=== PATIENT | female | born 1935 | race Caucasian/White ===

== ENCOUNTER → 2017-07-11 | Outpatient (CLI) | payer MEDICARE, BC ==
--- NOTE | 2017-07-12 22:54 | MR ---
MRI CERVICAL SPINE: CLINICAL HISTORY: Spinal stenosis with myelopathy, neuropathy, imbalance, and abnormal reflexes all p er order. Patient has balance issues and dizziness for 3 months causing pain and weakness into both a jo and fingers per patient. TECHNIQUE: Multiplanar, multisequence imaging of the cervical spine is performed without IV contrast. COMPARISON: None. FINDINGS: Coronal images show levoconvex scoliosis centered near cervicothoracic junction. Sagittal i mages show increased cervical kyphosis. Sagittal images of the cervical spine show the craniocervical junction to appear within normal limits. The cervical and upper thoracic spinal cord is normal in c ourse, caliber, and signal. The vertebral body heights are normal. There is moderate to severe multi level disc space narrowing and moderate multilevel spurring. There are posterior spur disc complexes and disc herniations effacing anterior thecal sac at all cervical levels on sagittal images. The bone marrow signal intensity is within normal limits. Axial [id number]-[id number] level shows central disc protrusion effacing the anterior thecal sac seen best on sagittal images, bilateral neural foramina are patent. Axial images at C3-C4 level show more prominent focal right paracentral disc protrusion effacing the anterior thecal sac up to ventral surface of spinal cortex image 35, there is mild to moderate left g reater than right neural foraminal narrowing due to marginal spurring and uncovertebral facet arthrop athy bilaterally. Axial images at C4-C5 shallow posterior spur disc complex effacing anterior thecal sac of the ventral surface of spinal cord with moderate to severe left and mild right-sided neural foraminal narrowing due to marginal spurring and uncovertebral facet arthropathy. Axial images at C5-C6 levels show left paracentral disc protrusion effacing anterior lateral thecal s ac of the ventral surface of spinal cord on axial image 24, there is mild left greater than right abebe ral foraminal narrowing due to marginal spurring. Axial images at C6-C7 levels with broad-based left paracentral disc protrusion effacing the anterolat eral thecal sac causing some mass effect along the ventral surface of spinal cord more prominent than on sagittal images, there is no significant neural foraminal narrowing noted bilaterally. Axial images at C7-T1 level are felt within normal limits. IMPRESSION: Scoliosis and exaggerated cervical curvature, multilevel degenerative changes are seen as detailed above.
== END | disposition home or self-care (01) ==
LOC: RADMRIMAIN 16:20
PROVIDERS: ATTEND Psychiatry & Neurology Neurology
DX: M47.812 Spondylosis without myelopathy or radiculopathy, cervical region (principal); M41.82 Other forms of scoliosis, cervical region; M43.8X2 Other specified deforming dorsopathies, cervical region; G60.9 Hereditary and idiopathic neuropathy, unspecified; R29.2 Abnormal reflex
CPT/HCPCS: 72141

== ENCOUNTER → 2019-04-01 | Outpatient (CLI) | payer MEDICARE, BC ==
[2019-04-01 18:52] LABS: Albumin 4.8 g/dL (3.80-4.90); Albumin/Globulin Ratio 3.2 (1.60-3.17); Anion Gap 8.4 mmol/L (4.00-12.00); Carbon Dioxide 29.6 mmol/L (21.6-31.8); Chol/HDL Ratio 2.29; Globulin 1.5 g/dL (1.6-3.3); LDL Cholesterol,Calculated 70.6 mg/dL (0.0-131.0); Non-African American GFR(CKD) 68.2 (60.0-200.0); Potassium 4.4 mmol/L (3.5-5.5); Total Bilirubin 0.6 mg/dL (0.3-1.2); Total Protein 6.3 g/dL (6.2-8.2); VLDL Calculation 17.4 mg/dL (5.00-40.00)
== END | disposition home or self-care (01) ==
LOC: LABWHC1 12:08
PROVIDERS: ATTEND Internal Medicine Interventional Cardiology
DX: E78.2 Mixed hyperlipidemia (principal)
CPT/HCPCS: 36415; 80053; 80061

== ENCOUNTER → 2019-04-05 | Day surgery (SDC) | payer MEDICARE, BC ==
[2019-04-02 09:35] VITALS: BMI 24.3
[~2019-04-05] MED LIST: ALPRAZolam 0.25 MG TAB PO PRN; ALPRAZolam 0.5 MG TAB PO PRN; ASPIRIN 325 MG TAB PO STA; ASPIRIN 81 MG PO SCH; CALCIUM CARBONATE 500 MG CHEWABLE PO SCH; DILTIAZEM CD 120 MG CAP.ER.24H PO SCH; DOCUSATE 100 MG CAP PO PRN; FLUTICASONE 50MCG/SPRAY NASAL 16GM EA NOSTRIL SCH; HEPARIN SODIUM 1,000 UN/ML (10ML VL) IV ONE; HEPARIN SODIUM 1,000 UN/ML (10ML VL) ONE; HYDROcodone/APAP 5-325MG 1 EACH TAB PO SCH; IOPAMIDOL-370 125ML BTL INJ ONE; LIDOCAINE 1% INJ 10MG/ML (20 ML MDV) ONE; LISINOPRIL 5 MG TAB PO SCH; MULTIVITAMINS, THERA 1 EACH TAB PO SCH; NITROGLYCERIN SL TABS 0.4 MG TAB SUBLINGUAL PRN; NON FORMULARY DRUG (Turmeric Root Extract [Turmeric] 500 MG) PO SCH; RX INFO: IV CONTRAST WAS GIVEN 1 EACH MISC MISCELLANE PRN; SERTRALINE 50 MG TAB PO SCH; SODIUM CHLORIDE 0.9% 1,000 ML IV SCH; SODIUM CHLORIDE 0.9% 1,000 ML in EMPTY BAG 1 BAG IV ONE; VERAPAMIL 2.5 MG/ML 2 ML AMP ONE; VERAPAMIL SYRINGE (5 MG/10 ML) INTRAARTER ONE; fentaNYL (PF) 50 MCG/ML 2 ML AMP IV ONE; fentaNYL (PF) 50 MCG/ML 2 ML AMP ONE
[2019-04-05 07:00] LABS: Basophils # (A) 0.1 k/uL (0-0.2); Basophils % (A) 1 %; Eosinophils # (A) 0.2 k/uL (0-0.7); Eosinophils % (A) 3 %; HCT 41.4 % (34.0-46.0); HGB 14.2 gm/dL (11.4-16.0); Lymphocytes % (A) 18 %; MCH 31.9 pg (25.0-35.0); MCHC 34.3 g/dL (31.0-37.0); MCV 92.9 fL (80.0-100.0); Mean Platelet Volume 7.9; Monocytes # (A) 0.3 k/uL (0-1.0); Monocytes % (A) 6 %; Neutrophils # (A) 3.7 k/uL (1.3-7.7); Neutrophils % (A) 70 %; Platelet Count 194 k/uL (150-450); RBC 4.46 m/uL (3.80-5.40); RDW 12.2 % (11.5-15.5); WBC 5.3 k/uL (3.8-10.6)
[2019-04-05 07:03] VITALS: TEMP 98
[2019-04-05] MEDS: LIDOCAINE 1% INJ 10MG/ML (20 ML MDV) SQ ONE ×2 (07:38→07:52)
[2019-04-05 08:45] VITALS: RESP 16
[2019-04-05 10:49] VITALS: BP 141/74; PULSE 57
--- NOTE | 2019-04-05 11:13 | CC ---
CARDIAC CATHETERIZATION REPORT Mrs. Najera is an 83-year-old female with known history of hypertension, hyperlipidemia, who has been complaining of progressive symptoms of dyspnea on exertion as well as chest discomfort. She had an abnormal myocardial perfusion imaging. In view of that, recommendations were made regarding cardiac catheterization, the procedures, risks, and complications were discussed with the patient who is in full understanding and agreement. PROCEDURE: Patient was brought to field laborer in a fasting semi-sedated state after receiving fentanyl and Benadryl and achieving moderate conscious sedated state. Using Xylocaine anesthesia and Seldinger technique, a 6-Filipino sheath was introduced in the right radial artery. Attempts to advance the right Walter catheter into ascending aorta were unsuccessful because of the severe tortuosity at that time. Using Xylocaine anesthesia and Seldinger technique, a 6-Filipino sheath was introduced in the right femoral artery. Selective right and left coronary angiography performed using 6-Filipino 5 bend left Walter catheter and 4 bend right Walter catheter. Images of the coronary artery including hemiaxial views were obtained. Following that, a 6-Filipino tight pigtail catheter was introduced into the left ventricle and pressures were calculated. Subsequently, an ascending aortogram was performed in the MADAI view. Subsequently, catheter and sheath were removed. Hemostasis was obtained with deployment of an Angio- Seal in the right femoral artery and a TR band in the right radial artery. There was no immediate complication. The patient was returned to her room in stable condition. Of note, the patient received 3500 units of intravenous heparin as well as intra- arterial verapamil. FINDINGS: LEFT MAIN: This is a large-sized vessel bifurcating into left circumflex, left anterior descending artery. Left main coronary artery has no evidence of high- grade stenosis. LEFT ANTERIOR DESCENDING ARTERY: This is a large-sized vessel, reaching toward the apex with a wraparound apex segment, tortuous, giving rise to a large diagonal branch. The left anterior descending artery in mid segment has a 30% to 40% plaque. The rest of the vessel has no high-grade stenosis. LEFT CIRCUMFLEX: This is a nondominant vessel, large in caliber, giving rise to 2 obtuse marginal branch, the first one is very proximal. The left circumflex and its branches have no evidence of obstructive coronary artery disease. RIGHT CORONARY ARTERY: This is a dominant vessel, bifurcating distally into PDA and posterolateral segment and branches. The right coronary artery in the proximal segment has a tubular lesion of about 30%-40%. The rest of the vessel has no high-grade stenosis. LEFT VENTRICULOGRAM: Left ventriculogram was not performed. AORTOGRAM: Revealed a severely dilated ascending aorta at 5.9 cm with a 2 to 3+ aortic regurgitation. There was atherosclerotic changes of the abdominal aorta HEMODYNAMICS: There was no gradient across the aortic valve. The left ventricular end- diastolic pressure was 20-24 mmHg. CONCLUSION: 1. Mild to moderate disease involving the right coronary artery and the LAD. 2. 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 RECOMMENDATION: In view of finding anatomy, I recommend continue medical therapy. Patient will undergo a CT scan of the ascending aorta for further evaluation and further recommendation will be made regarding the need to undergo ascending aortic intervention. Those findings and recommendation were discussed with the patient and her family who are in full understanding and agreement. Duration of the procedure is 35 minutes. YVONNE / JUDYN: [id number] / MTDD
--- NOTE | 2019-04-05 11:16 | LTR ---
DATE OF SERVICE: 04/05/2019 RE: KhangTad bergeron Dear Dr. Mcgarry; I had the pleasure to perform cardiac catheterization on Mrs. Najera at [facility] on April 05 and a full copy of the procedure note will be forwarded to you. In brief, she was found to have mild to moderate coronary artery disease with aneurysmal formation of the ascending aorta. I would recommend to proceed further evaluation for her ascending aorta and aortic regurgitation to see if further intervention is needed. I will keep you updated on her progress. Thank you again for allowing me to perform in this patient's personal care. Please feel free to call for any questions. Sincerely yours, MD YVONNE [place] / JUDYN: [id number] /
== END ==
LOC: CATHCVL 06:04
PROVIDERS: ATTEND Internal Medicine Interventional Cardiology
DX: I25.10 Atherosclerotic heart disease of native coronary artery without angina pectoris (principal); I35.1 Nonrheumatic aortic (valve) insufficiency; I71.2 Thoracic aortic aneurysm, without rupture; I10 Essential (primary) hypertension; E78.2 Mixed hyperlipidemia; Q21.1 Atrial septal defect; Z79.899 Other long term (current) drug therapy; Z88.2 Allergy status to sulfonamides; Z82.49 Family history of ischemic heart disease and other diseases of the circulatory system
CPT/HCPCS: 93458; 93567; 85025; C1760; C1769 ×3; C1894 ×2; J2001; J3010; J1644; Q9967

== ENCOUNTER → 2019-04-09 | Outpatient (CLI) | payer MEDICARE, BC ==
[2019-04-09 13:56] LABS: African American GFR (CKD) >90 (>60 ml/min/1.73 sqM); Blood Urea Nitrogen 24 mg/dL (7-17); Non-African American GFR(CKD) 79 (>60 ml/min/1.73 sqM)
--- NOTE | 2019-04-09 15:33 | CT ---
CT CHEST FOR PULMONARY EMBOLISM. EXAMINATION TYPE: CT angio chest DATE OF EXAM: 04/09/2019 INDICATION: thoracic aneurysm, abn cath CT DLP: 557 mGycm, Automated exposure control for dose reduction was used. CONTRAST: Patient injected with 100 mL of Isovue 370. COMPARISON: 05/25/2014 TECHNIQUE: CT of the chest is performed on a spiral scan at 2 mm thick sections. Study is performed with intravenous contrast timed for evaluation for pulmonary embolism. This will limit additional po rtions of the evaluation. 3-D MIP images reconstructed by the technologist are reviewed on the compu ter in the coronal and sagittal planes. FINDINGS: No persistent filling defects are evident to suggest an acute pulmonary embolism. No mediastinal or hilar adenopathy enlarged by CT criteria is evident. The ascending aorta diameter at the level of the main pulmonary artery is 5.7 cm. The main pulmonary artery diameter at the bifur cation is 2.9 cm. The proximal aortic arch has a transverse dimension of 5.1 cm. Aorta at the aortic root is 4.7 cm. Descending thoracic aorta at the level of main pulmonary artery is 2.6 cm. No dissect ion is evident. No septal deviation is evident. There is a small amount reflux into the distal inferi or vena cava. Lung windows are clear. Limited CT section through the upper abdomen are unremarkable. There are loops of bowel lateral to th e liver. IMPRESSIONS: 1. Aneurysmal dilatation of the ascending thoracic aorta with an AP diameter maximum 5.6 cm at the le jesus manuel of main pulmonary artery.
== END | disposition home or self-care (01) ==
LOC: RADCTMAIN 13:14
PROVIDERS: ATTEND Internal Medicine Interventional Cardiology
DX: I71.2 Thoracic aortic aneurysm, without rupture (principal); I10 Essential (primary) hypertension
CPT/HCPCS: 82565; 84520; 71275; 36415; Q9967

== ENCOUNTER → 2019-04-29 | Outpatient (CLI) | payer MEDICARE, BC ==
[2019-04-29 10:31] LABS: HCT 43.2 % (34.0-46.0); HGB 14.2 gm/dL (11.4-16.0); MCH 31.3 pg (25.0-35.0); MCHC 32.9 g/dL (31.0-37.0); MCV 95.3 fL (80.0-100.0); Mean Platelet Volume 8.5; Platelet Count 203 k/uL (150-450); RBC 4.54 m/uL (3.80-5.40); WBC 4.9 k/uL (3.8-10.6)
[2019-04-29 10:36] LABS: Partial Thromboplastin Time 27.6 sec (22.0-30.0); Prothrombin Time 10.4 sec (9.0-12.0)
[2019-04-29 10:40] LABS: Appearance,Urine Clear (Clear); Bilirubin,Urine Negative (Negative); Blood,Urine Negative (Negative); Color,Urine Light Yellow; Glucose,Urine (UA) Negative (Negative); Ketones,Urine Negative (Negative); Leukocyte Esterase,Urine Negative (Negative); Nitrite,Urine Negative (Negative); Protein,Urine Negative (Negative); Specific Gravity,Urine 1.004 (1.001-1.035); Urobilinogen,Urine <2.0 mg/dL (<2.0)
[2019-04-29 10:57] LABS: Albumin 4.5 g/dL (3.5-5.0); Calcium 9.6 mg/dL (8.4-10.2); Magnesium 2.1 mg/dL (1.6-2.3); Potassium 4.2 mmol/L (3.5-5.1); Total Bilirubin 0.8 mg/dL (0.2-1.3); Total Protein 6.9 g/dL (6.3-8.2)
--- NOTE | 2019-04-29 10:58 | P.PN ---
Progress Note - Text Progress Note Date: 04/29/19 5 meter walk test completed: #1 4.98 sec #2 5.35 sec #3 5.31 sec Patient tolerated well, no chest pain or shortness of breath reported.
--- NOTE | 2019-04-29 11:43 | XR ---
EXAMINATION TYPE: XR chest 2V DATE OF EXAM: 04/29/2019 COMPARISON: CT chest dated 04/09/2019 HISTORY: Presurgical evaluation for valve replacement. TECHNIQUE: Frontal and lateral views of the chest are obtained. FINDINGS: There is no focal air space opacity, pleural effusion, or pneumothorax seen. The cardiac silhouette size is slightly enlarged but shifted to the left secondary to patient positioning. The os seous structures are intact. Moderate multilevel degenerative disc disease of the thoracic spine. Mil d diffuse osseous demineralization. IMPRESSION: No acute cardiopulmonary process. Ascending thoracic aortic prominence relates to the jair fuentes's known aneurysm on the prior CT of 04/09/2019.
--- NOTE | 2019-04-29 12:22 | US ---
EXAMINATION TYPE: US carotid duplex BILAT DATE OF EXAM: 04/29/2019 COMPARISON: 12/16/2013 CLINICAL HISTORY: I35.1 Aortic Stenosis I34.0 mitral Valve Regurgita. pre op cardiac surgery EXAM MEASUREMENTS: RIGHT: Peak Systolic Velocity (PSV) cm/sec ----- Right CCA: 54.0 ----- Right ICA: 83.6 ----- Right ECA: 80.8 ICA/CCA ratio: 1.55 RIGHT: End Diastole cm/sec ----- Right CCA: 21.1 ----- Right ICA: 28.2 ----- Right ECA: 9.4 LEFT: Peak Systolic Velocity (PSV) cm/sec ----- Left CCA: 49.8 ----- Left ICA: 121 ----- Left ECA: 76.0 ICA/CCA ratio: 2.43 LEFT: End Diastole cm/sec ----- Left CCA: 12.2 ----- Left ICA: 34.4 ----- Left ECA: 10.7 VERTEBRALS (direction of flow): Right Vertebral: Antegrade Left Vertebral: Antegrade Rhythm: Normal Mild to moderate plaque noted bilateral bifurcations. 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 No hemod ynamically significant stenosis in the right visualized carotid arterial system. Criteria for Assigning % of Stenosis / Diameter reduction (Estimation based on the indirect measurements of the internal carotid artery velocities (ICA PSV). 1. Normal (no stenosis)=ICA PSV < 125 cm/s: ratio < 2.0: ICA EDV<40 cm/s. 2. Less than 50% stenosis=ICA PSV < 125 cm/s: ratio < 2.0: ICA EDV<40 cm/s. 3. 50 to 69% stenosis=ICA PSV of 125 to 230 cm/s: ration 2.0 ? 4.0: ICA EDV 40-100 cm/s. 4. Greater than 70% stenosis to near occlusion= ICA PSV > 230 cm/s: ratio > 4.0: ICA EDV > 100 cm/s. 5. Near occlusion= ICA PSV velocities may be low or undetectable: variable ratio and ICA EDV. 6. Total occlusion=unable to detect flow.
[2019-04-29 16:31] LABS: Hepatitis A Antibody IgM Non-Reactive (Non-Reactive); Hepatitis B Core IgM Non-Reactive (Non-Reactive); Hepatitis B Surface Antigen Non-Reactive (Non-Reactive); Hepatitis C IgG Antibody Non-Reactive (Non-Reactive)
[2019-04-29 18:34] LABS: Hemoglobin A1C 5.3 % (4.0-6.0)
== END | disposition home or self-care (01) ==
LOC: LABPAT 07:22
PROVIDERS: ATTEND Thoracic Surgery (Cardiothoracic Vascular Surgery)
DX: Z01.818 Encounter for other preprocedural examination (principal); Z01.812 Encounter for preprocedural laboratory examination; I71.2 Thoracic aortic aneurysm, without rupture; I25.10 Atherosclerotic heart disease of native coronary artery without angina pectoris
CPT/HCPCS: 36415; 71046; 80053; 80061; 80074; 81003; 83036; 83735; 84443; 85027; 85610; 85730; 87070; 87086; 93005; 93880; 93970

== ENCOUNTER → 2019-05-06 | Outpatient (CLI) | payer MEDICARE, BC | END | disposition home or self-care (01) | LOC: LABPAT 13:12 | PROVIDERS: ATTEND Thoracic Surgery (Cardiothoracic Vascular Surgery) | DX: I10 Essential (primary) hypertension (principal); I25.10 Atherosclerotic heart disease of native coronary artery without angina pectoris; I35.0 Nonrheumatic aortic (valve) stenosis; I71.2 Thoracic aortic aneurysm, without rupture; Z79.899 Other long term (current) drug therapy; Z79.01 Long term (current) use of anticoagulants | CPT/HCPCS: 86850; 86900; 86901; 86920 ==

== ENCOUNTER → 2019-05-28 | Outpatient (CLI) | payer MEDICARE, BC ==
[2019-05-28 12:12] LABS: INR 0.9 (<1.2); Partial Thromboplastin Time 26.6 sec (22.0-30.0); Prothrombin Time 9.7 sec (9.0-12.0)
[2019-05-28 12:22] LABS: HCT 41.1 % (34.0-46.0); HGB 13.4 gm/dL (11.4-16.0); MCH 30.8 pg (25.0-35.0); MCHC 32.7 g/dL (31.0-37.0); MCV 94.1 fL (80.0-100.0); Mean Platelet Volume 7.7; Platelet Count 196 k/uL (150-450); RBC 4.37 m/uL (3.80-5.40); RDW 12.1 % (11.5-15.5)
[2019-05-28 12:38] LABS: Albumin 4.6 g/dL (3.5-5.0); Calcium 10.6 mg/dL (8.4-10.2); Potassium 4.7 mmol/L (3.5-5.1); Total Bilirubin 0.7 mg/dL (0.2-1.3); Total Protein 6.9 g/dL (6.3-8.2)
== END | disposition home or self-care (01) ==
LOC: LABPAT 11:18
PROVIDERS: ATTEND Thoracic Surgery (Cardiothoracic Vascular Surgery)
DX: I25.10 Atherosclerotic heart disease of native coronary artery without angina pectoris (principal); I71.2 Thoracic aortic aneurysm, without rupture; I35.0 Nonrheumatic aortic (valve) stenosis; Z79.01 Long term (current) use of anticoagulants
CPT/HCPCS: 36415; 80053; 85027; 85610; 85730; 86850; 86900; 86901; 86920

== ENCOUNTER 2019-06-01 05:40 | Inpatient (IN) | payer MEDICARE, BC ==
[~2019-06-01 05:40] MED LIST changes: +ALBUMIN HUMAN 25% 50 ML IV ONE; -ALPRAZolam 0.25 MG TAB PO PRN; -ALPRAZolam 0.5 MG TAB PO PRN; +ASPIRIN 325 MG TAB PO ONE; -ASPIRIN 325 MG TAB PO STA; -ASPIRIN 81 MG PO SCH; +ATORVASTATIN 10 MG TAB PO ONE; -CALCIUM CARBONATE 500 MG CHEWABLE PO SCH; +CALCIUM CHLORIDE 100 MG/ML 10 ML SYRINGE IV ONE; +CARDIOPLEGIC SOLN (K+ 16 MEQ/L 1,000 ML with SODIUM BICARB (1 MEQ/ML) 20 ML, LIDOCAINE ... PERFUSION ONE; +CLEVIDIPINE BUTYRATE 25 MG in EMPTY BAG 1 BAG IV ONE; -DILTIAZEM CD 120 MG CAP.ER.24H PO SCH; -DOCUSATE 100 MG CAP PO PRN; -FLUTICASONE 50MCG/SPRAY NASAL 16GM EA NOSTRIL SCH; -HEPARIN SODIUM 1,000 UN/ML (10ML VL) ONE; +HEPARIN SODIUM,PORCINE 5,000 UNIT in SODIUM CHLORIDE 0.9% 500 ML 500 ML IV ONE; -HYDROcodone/APAP 5-325MG 1 EACH TAB PO SCH; +INSULIN REGULAR 100 UNIT in SODIUM CHLORIDE 0.9% 100 ML IV ONE; -IOPAMIDOL-370 125ML BTL INJ ONE; +LACTATED RINGERS 1,000 ML IV ONE; -LIDOCAINE 1% INJ 10MG/ML (20 ML MDV) ONE; -LISINOPRIL 5 MG TAB PO SCH; +MAGNESIUM SULFATE MG 500 MG/ML IV ONE; +MANNITOL 25% 12.5 GM/50 ML VIAL IV ONE; +METOPROLOL TARTRATE 12.5 MG TAB PO ONE; -MULTIVITAMINS, THERA 1 EACH TAB PO SCH; -NITROGLYCERIN SL TABS 0.4 MG TAB SUBLINGUAL PRN; +NITROGLYCERIN-D5W PMX 25 MG/250 ML BTL IV ONE; +NITROGLYCERIN-D5W PMX 50 MG in DEXTROSE/WATER 1 250ML.BAG IV ONE; -NON FORMULARY DRUG (Turmeric Root Extract [Turmeric] 500 MG) PO SCH; +NOREPINEPHRINE 4 MG in SODIUM CHLORIDE 0.9% 250 ML IV ONE; +PAPAVERINE 360 MG in SODIUM CHLORIDE 0.9% 90 ML IV ONE; +PHENYLEPHRINE 40 MG in SODIUM CHLORIDE 0.9% 250 ML IV ONE; +PROPOFOL 1,000 MG/100 ML VIAL IV ONE; +PROTAMINE SULFATE 10 MG/ML 25 ML VIAL IV ONE; +PROTAMINE SULFATE 250 MG in EMPTY BAG 1 BAG IV ONE; -RX INFO: IV CONTRAST WAS GIVEN 1 EACH MISC MISCELLANE PRN; -SERTRALINE 50 MG TAB PO SCH; +SODIUM BICARB 8.4% 50 ML SYR (1 MEQ/ML) IV ONE; +SODIUM CHLORIDE 0.9% 1,000 ML IV ONE; -SODIUM CHLORIDE 0.9% 1,000 ML IV SCH; -SODIUM CHLORIDE 0.9% 1,000 ML in EMPTY BAG 1 BAG IV ONE; +TRANEXAMIC ACID 2,000 MG in SODIUM CHLORIDE 0.9% 80 ML IV ONE; -VERAPAMIL 2.5 MG/ML 2 ML AMP ONE; -VERAPAMIL SYRINGE (5 MG/10 ML) INTRAARTER ONE; +ceFAZolin 1,000 MG in SODIUM CHLORIDE 0.9% IRRIGATIO 1,000 ML IRRIGATION ONE; +ceFAZolin 2,000 MG in SODIUM CHLORIDE 0.9% 30 ML IVPB ONE; -fentaNYL (PF) 50 MCG/ML 2 ML AMP IV ONE; -fentaNYL (PF) 50 MCG/ML 2 ML AMP ONE
[2019-06-01] MEDS ORDERED: LIDOCAINE 1% (10MG/ML) FOR IV START INTRADERMA ONE (06:24)
[2019-06-01 06:34] LABS: Glucose,Whole Blood 104 mg/dL (75-99)
[2019-06-01] MEDS ORDERED: MIDAZOLAM 2 MG/2 ML VIAL ONE (07:51)
[2019-06-01] MEDS ORDERED: VECURONIUM 10 MG VIAL IV ONE (07:51)
[2019-06-01] MEDS ORDERED: HEPARIN SODIUM,PORCINE 10,000 UNIT/ML 1 ML VIAL ONE (07:51)
[2019-06-01] MEDS ORDERED: SODIUM CHLORIDE 0.9% 250 ML BAG ONE (07:51)
[2019-06-01] MEDS ORDERED: PROPOFOL 10 MG/ML 20 ML VIAL IV ONE (07:51)
[2019-06-01] MEDS ORDERED: LACTATED RINGERS 1,000 ML BAG IV ONE (07:51)
[2019-06-01] MEDS ORDERED: methylPREDNISolone SOD SUCCI 125 MG/2 ML VIAL ONE (07:51)
[2019-06-01] MEDS ORDERED: TRANEXAMIC ACID 1,000 MG/10 ML VIAL ONE (07:51)
[2019-06-01] MEDS ORDERED: fentaNYL (PF) 50 MCG/ML 50 ML VIAL ONE (07:51)
[2019-06-01] MEDS ORDERED: fentaNYL (PF) 50 MCG/ML 2 ML AMP ONE (07:51)
[2019-06-01] MEDS ORDERED: HEPARIN SODIUM,PORCINE 5,000 UNIT/ML 1 ML VIAL ONE (07:51)
[2019-06-01] MEDS ORDERED: ELECTROLYTE-R (PH 7.4) 1,000 ML IV.SOLN IV ONE (07:51)
[2019-06-01] MEDS ORDERED: PROTAMINE SULFATE 10 MG/ML 25 ML VIAL IV ONE (07:51)
[2019-06-01] MEDS ORDERED: POTASSIUM CHLORIDE OPEN HEART 20 MEQ/50 ML BAG IVPB ONE (07:51)
[2019-06-01] MEDS ORDERED: ePHEDrine SULFATE/0.9% NACL/PF 50 MG/5 ML SYRINGE IV ONE (07:51)
[2019-06-01] MEDS ORDERED: NITROGLYCERIN-D5W PMX 50 MG/250 ML BOTTLE IV ONE (07:51)
[2019-06-01 08:44] LABS: ABG Base Excess 3.1 mmol/L; ABG Glucose Whole Blood 87 mg/dL (75-99); ABG HCO3 28 mmol/L (21-25); ABG Hematocrit 35 % (34.0-46.0); ABG Ionized Calcium 4.8 mg/dL (4.5-5.3); ABG Oxygen Saturation 99.9 % (94-97); ABG PCO2 41 mmHg (35-45); ABG PH 7.44 (7.35-7.45); ABG PO2 225 mmHg (83-108); ABG Potassium Whole Blood 3.7 mmol/L (3.4-4.5); ABG Sodium Whole Blood 142 mmol/L (135-146); ABG TCO2 29 mmol/L (19-24)
[2019-06-01 10:25] LABS: ABG Glucose Whole Blood 116 mg/dL (75-99); ABG HCO3 27 mmol/L (21-25); ABG Hematocrit 31 % (34.0-46.0); ABG Ionized Calcium 4.8 mg/dL (4.5-5.3); ABG Lactic Acid Whole Blood 1.5 mmol/L (0.5-1.6); ABG Oxygen Saturation 99.8 % (94-97); ABG PCO2 40 mmHg (35-45); ABG PH 7.43 (7.35-7.45); ABG PO2 267 mmHg (83-108); ABG Potassium Whole Blood 3.6 mmol/L (3.4-4.5); ABG Sodium Whole Blood 140 mmol/L (135-146); ABG TCO2 28 mmol/L (19-24)
[2019-06-01] MEDS ORDERED: CARDIOPLEGIC SOLN (K+ 16 MEQ/L 1,000 ML with SOD BICARB SYR 8.4% (1 MEQ/ML) 20 ML, LIDO... PERFUSION STA ×6 (10:32→12:24)
[2019-06-01 10:54] LABS: ABG Base Excess -0.8 mmol/L; ABG Glucose Whole Blood 117 mg/dL (75-99); ABG HCO3 23 mmol/L (21-25); ABG Ionized Calcium 3.9 mg/dL (4.5-5.3); ABG Lactic Acid Whole Blood 1.5 mmol/L (0.5-1.6); ABG PCO2 35 mmHg (35-45); ABG PH 7.43 (7.35-7.45); ABG Potassium Whole Blood 3.5 mmol/L (3.4-4.5); ABG Sodium Whole Blood 134 mmol/L (135-146); ABG TCO2 24 mmol/L (19-24)
[2019-06-01 11:24] LABS: ABG Base Excess -0.5 mmol/L; ABG Glucose Whole Blood 113 mg/dL (75-99); ABG HCO3 24 mmol/L (21-25); ABG Ionized Calcium 4.4 mg/dL (4.5-5.3); ABG Lactic Acid Whole Blood 1.3 mmol/L (0.5-1.6); ABG PCO2 37 mmHg (35-45); ABG PH 7.42 (7.35-7.45); ABG Potassium Whole Blood 4.3 mmol/L (3.4-4.5); ABG Sodium Whole Blood 136 mmol/L (135-146); ABG TCO2 25 mmol/L (19-24)
[2019-06-01 12:12] LABS: ABG Base Excess -2.9 mmol/L; ABG Glucose Whole Blood 129 mg/dL (75-99); ABG HCO3 24 mmol/L (21-25); ABG Ionized Calcium 4.3 mg/dL (4.5-5.3); ABG Oxygen Saturation 99.8 % (94-97); ABG PCO2 54 mmHg (35-45); ABG PH 7.26 (7.35-7.45); ABG PO2 371 mmHg (83-108); ABG Potassium Whole Blood 3.8 mmol/L (3.4-4.5); ABG Sodium Whole Blood 135 mmol/L (135-146); ABG TCO2 26 mmol/L (19-24)
[2019-06-01 12:46] LABS: ABG Base Excess -1.3 mmol/L; ABG Glucose Whole Blood 172 mg/dL (75-99); ABG HCO3 26 mmol/L (21-25); ABG Ionized Calcium 4.4 mg/dL (4.5-5.3); ABG Oxygen Saturation 99.9 % (94-97); ABG PCO2 58 mmHg (35-45); ABG PH 7.26 (7.35-7.45); ABG Potassium Whole Blood 4.1 mmol/L (3.4-4.5); ABG Sodium Whole Blood 137 mmol/L (135-146); ABG TCO2 28 mmol/L (19-24)
[2019-06-01] MEDS: CHLORHEXIDINE GLUCONATE 15 ML CUP MUCOUS MEM ONE (15:46)
[2019-06-01 16:07] LABS: Basophils % (A) 0 %; Eosinophils % (A) 0 %; Lymphocytes # (A) 0.2 k/uL (1.0-4.8); Lymphocytes % (A) 5 %; MCHC 34.2 g/dL (31.0-37.0); MCV 90.5 fL (80.0-100.0); Mean Platelet Volume 9.4; Monocytes # (A) 0.1 k/uL (0-1.0); Monocytes % (A) 3 %; Neutrophils # (A) 4.6 k/uL (1.3-7.7); Neutrophils % (A) 92 %; Platelet Count 122 k/uL (150-450); RBC 2.65 m/uL (3.80-5.40); RDW 13.1 % (11.5-15.5)
[2019-06-01 16:11] LABS: HGB 8.2 gm/dL (11.4-16.0)
[2019-06-01] MEDS ORDERED: CALCIUM GLUCONATE 2 GM in SODIUM CHLORIDE 0.9% 100 ML IVPB PRN (16:41)
[2019-06-01] MEDS ORDERED: ALBUMIN HUMAN 5% 250 ML in EMPTY BAG 1 BAG IVPB PRN (16:41)
[2019-06-01] MEDS ORDERED: Potassium Replacement Protocol 1 EACH MISC MISCELLANE PRN ×2 (16:41→19:04)
[2019-06-01] MEDS ORDERED: Magnesium Replacement Protocol 1 EACH MISC MISCELLANE PRN (16:41)
[2019-06-01] MEDS ORDERED: INSULIN REGULAR 100 UNIT in SODIUM CHLORIDE 0.9% 100 ML IV SCH (16:41)
[2019-06-01] MEDS ORDERED: BENZOCAINE/MENTHOL LOZENG 1 EACH LOZENGE MUCOUS MEM PRN (16:41)
[2019-06-01] MEDS ORDERED: AMIODARONE 300 MG in DEXTROSE 5% IN WATER 250 ML IV PRN ×2 (16:41)
[2019-06-01] MEDS ORDERED: Phosphorus Replacement Protoco 1 EACH MISC MISCELLANE PRN (16:41)
[2019-06-01] MEDS ORDERED: NITROGLYCERIN-D5W PMX 50 MG in DEXTROSE/WATER 1 250ML.BAG IV SCH (16:41)
[2019-06-01] MEDS ORDERED: DEXTROSE 5% IN WATER 100 ML with AMIODARONE 150 MG IV PRN (16:41)
[2019-06-01] MEDS ORDERED: AMIODARONE 360 MG in DEXTROSE 5% IN WATER 200 ML IV PRN ×2 (16:41)
[2019-06-01 16:59] LABS: ABG Hematocrit 21 % (34.0-46.0); ABG PO2 >420 mmHg (83-108)
[2019-06-01 17:00] LABS: ABG Hematocrit 22 % (34.0-46.0); ABG PO2 >420 mmHg (83-108)
[2019-06-01 17:01] LABS: ABG Lactic Acid Whole Blood 2.2 mmol/L (0.5-1.6); ABG PO2 >420 mmHg (83-108)
[2019-06-01 17:01] LABS: ABG Hematocrit 24 % (34.0-46.0)
[2019-06-01 17:02] LABS: ABG Hematocrit 22 % (34.0-46.0)
[2019-06-01] MEDS: LACTATED RINGERS 1,000 ML IV SCH (17:05)
--- NOTE | 2019-06-01 17:10 | P.OP ---
Date of Procedure: 06/01/19 Preoperative Diagnosis: Ascending aortic aneurysm, aortic valve insufficiency, coronary artery disease Postoperative Diagnosis: Same Procedure(s) Performed: Replacement of ascending aorta with a 32 mm Gelweave tube graft with distal malik-arch reconstruction under circulatory arrest, replacement of aortic valve with 23 mm Avalus bovine pericardial prosthesis, CABG 1 with CORRALES to LAD, exclusion of the left atrial appendage with application of a 35 mm AtriCure clip, epi-aortic ultrasound, anterior mediastinal lymph node biopsy Implants: 32 mm Gelweave tube graft, 23 mm avalus bovine pericardial aortic valve, 35 mm AtriCure clip [facility] Sur[facility]: Darius Mcduffie Network Account Manager #1: Son [employer] Account Manager #2: Pedro Prado Estimated Blood Loss (ml): 500 IV fluids (ml): 4,000 Urine output (ml): 2,000 Pathology: other (Ascending aorta, aortic valve, anterior mediastinal lymph nodes) Condition: stable Disposition: ICU Indications for Procedure: 83-year-old female who presented with shortness of breath. She underwent cardiac catheterization. This demonstrated moderate coronary artery disease in the right and LAD systems. There was a markedly dilated ascending aorta. There was 3-4+ aortic valvular insufficiency. Patient underwent a CAT scan demonstrating 5.6 cm ascending aortic aneurysm extending from the sinotubular junction into the arch. There was significant calcification of the distal ascending and arch aorta. Elective surgery was scheduled. Operative Findings: The ascending aorta was markedly dilated. There was significant calcification of the distal ascending and arch aorta. The dilatation extended all the way to the proximal arch. There was a Bovie arch with common takeoff of the innominate artery and left carotid arteries. The arch distal to the takeoff of the Bovie arch was relatively normal. Aortic valve was tricuspid and minimally calcified. LAD had proximal calcifications. The CORRALES was a good conduit. There were enlarged anthracotic lymph nodes overlying the innominate artery. Description of Procedure: The patient was brought to the operating room and placed supine on the operating table. Gen. anesthesia was induced. She was intubated. The anterior chest and bilateral lower extremities were sterilely prepped and draped in standard fashion. Midline sternotomy was performed. Bilateral pleural spaces were opened widely. The left internal mammary artery was harvested on a vascularized pedicle left intact on its origin from the subclavian and divided distally. It was a good conduit. Pericardium was opened in the midline. The heart was exposed with pericardial sutures. Dissection was carried up onto the arch of the aorta. The aneurysm was noted to extend into the proximal arch. Dissection around the innominate vein was performed and it was mobilized and protected with a vessel loop. Bovie arch was dissected out. There was palpable calcification in the distal ascending aorta and proximal arch. The innominate artery itself appeared soft. Epi-aortic ultrasonography was performed. Findings revealed calcification in the distal ascending aorta and arch with a relatively normal- appearing mid and lower ascending aorta aside from their size and relatively normal-appearing innominate artery. Exposure the innominate artery was performed in order to cannulate here. There were some enlarged lymph nodes anterior to the innominate artery and these were resected in order to give us space. They were sent fresh for permanent section. The superior vena cava was mobilized and encircled. Cannulation sutures were placed in the innominate artery the superior vena cava and the right atrial appendage. Patient was heparinized and cannulated for cardiopulmonary bypass with a 6 mm soft flow cannula in the innominate artery, a small two-stage cannula through the right atrial appendage into the inferior vena cava, and a 28 right angle cannula in the superior vena cava extending toward the head. A umbilical tape was placed around the superior cava in order to control flow through the cannula. This was left loose at this time. Antegrade and retrograde cardioplegia lines were placed in standard fashion. Patient was placed on cardiopulmonary bypass. The aorta was dissected out and away from the pulmonary artery. We now placed a 35 mm AtriCure clip at the base of the left atrial appendage. The mid ascending aorta was clamped and the heart arrested with cold crystalloid antegrade cardioplegia. CORRALES was prepared. A left atrial vent was placed through the right superior pulmonary vein. OCRRALES to the LAD anastomosis was performed first. The LAD was a 1.5-1.75 mm vessel was grafted in its midportion CORRALES to LAD anastomosis performed with running 8-0 Prolene suture at completion anastomosis it was probed with a 1.5 mm probe. The CUONG pedicle was tacked running epicardium with 6-0 silk. Next the ascending aorta was divided inferior to the clamp. TA second incision was made on the ascending aorta just above the sinotubular junction and a portion of the ascending aorta was placed in formalin. Aortic valve was examined. It was a tricuspid valve with minimal calcific disease. It was excised. Circumferential valve sutures of 2-0 Tycron were placed with the pledgets on the ventricular side after appropriate decalcification of the annulus. The annulus was sized and a 23 millimeter bovine pericardial valve was washed and brought up on the field. Valve sutures were placed through the sewing ring of the valve and it was seated without difficulty. Valve sutures were tied and the valve was noted to seat well. We irrigated several times. We now performed the proximal anastomosis of the 32 mm Gelweave woven Dacron graft to the ascending aorta at the level of the sinotubular junction with a single layer running closure of 3-0 Prolene reinforced with Santino felt. On completion of this the distal portion of the graft was fashioned appropriately. A second dose of retrograde cardioplegia had been given during the proximal anastomosis. We also been cooling to have return of 24. This point we initiated circulatory arrest and divided the remaining portion of the distal aorta and the very proximal portion of the arch of the aorta. Appropriate decalcification of the arch of the aorta for the suture line was performed. Retrograde cerebral perfusion was performed through the superior vena caval cannula. The distal anastomosis was then constructed it with a single running layer of 3-0 Prolene reinforced with a strip of Santino felt. On completion of the anastomosis cardiopulmonary bypass was reinspected to 2 noted after stopping the retrograde cerebral perfusion. The graft was de-aired by needle holes. Suture lines were examined and there was no obvious bleeding. There was diffuse oozing from the needle holes. Rewarming was begun. The retrograde cardioplegia line was removed and the site closed and reinforced appropriately. Atrial and ventricular pacing wires were placed and the patient was paced. The superior vena caval cannula was clamped and removed and the site closed with pursestring suture. The left atrial vent had also been removed and pursestring suture tied with good hemostasis. Over the next hour we rewarmed to 36. Reinforcing sutures were placed as needed. Once we had rewarmed patient was weaned from cardia primary bypass without the use of inotropic support. Heparin was reversed with protamine and the patient was given fresh frozen and platelets until good hemostasis was obtained. Patient was pacer dependent and a second plate set of ventricular pacing wires was placed. Once we were satisfied with our hemostasis, bilateral pleural spaces were drained with 32-Slovak chest tubes in the mediastinum with 236-Slovak chest tubes. Sternum was closed with 6 Mersilene band's subcutaneous tissues with layers of Vicryl suture. The fascia was closed with 0 Ethibond. Irrigation with antibiotic solution was performed prior to and during closure. Patient remained hemodynamically stable through closure and there was no evidence of bleeding from the chest tubes. She was transferred to the ICU in stable condition. Circulatory arrest time was 17 minutes and total cross-clamp was circumflex arrest time was 97 minutes. The total of 2 units of packed red blood cells for units of platelets and 6 units of FFP was transfused.
[2019-06-01 17:18] LABS: Glucose,Whole Blood 171 mg/dL (75-99)
[2019-06-01 17:26] LABS: Basophils % (A) 0 %; Eosinophils % (A) 1 %; HCT 23.9 % (34.0-46.0); Lymphocytes # (A) 0.3 k/uL (1.0-4.8); Lymphocytes % (A) 6 %; MCH 30.2 pg (25.0-35.0); MCHC 33.3 g/dL (31.0-37.0); MCV 90.9 fL (80.0-100.0); Mean Platelet Volume 9.6; Monocytes # (A) 0.3 k/uL (0-1.0); Monocytes % (A) 5 %; Neutrophils # (A) 4.1 k/uL (1.3-7.7); Neutrophils % (A) 87 %; Platelet Count 108 k/uL (150-450); RBC 2.64 m/uL (3.80-5.40); RDW 13.1 % (11.5-15.5); WBC 4.7 k/uL (3.8-10.6)
[2019-06-01] MEDS: CLEVIDIPINE BUTYRATE 25 MG in EMPTY BAG 1 BAG IV SCH ×2 (17:30→22:48)
[2019-06-01 17:33] LABS: Ionized Calcium 4.3 mg/dL (4.5-5.3)
--- NOTE | 2019-06-01 17:36 | XR ---
EXAMINATION TYPE: XR chest 1V portable DATE OF EXAM: 06/01/2019 COMPARISON: 04/29/2019 HISTORY: Postop cardiac surgery TECHNIQUE: Single view FINDINGS: Endotracheal tube is at the rubén or slightly into the right mainstem bronchus. This shoul d BE pulled back 3 to 4 cm. There is nasogastric tube in the gastric fundus. There is right jugular c atheter with the tip in the main pulmonary artery. There is left side drainage catheters over the hea rt and left cardiac border. There is a right-sided chest tube. No pneumothorax. No heart failure seen . Patchy atelectasis is present in the lower lung bolaños. Heart size is normal. IMPRESSION: Endotracheal tube is low and should BE pulled back 4 cm. There is new patchy atelectasis in the lungs compared to preoperative exam.
[2019-06-01 17:40] LABS: ABG HCO3 30 mmol/L (21-25); ABG Oxygen Saturation 99.5 % (94-97); ABG PCO2 54 mmHg (35-45); ABG PH 7.35 (7.35-7.45); ABG PO2 212 mmHg (83-108); ABG TCO2 31 mmol/L (19-24); Allen Test Performed? Yes
[2019-06-01 17:40] LABS: ALT 20 U/L (4-34); AST 42 U/L (14-36); African American GFR (CKD) >90 (>60 ml/min/1.73 sqM); Albumin 2.7 g/dL (3.5-5.0); Alkaline Phosphatase 47 U/L (38-126); Anion Gap 2 mmol/L; Blood Urea Nitrogen 12 mg/dL (7-17); Calcium 7.4 mg/dL (8.4-10.2); Carbon Dioxide 31 mmol/L (22-30); Chloride 108 mmol/L (98-107); Glucose 154 mg/dL (74-99); Non-African American GFR(CKD) >90 (>60 ml/min/1.73 sqM); Potassium 3.7 mmol/L (3.5-5.1); Sodium 141 mmol/L (137-145); Total Bilirubin 0.9 mg/dL (0.2-1.3); Total Protein 4.7 g/dL (6.3-8.2)
[2019-06-01 17:49] LABS: INR 1.1 (<1.2); Partial Thromboplastin Time 27.1 sec (22.0-30.0); Prothrombin Time 11.3 sec (9.0-12.0)
[2019-06-01 18:24] LABS: Glucose,Whole Blood 180 mg/dL (75-99)
--- NOTE | 2019-06-01 19:06 | P.CNPUL ---
History of Present Illness Consult date: 06/01/19 Chief complaint: Severe aortic regurgitation, aortic aneurysm, post thoracotomy History of present illness: 83-year-old female who presented with shortness of breath. She underwent cardiac catheterization. This demonstrated moderate coronary artery disease in the right and LAD systems. There was a markedly dilated ascending aorta. There was 3-4+ aortic valvular insufficiency. Patient underwent a CAT scan demonstrating 5.6 cm ascending aortic aneurysm extending from the sinotubular junction into the arch. There was significant calcification of the distal ascending and arch aorta. Elective surgery was scheduled. The patient was bro ught into the operating room today and intraoperatively the patient was found to have The ascending aorta was markedly dilated. There was significant calcification of the distal ascending and arch aorta. The dilatation extended all the way to the proximal arch. There was a Bovie arch with common takeoff of the innominate artery and left carotid arteries. The arch distal to the takeoff of the Bovie arch was relatively normal. Aortic valve was tricuspid and minimally calcified. LAD had proximal calcifications. The CORRALES was a good conduit. There were enlarged anthracotic lymph nodes overlying the innominate artery. Based on this, the patient underwent a Replacement of ascending aorta with a 32 mm Gelweave tube graft with distal malik-arch reconstruction under circulatory arrest, replacement of aortic valve with 23 mm Avalus bovine pericardial prosthesis, CABG 1 with CORRALES to LAD, exclusion of the left atrial appendage with application of a 35 mm AtriCure clip, epi-aortic ultrasound, anterior mediastinal lymph node biopsy. The patient is currently postop in the intensive care unit. Intraoperatively the patient received a total of 6 units of fresh frozen plasma and 2 units of packed RBC. Currently I have him on assist control mode of ventilation. I put him on a rate of 20 with a tidal volume of 400 and FiO2 of 60% with a PEEP of 8. Cardiac output is 4.4 with an index of 2.4. PA pressures are 2514. He is on clevidipine drip for blood pressure control which is running at 4 mg an hour. He is well sedated with propofol. He is currently paced at the rate of 80. Producing urine output adequately. He has 2 mediastinal chest tubes and 2 pleural chest tube. Output from the mediastinal chest tube is been 600 mL and output from the left/right chest has been 60 mL. She is currently receiving platelets. Insulin drip at 4 units per hour.. Lactated ringer's at 50 mls per hour. Pacemaker wires in place. DDD. Currently A pacing V sensing. Mean arterial pressure 75. White count 4.7. Hemoglobin 8.0. Platelet count 108.000. She is well sedated with propofol and she is calm and comfortable. Adequate urine output. No other significant events otherwise postop. She has a right Ashford-Jane catheter. The chest x-ray shows all of the chest tubes are in place. The patient is a right pleural and left pleural and 2 mediastinal chest tubes. Review of Systems ROS unobtainable: due to endotracheal tube Past Medical History Past Medical History: Coronary Artery Disease (CAD), Cancer, Hyperlipidemia, Hypertension, Osteoarthritis (OA) Additional Past Medical History / Comment(s): CAD, ascending aortic aneurysm, severe aortic regurgitation, uterine cancer, History of Any Multi-Drug Resistant Organisms: None Reported Past Surgical History: Adenoidectomy, Bladder Surgery, Cholecystectomy, Heart Catheterization, Hysterectomy, Orthopedic Surgery, Tonsillectomy Additional Past Surgical History / Comment(s): bladder suspension, knee arthroscopy-desmond, desmond cataracts, 06-05-16 rt hip hemiarthroplasty Past Anesthesia/Blood Transfusion Reactions: No Reported Reaction Past Psychological History: Anxiety Additional Psychological History / Comment(s): pt is living with son jose Smoking Status: Never smoker Past Alcohol Use History: Occasional Past Drug Use History: None Reported - Past Family History Mother Family Medical History: Osteoarthritis (OA) Additional Family Medical History / Comment(s): low bp Father Family Medical History: Hypertension Additional Family Medical History / Comment(s): enlarged heart Daughter(s) Family Medical History: Myocardial Infarction ([place]) Medications and Allergies Home Medications Medication Instructions Recorded Confirmed Type Diltiazem HCl [Cardizem] 120 mg PO DAILY 05/25/14 05/24/19 History HYDROcodone/APAP 5-325MG [[place] 1 tab PO QID 05/25/14 05/24/19 History 5-325] Multivitamins, Thera [Multivitamin 1 tab PO DAILY 06/02/15 05/24/19 History (formulary)] Aspirin [Adult Low Dose Aspirin EC] 81 mg PO DAILY 04/02/19 06/01/19 History Nitroglycerin Sl Tabs [Nitrostat] 0.4 mg SUBLINGUAL Q5M PRN 04/02/19 05/24/19 History Sertraline HCl [Zoloft] 50 mg PO DAILY 04/02/19 05/24/19 History Turmeric Root Extract [Turmeric] 500 mg PO BID 04/02/19 05/24/19 History Lisinopril [Zestril] 5 mg PO DAILY #90 tab 04/05/19 05/24/19 Rx Calcium Carbonate/Vitamin D3 2 each PO DAILY 05/24/19 05/24/19 History [Calcium 600-Vit D3 800 Caplet] Mupirocin 2% Oint [Bactroban 2% 1 applic NASAL BID 05/24/19 05/24/19 History Oint] Simvastatin [Zocor] 10 mg PO HS 05/24/19 05/24/19 History Allergies Allergy/AdvReac Type Severity Reaction Status Date / Time bee venom protein (honey bee) Allergy Swelling Verified 05/24/19 14:15 sulfamethoxazole Allergy Rash/Hives Verified 05/24/19 14:15 [From Bactrim] trimethoprim [From Bactrim] Allergy Rash/Hives Verified 05/24/19 14:15 Physical Exam Vitals: Vital Signs Temp Pulse Pulse Resp BP BP BP 06/01/19 18:33 35.9 F L 80 12 101/46 06/01/19 18:30 80 12 06/01/19 18:23 35.9 F L 80 12 100/46 06/01/19 18:17 35.7 F L 80 12 99/45 06/01/19 18:15 80 12 06/01/19 18:00 80 12 06/01/19 17:45 118 H 12 06/01/19 17:30 80 12 06/01/19 17:15 97 18 06/01/19 06:08 98.8 F 72 20 155/80 166/92 Pulse Ox 06/01/19 18:33 96 06/01/19 18:30 96 06/01/19 18:23 96 06/01/19 18:17 92 L 06/01/19 18:15 96 06/01/19 18:00 95 06/01/19 17:45 95 06/01/19 17:30 98 06/01/19 17:15 98 06/01/19 06:08 96 Intake and Output 06/01/19 06/01/19 06/01/19 06:59 14:59 22:59 Intake Total 100 1843 1837.961 Output Total 2400 Balance 100 1843 -562.039 Intake: IV 100 32 Intake, IV Titration 1.961 Amount Clevidipine Butyrate 25 0.067 mg In Empty Bag 1 bag @ 1 MG/HR 2 mls/hr IV .Q24H DENISE Rx#:[id number] Insulin Regular 100 unit 1.894 In Sodium Chloride 0.9% 100 ml @ Per Protocol IV .Q0M DENISE Rx#:[id number] Blood Product 1811 1836 Ffp 24 Cpd Unit 315 [id number] Ffp 24 Cpd Unit 299 [id number] Ffp 24 Cpd Unit 285 [id number] Ffp 24 Cpd Unit 0 299 [id number] Ffp 24 Cpd Unit 317 [id number] Ffp 24 Cpd Unit 320 [id number] Platelet Irr Pheresis 0 Acda1 Unit [id number] Platelet Irr Pheresis 317 Acda1 Unit [id number] Platelet Pheresis Acda1 316 Unit [id number] Platelet Pheresis Acda1 244 Unit [id number] Platelet Pheresis Acda2 315 Unit [id number] Rc As-1 Unit 0 310 [id number] Rc As-3 Unit 310 [id number] Output: Urine 200 Estimated Blood Loss 2200 Other: Weight 58.5 kg ABP, PAP, CO, CI - Last 8 Hours Arterial Blood Pressure 101/46 Arterial Blood Pressure 100/46 Arterial Blood Pressure 111/51 Arterial Blood Pressure 100/47 Arterial Blood Pressure 100/48 Arterial Blood Pressure 100/46 Pulmonary Artery Pressure 26/15 Pulmonary Artery Pressure 25/14 Pulmonary Artery Pressure 27/15 Pulmonary Artery Pressure 25/14 Pulmonary Artery Pressure 25/14 Pulmonary Artery Pressure 26/17 Cardiac Output 3.7 Cardiac Output 4.4 Cardiac Index 2.4 Cardiac Index 2.8 Gen. appearance sedated, comfortable likely distress intubated on mechanical ventilator. Head exam was generally normal. There was no scleral icterus or corneal arcus. Mucous membranes were moist. Neck was supple and without jugular venous distension, thyromegaly, or carotid bruits. Carotids were easily palpable bilaterally. There was no adenopathy. The patient has a right IJ Ashford-Jane catheter in place. Cordis in place. No significant JVDs. Lungs sounds are diminished bilaterally and the patient has right pleural chest tube in the left pleural chest tube and 2 mediastinal chest tubes. Sternum stable clean and intact. Heart sounds are regular, the rhythm is paced at the rate of 80. No significant murmurs or rubs appreciated on today's examination. Abdominal exam revealed normal bowel sounds. The abdomen was soft, non-tender, and without masses, organomegaly, or appreciable enlargement of the abdominal aorta. Extremities are cold yet there is adequate pulses bilaterally. No cyanosis. No clubbing. Neurologic to the patient sedated and she is quite sedated since the mechanical ventilator. Pupils are equal and reactive to light. Sensory and motor functions cannot be accurately assessed on today's evaluation. Examination of the skin revealed no evidence of significant rashes, suspicious appearing nevi or other concerning lesions. Results - Laboratory Findings CBC and BMP: 06/01/19 16:15 06/01/19 16:15 ABG ABG pH 7.35 (7.35-7.45) 06/01/19 17:38 ABG pCO2 54 mmHg (35-45) H 06/01/19 17:38 ABG pO2 212 mmHg (83-108) H 06/01/19 17:38 ABG O2 Saturation 99.5 % (94-97) H 06/01/19 17:38 PT/INR, D-dimer PT 11.3 sec (9.0-12.0) 06/01/19 16:15 INR 1.1 (<1.2) 06/01/19 16:15 Abnormal lab findings: Abnormal Labs 05/28/19 06/01/19 06/01/19 11:10 06:18 08:45 RBC Hgb Hct Plt Count Lymphocytes # ABG pH ABG pCO2 ABG pO2 225 H ABG HCO3 28 H ABG Total CO2 29 H ABG O2 Saturation 99.9 H ABG Hematocrit ABG Sodium ABG Ionized Calcium ABG Glucose ABG Lactic Acid Hemoglobin 11.3 L Chloride Carbon Dioxide Creatinine Glucose POC Glucose (mg/dL) 104 H Calcium Ionized Calcium Marcela Magnesium AST Total Protein Albumin Arterial Blood Glucose Crossmatch See Detail 06/01/19 06/01/19 06/01/19 10:26 10:55 11:25 RBC Hgb Hct Plt Count Lymphocytes # ABG pH ABG pCO2 ABG pO2 267 H >420 H >420 H ABG HCO3 27 H ABG Total CO2 28 H 25 H ABG O2 Saturation 99.8 H 100.0 H 100.0 H ABG Hematocrit 31 L 21 L 22 L ABG Sodium 134 L ABG Ionized Calcium 3.9 L 4.4 L ABG Glucose 116 H 117 H 113 H ABG Lactic Acid Hemoglobin 10.2 L 7.0 L* 7.2 L Chloride Carbon Dioxide Creatinine Glucose POC Glucose (mg/dL) Calcium Ionized Calcium Marcela Magnesium AST Total Protein Albumin Arterial Blood Glucose 116 H 117 H 113 H Crossmatch 06/01/19 06/01/19 06/01/19 12:13 12:47 15:55 RBC 2.65 L Hgb 8.2 L D Hct 24.0 L Plt Count 122 L Lymphocytes # 0.2 L ABG pH 7.26 L 7.26 L ABG pCO2 54 H 58 H ABG pO2 371 H >420 H ABG HCO3 26 H ABG Total CO2 26 H 28 H ABG O2 Saturation 99.8 H 99.9 H ABG Hematocrit 24 L 22 L ABG Sodium ABG Ionized Calcium 4.3 L 4.4 L ABG Glucose 129 H 172 H ABG Lactic Acid 2.2 H* Hemoglobin 7.7 L 7.2 L Chloride Carbon Dioxide Creatinine Glucose POC Glucose (mg/dL) Calcium Ionized Calcium Marcela Magnesium AST Total Protein Albumin Arterial Blood Glucose 129 H 172 H Crossmatch 06/01/19 06/01/19 06/01/19 16:15 16:15 17:16 RBC 2.64 L Hgb 8.0 L Hct 23.9 L Plt Count 108 L Lymphocytes # 0.3 L ABG pH ABG pCO2 ABG pO2 ABG HCO3 ABG Total CO2 ABG O2 Saturation ABG Hematocrit ABG Sodium ABG Ionized Calcium ABG Glucose ABG Lactic Acid Hemoglobin Chloride 108 H Carbon Dioxide 31 H Creatinine 0.49 L Glucose 154 H POC Glucose (mg/dL) 171 H Calcium 7.4 L Ionized Calcium Marcela 4.3 L Magnesium 3.0 H AST 42 H Total Protein 4.7 L Albumin 2.7 L Arterial Blood Glucose Crossmatch 06/01/19 06/01/19 17:38 18:04 RBC Hgb Hct Plt Count Lymphocytes # ABG pH ABG pCO2 54 H ABG pO2 212 H ABG HCO3 30 H ABG Total CO2 31 H ABG O2 Saturation 99.5 H ABG Hematocrit ABG Sodium ABG Ionized Calcium ABG Glucose ABG Lactic Acid Hemoglobin Chloride Carbon Dioxide Creatinine Glucose POC Glucose (mg/dL) 180 H Calcium Ionized Calcium Marcela Magnesium AST Total Protein Albumin Arterial Blood Glucose Crossmatch - Diagnostic Findings Chest x-ray: image reviewed Assessment and Plan Plan: 1 replacement of ascending aorta with a malik-arch reconstruction, aortic valve replacement with a bovine recovered a prosthesis and coronary artery bypass 1 with CORRALES to LAD and left atrial appendage clipping along with an anterior mediastinal lymph node biopsy. The patient is postop day #0 2 severe aortic regurgitation with a ascending aortic aneurysm and coronary artery disease 3 post thoracotomy and the patient is currently intubated on a mechanical ventilator, and expected outcome of cardiac surgery 4 hypertension currently on clevidipine drip for blood pressure control 5 anemia, due to intraoperative blood loss, expected outcome surgery and the patient was transfused with a total of 2 units of packed RBC 6 coagulopathy post transfusion with a 6 units of fresh frozen plasma 7 chronic anxiety 8 osteoarthritis Plan Continue vent support in the necessary vent changes were done No weaning efforts for tonight. Will monitor hemodynamics and if things remain stable we'll start weaning as of tomorrow morning Monitor the output from the chest tube Monitor hemoglobin Monitor hemodynamics Clevidipine for blood pressure control Keep the cardiac rhythm paced underlying rhythm was asystole Keep the patient sedated with propofol We'll continue to follow. Time with Patient: Greater than 30
[2019-06-01] MEDS: PROPOFOL 1,000 MG in EMPTY BAG 1 BAG IV SCH ×2 (19:30→23:44)
[2019-06-01 19:35] LABS: Glucose,Whole Blood 157 mg/dL (75-99)
[2019-06-01] MEDS ORDERED: IPRATROPIUM-ALBUTEROL 3 ML NEB INHALATION SCH (20:00)
[2019-06-01] MEDS: ACETAMINOPHEN IV (For NPO) 1,000 MG in EMPTY BAG 1 BAG IVPB SCH ×2 (20:02→23:49)
[2019-06-01 20:21] LABS: Glucose,Whole Blood 150 mg/dL (75-99)
[2019-06-01] MEDS: POTASSIUM CHLORIDE 10 MEQ in WATER FOR INJECTION 1 100ML.BAG IVPB SCH ×2 (20:23→22:33)
[2019-06-01] MEDS ORDERED: MUPIROCIN 2% OINT 22 GM TUBE NASAL ONE (20:45)
[2019-06-01 20:46] LABS: Basophils % (A) 0 %; Eosinophils % (A) 0 %; HCT 26.6 % (34.0-46.0); Lymphocytes # (A) 0.3 k/uL (1.0-4.8); Lymphocytes % (A) 4 %; MCH 30.8 pg (25.0-35.0); MCHC 33.9 g/dL (31.0-37.0); Monocytes # (A) 0.3 k/uL (0-1.0); Monocytes % (A) 4 %; Neutrophils # (A) 7.2 k/uL (1.3-7.7); Neutrophils % (A) 91 %; Platelet Count 216 k/uL (150-450); RBC 2.92 m/uL (3.80-5.40); RDW 13.5 % (11.5-15.5); WBC 7.9 k/uL (3.8-10.6)
[2019-06-01 21:14] LABS: Glucose,Whole Blood 131 mg/dL (75-99)
[2019-06-01 22:03] LABS: ABG Base Excess 4.5 mmol/L; ABG HCO3 28 mmol/L (21-25); ABG Oxygen Saturation 97.9 % (94-97); ABG PCO2 40 mmHg (35-45); ABG PH 7.46 (7.35-7.45); ABG PO2 84 mmHg (83-108); ABG TCO2 30 mmol/L (19-24); Allen Test Performed? Yes
[2019-06-01] MEDS: IPRATROPIUM-ALBUTEROL 3 ML NEB INHALATION SCH (22:28)
[2019-06-01 22:44] LABS: Glucose,Whole Blood 97 mg/dL (75-99)
[2019-06-01] MEDS: IPRATROPIUM-ALBUTEROL 3 ML NEB INHALATION PRN (23:07)
[2019-06-01 23:48] LABS: Glucose,Whole Blood 125 mg/dL (75-99)
[2019-06-02] MEDS ORDERED: HEPARIN SODIUM,PORCINE 5,000 UNIT/ML 1 ML VIAL SQ SCH (00:29)
[2019-06-02 00:40] LABS: Glucose,Whole Blood 138 mg/dL (75-99)
[2019-06-02] MEDS: CHLORHEXIDINE GLUCONATE 15 ML CUP MUCOUS MEM ONE (00:47)
[2019-06-02 01:46] LABS: Glucose,Whole Blood 124 mg/dL (75-99)
[2019-06-02] MEDS: CHLORHEXIDINE GLUCONATE 15 ML CUP MUCOUS MEM SCH ×2 (01:53→08:56)
[2019-06-02 02:35] LABS: Glucose,Whole Blood 120 mg/dL (75-99)
[2019-06-02] MEDS: IPRATROPIUM-ALBUTEROL 3 ML NEB INHALATION PRN (03:08)
[2019-06-02 04:02] LABS: Glucose,Whole Blood 81 mg/dL (75-99)
[2019-06-02 04:16] LABS: Ionized Calcium 4.8 mg/dL (4.5-5.3)
[2019-06-02 04:26] LABS: Basophils % (A) 0 %; Eosinophils % (A) 0 %; Lymphocytes # (A) 0.4 k/uL (1.0-4.8); Lymphocytes % (A) 6 %; MCH 29.9 pg (25.0-35.0); MCHC 33.4 g/dL (31.0-37.0); MCV 89.7 fL (80.0-100.0); Mean Platelet Volume 9.1; Monocytes # (A) 0.3 k/uL (0-1.0); Monocytes % (A) 6 %; Neutrophils # (A) 5.1 k/uL (1.3-7.7); Neutrophils % (A) 86 %; Platelet Count 133 k/uL (150-450); RBC 2.15 m/uL (3.80-5.40); RDW 13.4 % (11.5-15.5); WBC 5.9 k/uL (3.8-10.6)
[2019-06-02] MEDS ORDERED: HYDROcodone/APAP 5-325MG 1 EACH TAB PO PRN (04:28)
[2019-06-02 04:31] LABS: ALT 21 U/L (4-34); AST 50 U/L (14-36); African American GFR (CKD) >90 (>60 ml/min/1.73 sqM); Albumin 3.1 g/dL (3.5-5.0); Alkaline Phosphatase 39 U/L (38-126); Anion Gap 4 mmol/L; Blood Urea Nitrogen 13 mg/dL (7-17); Calcium 8.5 mg/dL (8.4-10.2); Carbon Dioxide 29 mmol/L (22-30); Chloride 107 mmol/L (98-107); Glucose 74 mg/dL (74-99); Magnesium 2.5 mg/dL (1.6-2.3); Non-African American GFR(CKD) 85 (>60 ml/min/1.73 sqM); Potassium 3.6 mmol/L (3.5-5.1); Sodium 140 mmol/L (137-145); Total Bilirubin 0.6 mg/dL (0.2-1.3); Total Protein 5.2 g/dL (6.3-8.2)
[2019-06-02 04:37] LABS: HGB 6.4 gm/dL (11.4-16.0)
[2019-06-02 04:38] LABS: HCT 19.3 % (34.0-46.0)
[2019-06-02] MEDS ORDERED: Potassium Replacement Protocol 1 EACH MISC MISCELLANE PRN (04:39)
[2019-06-02] MEDS: POTASSIUM CHLORIDE 10 MEQ in WATER FOR INJECTION 1 100ML.BAG IVPB SCH ×2 (04:57→06:15)
[2019-06-02 05:03] LABS: ABG Base Excess 5.6 mmol/L; ABG HCO3 29 mmol/L (21-25); ABG Oxygen Saturation 99.3 % (94-97); ABG PCO2 36 mmHg (35-45); ABG PH 7.51 (7.35-7.45); ABG PO2 139 mmHg (83-108); ABG TCO2 30 mmol/L (19-24); Allen Test Performed? Yes
[2019-06-02 05:24] LABS: Glucose,Whole Blood 129 mg/dL (75-99)
[2019-06-02] MEDS: CLEVIDIPINE BUTYRATE 25 MG in EMPTY BAG 1 BAG IV SCH ×3 (05:25→14:37)
[2019-06-02 06:27] LABS: Glucose,Whole Blood 115 mg/dL (75-99)
[2019-06-02] MEDS: IPRATROPIUM-ALBUTEROL 3 ML NEB INHALATION SCH ×4 (07:04→20:23)
[2019-06-02 07:31] LABS: Glucose,Whole Blood 106 mg/dL (75-99)
--- NOTE | 2019-06-02 07:58 | CONS ---
CONSULTATION DATE OF SERVICE: 05/31/2018 REASON FOR CONSULTATION: Advice regarding hypertension and multiple other medical issues requested by Dr. Mcduffie. HISTORY OF PRESENT ILLNESS: This 83-year-old woman with a past medical history of multiple medical problems including history of CAD, history of hypertension, history of hyperlipidemia, DJD, history of ascending aortic aneurysm, history of severe aortic regurgitation, history of adenoidectomy, history of bladder surgery, cholecystectomy being followed by Dr. Mcgarry in the outpatient setting underwent placement of ascending aorta graft and as well as a malik arch reconstruction under circulatory arrest and replacement aortic valve with bovine pericardial prosthesis and CABG x1 to CORRALES to LAD. The patient is being closely monitored in ICU. Patient is on mechanical ventilation, multiple drips including Cleviprex. The patient has also insulin drip at . Sugars are running at around 150. The patient unable to give coherent history, most of the history is taken from my discussion with staff and review of chart at this time. PAST MEDICAL HISTORY: History of CAD, history of hypertension, hyperlipidemia, DJD, history of ascending aortic aneurysm, adenoidectomy, bladder surgery. MEDICATIONS: Medications prior to admission and home medications are: 1. Aspirin 81 mg p.o. daily. 2. Zocor 10 mg at bedtime. 3. Calcium with vitamin D two tablets p.o. daily. 5. Tumeric. 6. Zoloft 50 mg daily. 7. Nitrostat. 8. Multivitamins one p.o. daily. 9. Zestril 5 mg p.o. daily. 10.[place] 5 mg q.i.d. 11.Cardizem 120 mg p.o. daily. ALLERGIES: Allergies are BEE VENOM, SULFAMETHOXAZOLE and BACTRIM. FAMILY HISTORY: History of DJD, low blood pressure per chart. SOCIAL HISTORY: History of smoking. Occasional alcohol per chart. REVIEW OF SYSTEMS: Could not be taken. PHYSICAL EXAMINATION: Patient is mechanically intubated. Pulse is 80, blood pressure 97/44, respiration 20, temperature 98.2, pulse ox 94% on 60% FiO2. Vent settings are noted. HEENT: Conjunctivae normal. Oral mucosa moist. NECK: No jugular venous distention. CARDIOVASCULAR: S1, S2 muffled. RESPIRATORY: Breath sounds diminished at the bases. A few rhonchi. ABDOMEN: Soft. NERVOUS SYSTEM: Patient mechanically sedated. LABS: Labs are WBC 7.9, hemoglobin is 9, otherwise glucose 150, 131. The sodium 141, potassium 3.7. Glucose 131. Albumin is 2.7. AST is 42. ASSESSMENT: 1. Status post replacement ascending aorta with graft with distal malik arch reconstruction and as well as aortic valve replacement with bovine pericardial prosthesis and coronary artery bypass grafting x1 with CORRALES to LAD. 2. Anemia, normocytic, as expected. 3. Elevated blood sugars, on insulin drip. 4. History of coronary artery disease. 5. Hypertension. 6. Hyperlipidemia. 7. History of degenerative joint disease. 8. History of ascending aortic aneurysm and severe aortic regurgitation. 9. History of uterine cancer. 10.History of anxiety. 11.FULL CODE. RECOMMENDATION AND DISCUSSION: This 83-year-old woman who presented with multiple medical issues, at this time I recommend to continue current medications, continue insulin drip, monitor blood sugars closely. Otherwise, the patient is also seen by Dr. Norton vent management, DVT prophylaxis. The rest of the recommendations per Cardiothoracic Surgery. We will follow the patient closely. Further recommendations to follow. A copy of dictation forwarded to Dr. Mcgarry who is the primary physician. MMODL / IJN: [id number] / [email or web address]
[2019-06-02] MEDS: PROPOFOL 1,000 MG in EMPTY BAG 1 BAG IV SCH (08:00)
--- NOTE | 2019-06-02 08:21 | XR ---
EXAMINATION TYPE: XR chest 1V portable DATE OF EXAM: 06/02/2019 COMPARISON: 06/01/2019 HISTORY: Status post cardiac surgery. Follow-up exam. TECHNIQUE: Single frontal view of the chest is obtained. FINDINGS: [place]-Jane catheter terminates in the pulmonary outflow tract. Mediastinal drains, and bila teral thoracostomy tubes are similar in position. Endotracheal tube has been retracted and now termin ates at the level aortic arch appropriately placed. Enteric tube terminates just above the gastroesop hageal junction and should be advanced at least 3 cm for optimal placement. Subcutaneous emphysema of the chest antunez is redemonstrated. No sizable residual pneumothorax. Scattered areas of atelectasis are seen throughout the lungs. Diffuse osseous demineralization. Post surgical changes of the chest w ith median sternotomy wires. IMPRESSION: Overall stable exam from 05/31/2010 other than retraction of the endotracheal tube, now a ppropriately placed and slightly cephalad enteric tube that should be advanced [address] ment.
[2019-06-02] MEDS: ATORVASTATIN 40 MG TAB PO SCH (08:22)
[2019-06-02] MEDS: METOPROLOL TARTRATE 12.5 MG TAB PO SCH ×2 (08:25→20:11)
[2019-06-02] MEDS: MULTIVITAMINS, THERA 1 EACH TAB PO SCH (08:25)
[2019-06-02] MEDS: SERTRALINE 50 MG TAB PO SCH (08:26)
[2019-06-02 08:39] LABS: Glucose,Whole Blood 121 mg/dL (75-99)
[2019-06-02] MEDS: HEPARIN SODIUM,PORCINE 5,000 UNIT/ML 1 ML VIAL SQ SCH ×2 (08:41→16:37)
[2019-06-02] MEDS ORDERED: BISACODYL 10 MG SUPP RECTAL PRN (09:00)
[2019-06-02] MEDS ORDERED: ASPIRIN 325 MG TAB PO SCH (09:00)
[2019-06-02] MEDS ORDERED: PANTOPRAZOLE 40 MG/10 ML VIAL IVP SCH (09:00)
[2019-06-02] MEDS ORDERED: MAGNESIUM HYDROXIDE 2,400 MG/10 ML CUP PO PRN (09:00)
[2019-06-02 09:24] LABS: Glucose,Whole Blood 123 mg/dL (75-99)
--- NOTE | 2019-06-02 09:41 | P.PN ---
Subjective Progress Note Date: 06/02/19 83-year-old female who presented with shortness of breath. She underwent cardiac catheterization. This demonstrated moderate coronary artery disease in the right and LAD systems. There was a markedly dilated ascending aorta. There was 3-4+ aortic valvular insufficiency. Patient underwent a CAT scan demonstrating 5.6 cm ascending aortic aneurysm extending from the sinotubular junction into the arch. There was significant calcification of the distal ascending and arch aorta. Elective surgery was scheduled. The patient was brought into the operating room today and intraoperatively the patient was found to have The ascending aorta was markedly dilated. There was significant calcification of the distal ascending and arch aorta. The dilatation extended all the way to the proximal arch. There was a Bovie arch with common takeoff of the innominate artery and left carotid arteries. The arch distal to the takeoff of the Bovie arch was relatively normal. Aortic valve was tricuspid and minimally calcified. LAD had proximal calcifications. The CORRALES was a good conduit. There were enlarged anthracotic lymph nodes overlying the innominate artery. Based on this, the patient underwent a Replacement of ascending aorta with a 32 mm Gelweave tube graft with distal malik-arch reconstruction under circulatory arrest, replacement of aortic valve with 23 mm Avalus bovine pericardial prosthesis, CABG 1 with CORRALES to LAD, exclusion of the left atrial appendage with application of a 35 mm AtriCure clip, epi-aortic ultrasound, anterior mediastinal lymph node biopsy. The patient is currently postop in the intensive care unit. Intraoperatively the patient received a total of 6 units of fresh frozen plasma and 2 units of packed RBC. Currently I have him on assist control mode of ventilation. I put him on a rate of 20 with a tidal volume of 400 and FiO2 of 60% with a PEEP of 8. Cardiac output is 4.4 with an index of 2.4. PA pressures are 2514. He is on clevidipine drip for blood pressure control which is running at 4 mg an hour. He is well sedated with propofol. He is currently paced at the rate of 80. Producing urine output adequately. He has 2 mediastinal chest tubes and 2 pleural chest tube. Output from the mediastinal chest tube is been 600 mL and output from the left/right chest has been 60 mL. She is currently receiving platelets. Insulin drip at 4 units per hour.. Lactated ringer's at 50 mls per hour. Pacemaker wires in place. DDD. Currently A pacing V sensing. Mean arterial pressure 75. White count 4.7. Hemoglobin 8.0. Platelet count 108.000. She is well sedated with propofol and she is calm and comfortable. Adequate urine output. No other significant events otherwise postop. She has a right [place]Jane catheter. The chest x-ray shows all of the chest tubes are in place. The patient is a right pleural and left pleural and 2 mediastinal chest tubes. On today's evaluation of 06/02/2019 the patient is doing well. She is hemodynamically stable. She is still intubated on a mechanical ventilator. Blood gases from this morning showed a component of mild metabolic and respiratory alkalosis. PH was 7.5 with a pCO2 of 36 and pO2 of 139. I dropped a respiratory rate down to 14. She was started tidal volume of 400 with an FiO2 of 50% and a PEEP of 5. Chest x-ray from today shows no major abnormalities. Chest tubes are all in a good location. She is producing adequate amount of urine output. Cardiac index is 2.5 with a pulmonary artery pressure 20/70. The output from the chest tube has been in the order of 20-30 mL an hour from the pleural and mediastinal chest tubes. Her hemoglobin today is at 6.4 and she got a unit of blood transfusion. For now, we are the process of weaning suspicion of the mechanical ventilator. Her weaning parameters showed a bottle Of 488, R SBI of 59, minute ventilation of 7 L. The patient is currently on a pressure support of 5 and a PEEP of 5 and she is able to generate tidal volumes of about 400 with a respiratory rate of 15. As such, she may be potentially extubated today. No other significant events overnight. She is off the pacemaker sensing rhythm is sinus rhythm in the low 60s. Objective - Vital Signs Vital signs: Vital Signs Temp 37.9 F L 06/02/19 08:00 Pulse 69 06/02/19 09:00 Resp 20 06/02/19 09:00 BP 85/60 06/02/19 08:15 Pulse Ox 97 06/02/19 09:00 Intake & Output 06/01/19 06/02/19 06/02/19 18:59 06:59 18:59 Intake Total 3821.961 3772.616 471.270 Output Total 3530 3008 450 Balance 291.961 764.616 21.270 Weight 70.7 kg Intake: IV 173.0 1769.5 248.5 ACETAMINOPHEN IV (For NPO 100 ) 1,000 mg In Empty Bag 1 bag @ 400 mls/hr IVPB Q6HR DENISE Rx#:[id number] Albumin Human 5% 250 ml 250 In Empty Bag 1 bag @ 250 mls/hr IVPB Q1HR PRN Rx#: [id number] Calcium Gluconate 2 gm In 100 Sodium Chloride 0.9% 100 ml @ 100 mls/hr IVPB ONCE PRN Rx#:[id number] Cardiac Output 20 210 20 Lactated Ringers 1,000 ml 100 600 150 @ 20 mls/hr IV .Q24H DENISE Rx#:[id number] Nitroglycerin-D5w Pmx 50 3.0 1.5 1.5 mg In Dextrose/Water 1 250ml.bag @ 5 MCG/MIN 1.5 mls/hr IV .Q24H DENISE Rx#: [id number] Potassium Chloride 10 meq 400 In Water For Injection 1 100ml.bag @ 100 mls/hr IVPB Q1H DENISE Rx#: [id number] Pressure Bags 18 108 27 ceFAZolin 2 gm In Sodium 50 Chloride 0.9% 50 ml @ 100 mls/hr IVPB Q8HR DENISE Rx# :[id number] Intake, IV Titration 1.961 176.116 162.770 Amount Clevidipine Butyrate 25 0.067 89.149 45.600 mg In Empty Bag 1 bag @ 1 MG/HR 2 mls/hr IV .Q24H DENISE Rx#:[id number] Insulin Regular 100 unit 1.894 27.531 1.616 In Sodium Chloride 0.9% 100 ml @ Per Protocol IV .Q0M DENISE Rx#:[id number] Propofol 1,000 mg In 59.436 115.554 Empty Bag 1 bag @ Titrate IV .Q0M DENISE Rx#: [id number] Blood Product 3646 7017 Ffp 24 Cpd Unit 315 [id number] Ffp 24 Cpd Unit 299 [id number] Ffp 24 Cpd Unit 285 [id number] Ffp 24 Cpd Unit 311 [id number] Ffp 24 Cpd Unit 314 [id number] Ffp 24 Cpd Unit 299 [id number] Ffp 24 Cpd Unit 317 [id number] Ffp 24 Cpd Unit 320 [id number] Platelet Irr Pheresis 0 268 Acda1 Unit [id number] Platelet Irr Pheresis 317 Acda1 Unit [id number] Platelet Pheresis Acda1 316 Unit [id number] Platelet Pheresis Acda1 244 Unit [id number] Platelet Pheresis Acda2 315 Unit [id number] Rc As-1 Unit 310 [id number] Rc As-3 Unit 310 [id number] Rc Pheresis 2 As3 Unit 0 [id number] Other 60 Output: Chest Tube Drainage 755 963 140 Bilateral Lateral Chest 55 373 60 Bilateral Mediastinal 700 590 80 Urine 575 2045 310 Estimated Blood Loss 2200 Other: Voiding Method Indwelling Catheter Indwelling Catheter Indwelling Catheter ABP, PAP, CO, CI - Last Documented Arterial Blood Pressure 115/40 Pulmonary Artery Pressure 23/10 Cardiac Output 5.4 Cardiac Index 3.5 - Exam Gen. appearance sedated, comfortable likely distress intubated on mechanical ventilator. The patient is awake and alert and the patient is coming off s edation. Head exam was generally normal. There was no scleral icterus or corneal arcus. Mucous membranes were moist. Neck was supple and without jugular venous distension, thyromegaly, or carotid bruits. Carotids were easily palpable bilaterally. There was no adenopathy. The patient has a right IJ [place]Jane catheter in place. Cordis in place. No significant JVDs. Lungs sounds are diminished bilaterally and the patient has right pleural chest tube in the left pleural chest tube and 2 mediastinal chest tubes. Sternum stable clean and intact. Heart sounds are regular, the rhythm is paced at the rate of 80. No significant murmurs or rubs appreciated on today's examination. Abdominal exam revealed normal bowel sounds. The abdomen was soft, non-tender, and without masses, organomegaly, or appreciable enlargement of the abdominal aorta. Extremities are cold yet there is adequate pulses bilaterally. No cyanosis. No clubbing. Neurologic awake and alert and following commands and answering questions appropriately while being on a mechanical ventilated and while being given a sedation holiday.. Examination of the skin revealed no evidence of significant rashes, suspicious appearing nevi or other concerning lesions. - Labs CBC & Chem 7: 06/02/19 04:00 06/02/19 04:00 Labs: Abnormal Lab Results - Last 24 Hours (Table) 05/28/19 06/01/19 06/01/19 Range/Units 11:10 08:45 10:26 RBC (3.80-5.40) m/uL Hgb (11.4-16.0) gm/dL Hct (34.0-46.0) % Plt Count (150-450) k/uL Lymphocytes # (1.0-4.8) k/uL ABG pH (7.35-7.45) ABG pCO2 (35-45) mmHg ABG pO2 225 H 267 H (83-108) mmHg ABG HCO3 28 H 27 H (21-25) mmol/L ABG Total CO2 29 H 28 H (19-24) mmol/L ABG O2 Saturation 99.9 H 99.8 H (94-97) % ABG Hematocrit 31 L (34.0-46.0) % ABG Sodium (135-146) mmol/L ABG Ionized Calcium (4.5-5.3) mg/dL ABG Glucose 116 H (75-99) mg/dL ABG Lactic Acid (0.5-1.6) mmol/L Hemoglobin 11.3 L 10.2 L (11.4-16.0) gm/dL Chloride (98-107) mmol/L Carbon Dioxide (22-30) mmol/L Creatinine (0.52-1.04) mg/dL Glucose (74-99) mg/dL POC Glucose (mg/dL) (75-99) mg/dL Calcium (8.4-10.2) mg/dL Ionized Calcium Marcela (4.5-5.3) mg/dL Magnesium (1.6-2.3) mg/dL AST (14-36) U/L Total Protein (6.3-8.2) g/dL Albumin (3.5-5.0) g/dL Arterial Blood Glucose 116 H (75-99) mg/dL Crossmatch See Detail 06/01/19 06/01/19 06/01/19 Range/Units 10:55 11:25 12:13 RBC (3.80-5.40) m/uL Hgb (11.4-16.0) gm/dL Hct (34.0-46.0) % Plt Count (150-450) k/uL Lymphocytes # (1.0-4.8) k/uL ABG pH 7.26 L (7.35-7.45) ABG pCO2 54 H (35-45) mmHg ABG pO2 >420 H >420 H 371 H (83-108) mmHg ABG HCO3 (21-25) mmol/L ABG Total CO2 25 H 26 H (19-24) mmol/L ABG O2 Saturation 100.0 H 100.0 H 99.8 H (94-97) % ABG Hematocrit 21 L 22 L 24 L (34.0-46.0) % ABG Sodium 134 L (135-146) mmol/L ABG Ionized Calcium 3.9 L 4.4 L 4.3 L (4.5-5.3) mg/dL ABG Glucose 117 H 113 H 129 H (75-99) mg/dL ABG Lactic Acid (0.5-1.6) mmol/L Hemoglobin 7.0 L* 7.2 L 7.7 L (11.4-16.0) gm/dL Chloride (98-107) mmol/L Carbon Dioxide (22-30) mmol/L Creatinine (0.52-1.04) mg/dL Glucose (74-99) mg/dL POC Glucose (mg/dL) (75-99) mg/dL Calcium (8.4-10.2) mg/dL Ionized Calcium Marcela (4.5-5.3) mg/dL Magnesium (1.6-2.3) mg/dL AST (14-36) U/L Total Protein (6.3-8.2) g/dL Albumin (3.5-5.0) g/dL Arterial Blood Glucose 117 H 113 H 129 H (75-99) mg/dL Crossmatch 06/01/19 06/01/19 06/01/19 Range/Units 12:47 15:55 16:15 RBC 2.65 L 2.64 L (3.80-5.40) m/uL Hgb 8.2 L D 8.0 L (11.4-16.0) gm/dL Hct 24.0 L 23.9 L (34.0-46.0) % Plt Count 122 L 108 L (150-450) k/uL Lymphocytes # 0.2 L 0.3 L (1.0-4.8) k/uL ABG pH 7.26 L (7.35-7.45) ABG pCO2 58 H (35-45) mmHg ABG pO2 >420 H (83-108) mmHg ABG HCO3 26 H (21-25) mmol/L ABG Total CO2 28 H (19-24) mmol/L ABG O2 Saturation 99.9 H (94-97) % ABG Hematocrit 22 L (34.0-46.0) % ABG Sodium (135-146) mmol/L ABG Ionized Calcium 4.4 L (4.5-5.3) mg/dL ABG Glucose 172 H (75-99) mg/dL ABG Lactic Acid 2.2 H* (0.5-1.6) mmol/L Hemoglobin 7.2 L (11.4-16.0) gm/dL Chloride (98-107) mmol/L Carbon Dioxide (22-30) mmol/L Creatinine (0.52-1.04) mg/dL Glucose (74-99) mg/dL POC Glucose (mg/dL) (75-99) mg/dL Calcium (8.4-10.2) mg/dL Ionized Calcium Marcela (4.5-5.3) mg/dL Magnesium (1.6-2.3) mg/dL AST (14-36) U/L Total Protein (6.3-8.2) g/dL Albumin (3.5-5.0) g/dL Arterial Blood Glucose 172 H (75-99) mg/dL Crossmatch 06/01/19 06/01/19 06/01/19 Range/Units 16:15 17:16 17:38 RBC (3.80-5.40) m/uL Hgb (11.4-16.0) gm/dL Hct (34.0-46.0) % Plt Count (150-450) k/uL Lymphocytes # (1.0-4.8) k/uL ABG pH (7.35-7.45) ABG pCO2 54 H (35-45) mmHg ABG pO2 212 H (83-108) mmHg ABG HCO3 30 H (21-25) mmol/L ABG Total CO2 31 H (19-24) mmol/L ABG O2 Saturation 99.5 H (94-97) % ABG Hematocrit (34.0-46.0) % ABG Sodium (135-146) mmol/L ABG Ionized Calcium (4.5-5.3) mg/dL ABG Glucose (75-99) mg/dL ABG Lactic Acid (0.5-1.6) mmol/L Hemoglobin (11.4-16.0) gm/dL Chloride 108 H (98-107) mmol/L Carbon Dioxide 31 H (22-30) mmol/L Creatinine 0.49 L (0.52-1.04) mg/dL Glucose 154 H (74-99) mg/dL POC Glucose (mg/dL) 171 H (75-99) mg/dL Calcium 7.4 L (8.4-10.2) mg/dL Ionized Calcium Marcela 4.3 L (4.5-5.3) mg/dL Magnesium 3.0 H (1.6-2.3) mg/dL AST 42 H (14-36) U/L Total Protein 4.7 L (6.3-8.2) g/dL Albumin 2.7 L (3.5-5.0) g/dL Arterial Blood Glucose (75-99) mg/dL Crossmatch 06/01/19 06/01/19 06/01/19 Range/Units 18:04 19:16 19:59 RBC 2.92 L (3.80-5.40) m/uL Hgb 9.0 L (11.4-16.0) gm/dL Hct 26.6 L (34.0-46.0) % Plt Count (150-450) k/uL Lymphocytes # 0.3 L (1.0-4.8) k/uL ABG pH (7.35-7.45) ABG pCO2 (35-45) mmHg ABG pO2 (83-108) mmHg ABG HCO3 (21-25) mmol/L ABG Total CO2 (19-24) mmol/L ABG O2 Saturation (94-97) % ABG Hematocrit (34.0-46.0) % ABG Sodium (135-146) mmol/L ABG Ionized Calcium (4.5-5.3) mg/dL ABG Glucose (75-99) mg/dL ABG Lactic Acid (0.5-1.6) mmol/L Hemoglobin (11.4-16.0) gm/dL Chloride (98-107) mmol/L Carbon Dioxide (22-30) mmol/L Creatinine (0.52-1.04) mg/dL Glucose (74-99) mg/dL POC Glucose (mg/dL) 180 H 157 H (75-99) mg/dL Calcium (8.4-10.2) mg/dL Ionized Calcium Marcela (4.5-5.3) mg/dL Magnesium (1.6-2.3) mg/dL AST (14-36) U/L Total Protein (6.3-8.2) g/dL Albumin (3.5-5.0) g/dL Arterial Blood Glucose (75-99) mg/dL Crossmatch 06/01/19 06/01/19 06/01/19 Range/Units 20:00 21:13 21:59 RBC (3.80-5.40) m/uL Hgb (11.4-16.0) gm/dL Hct (34.0-46.0) % Plt Count (150-450) k/uL Lymphocytes # (1.0-4.8) k/uL ABG pH 7.46 H (7.35-7.45) ABG pCO2 (35-45) mmHg ABG pO2 (83-108) mmHg ABG HCO3 28 H (21-25) mmol/L ABG Total CO2 30 H (19-24) mmol/L ABG O2 Saturation 97.9 H (94-97) % ABG Hematocrit (34.0-46.0) % ABG Sodium (135-146) mmol/L ABG Ionized Calcium (4.5-5.3) mg/dL ABG Glucose (75-99) mg/dL ABG Lactic Acid (0.5-1.6) mmol/L Hemoglobin (11.4-16.0) gm/dL Chloride (98-107) mmol/L Carbon Dioxide (22-30) mmol/L Creatinine (0.52-1.04) mg/dL Glucose (74-99) mg/dL POC Glucose (mg/dL) 150 H 131 H (75-99) mg/dL Calcium (8.4-10.2) mg/dL Ionized Calcium Marcela (4.5-5.3) mg/dL Magnesium (1.6-2.3) mg/dL AST (14-36) U/L Total Protein (6.3-8.2) g/dL Albumin (3.5-5.0) g/dL Arterial Blood Glucose (75-99) mg/dL Crossmatch 06/01/19 06/02/19 06/02/19 Range/Units 23:47 00:38 01:44 RBC (3.80-5.40) m/uL Hgb (11.4-16.0) gm/dL Hct (34.0-46.0) % Plt Count (150-450) k/uL Lymphocytes # (1.0-4.8) k/uL ABG pH (7.35-7.45) ABG pCO2 (35-45) mmHg ABG pO2 (83-108) mmHg ABG HCO3 (21-25) mmol/L ABG Total CO2 (19-24) mmol/L ABG O2 Saturation (94-97) % ABG Hematocrit (34.0-46.0) % ABG Sodium (135-146) mmol/L ABG Ionized Calcium (4.5-5.3) mg/dL ABG Glucose (75-99) mg/dL ABG Lactic Acid (0.5-1.6) mmol/L Hemoglobin (11.4-16.0) gm/dL Chloride (98-107) mmol/L Carbon Dioxide (22-30) mmol/L Creatinine (0.52-1.04) mg/dL Glucose (74-99) mg/dL POC Glucose (mg/dL) 125 H 138 H 124 H (75-99) mg/dL Calcium (8.4-10.2) mg/dL Ionized Calcium Marcela (4.5-5.3) mg/dL Magnesium (1.6-2.3) mg/dL AST (14-36) U/L Total Protein (6.3-8.2) g/dL Albumin (3.5-5.0) g/dL Arterial Blood Glucose (75-99) mg/dL Crossmatch 06/02/19 06/02/19 06/02/19 Range/Units 02:33 04:00 04:00 RBC 2.15 L (3.80-5.40) m/uL Hgb 6.4 L* D (11.4-16.0) gm/dL Hct 19.3 L* (34.0-46.0) % Plt Count 133 L (150-450) k/uL Lymphocytes # 0.4 L (1.0-4.8) k/uL ABG pH (7.35-7.45) ABG pCO2 (35-45) mmHg ABG pO2 (83-108) mmHg ABG HCO3 (21-25) mmol/L ABG Total CO2 (19-24) mmol/L ABG O2 Saturation (94-97) % ABG Hematocrit (34.0-46.0) % ABG Sodium (135-146) mmol/L ABG Ionized Calcium (4.5-5.3) mg/dL ABG Glucose (75-99) mg/dL ABG Lactic Acid (0.5-1.6) mmol/L Hemoglobin (11.4-16.0) gm/dL Chloride (98-107) mmol/L Carbon Dioxide (22-30) mmol/L Creatinine (0.52-1.04) mg/dL Glucose (74-99) mg/dL POC Glucose (mg/dL) 120 H (75-99) mg/dL Calcium (8.4-10.2) mg/dL Ionized Calcium Marcela (4.5-5.3) mg/dL Magnesium 2.5 H (1.6-2.3) mg/dL AST 50 H (14-36) U/L Total Protein 5.2 L (6.3-8.2) g/dL Albumin 3.1 L (3.5-5.0) g/dL Arterial Blood Glucose (75-99) mg/dL Crossmatch 06/02/19 06/02/19 06/02/19 Range/Units 05:02 05:22 06:26 RBC (3.80-5.40) m/uL Hgb (11.4-16.0) gm/dL Hct (34.0-46.0) % Plt Count (150-450) k/uL Lymphocytes # (1.0-4.8) k/uL ABG pH 7.51 H (7.35-7.45) ABG pCO2 (35-45) mmHg ABG pO2 139 H (83-108) mmHg ABG HCO3 29 H (21-25) mmol/L ABG Total CO2 30 H (19-24) mmol/L ABG O2 Saturation 99.3 H (94-97) % ABG Hematocrit (34.0-46.0) % ABG Sodium (135-146) mmol/L ABG Ionized Calcium (4.5-5.3) mg/dL ABG Glucose (75-99) mg/dL ABG Lactic Acid (0.5-1.6) mmol/L Hemoglobin (11.4-16.0) gm/dL Chloride (98-107) mmol/L Carbon Dioxide (22-30) mmol/L Creatinine (0.52-1.04) mg/dL Glucose (74-99) mg/dL POC Glucose (mg/dL) 129 H 115 H (75-99) mg/dL Calcium (8.4-10.2) mg/dL Ionized Calcium Marcela (4.5-5.3) mg/dL Magnesium (1.6-2.3) mg/dL AST (14-36) U/L Total Protein (6.3-8.2) g/dL Albumin (3.5-5.0) g/dL Arterial Blood Glucose (75-99) mg/dL Crossmatch 06/02/19 06/02/19 06/02/19 Range/Units 07:29 08:38 09:22 RBC (3.80-5.40) m/uL Hgb (11.4-16.0) gm/dL Hct (34.0-46.0) % Plt Count (150-450) k/uL Lymphocytes # (1.0-4.8) k/uL ABG pH (7.35-7.45) ABG pCO2 (35-45) mmHg ABG pO2 (83-108) mmHg ABG HCO3 (21-25) mmol/L ABG Total CO2 (19-24) mmol/L ABG O2 Saturation (94-97) % ABG Hematocrit (34.0-46.0) % ABG Sodium (135-146) mmol/L ABG Ionized Calcium (4.5-5.3) mg/dL ABG Glucose (75-99) mg/dL ABG Lactic Acid (0.5-1.6) mmol/L Hemoglobin (11.4-16.0) gm/dL Chloride (98-107) mmol/L Carbon Dioxide (22-30) mmol/L Creatinine (0.52-1.04) mg/dL Glucose (74-99) mg/dL POC Glucose (mg/dL) 106 H 121 H 123 H (75-99) mg/dL Calcium (8.4-10.2) mg/dL Ionized Calcium Marcela (4.5-5.3) mg/dL Magnesium (1.6-2.3) mg/dL AST (14-36) U/L Total Protein (6.3-8.2) g/dL Albumin (3.5-5.0) g/dL Arterial Blood Glucose (75-99) mg/dL Crossmatch Assessment and Plan Plan: 1 replacement of ascending aorta with a malik-arch reconstruction, aortic valve replacement with a bovine recovered a prosthesis and coronary artery bypass 1 with CORRALES to LAD and left atrial appendage clipping along with an anterior mediastinal lymph node biopsy. The patient is postop day #1 2 severe aortic regurgitation with a ascending aortic aneurysm and coronary artery disease 3 post thoracotomy and the patient is currently intubated on a mechanical ventilator, and expected outcome of cardiac surgery 4 hypertension currently on clevidipine drip for blood pressure control 5 anemia, due to intraoperative blood loss, expected outcome surgery and the patient was transfused with a total of 2 units of packed RBC, and the patient received another 2 units of packed RBC 4 hemoglobin of 6.4 this morning. 6 coagulopathy post transfusion with a 6 units of fresh frozen plasma 7 chronic anxiety 8 osteoarthritis Plan Sedation holiday Weaning parameters were checked Proceed with spontaneous breathing trial Check a blood gas in 30 minutes Possibly extubation today depending and a blood gas The cardiac pacemaker at the back of at the rate of 50 beats per minute and resting rhythm is sinus bradycardia at the rate of 50-60 Continue clevidipine for blood pressure control We'll continue to follow Critically care evaluation was done in the morning and 30 minutes. Time with Patient: Greater than 30
--- NOTE | 2019-06-02 09:54 | P.PN ---
Subjective Progress Note Date: 06/02/19 Principal diagnosis: Ascending aortic aneurysm, aortic valve insufficiency, coronary artery disease. Previous medical history of hypertension, hyperlipidemia, left internal carotid artery stenosis 50-79%, depression, uterine and skin cancer within the last 5 years, osteoarthritis, and family history of heart disease. Preoperative nasal swab positive for MRSA. POD #1 replacement of ascending aorta with 32 mm Gelweave tube graft with distal malik-arch reconstruction under circulatory arrest, replacement of aortic valve with 23 mm Avalus bovine pericardial bioprosthesis, coronary artery bypass grafting 1 with the left internal mammary artery to the left anterior descendin g artery, exclusion of the left atrial appendage with application of a 35 mm AtriCure clip, epi-aortic ultrasound, anterior mediastinal lymph node biopsy. Intra-and postoperative acute blood loss anemia and coagulopathy, expected outcome and given hemodilution, cardiopulmonary bypass pump, and circulatory arrest, status post transfusion Sedation is being lightened and the patient does open her eyes, move all extremities, and following commands. After surgery she was being AV paced as she was asystole underlying, this morning she has regained her intrinsic rhythm and is currently in sinus rhythm and hemodynamically stable. Currently on IV Cleviprex as we went the blood pressure to stay lower to avoid disruption of suture lines or increased bleeding. She has received multiple blood products. Ventilator changes being made per Dr. Norton. Objective - Vital Signs Vital signs: Vital Signs Temp 100.2 F H 06/02/19 06:40 Pulse 77 06/02/19 07:15 Resp 20 06/02/19 08:05 BP 111/51 06/02/19 07:00 Pulse Ox 98 06/02/19 07:00 Intake & Output 06/01/19 06/02/19 06/02/19 18:59 06:59 18:59 Intake Total 3821.961 3772.616 451.316 Output Total 3530 3008 390 Balance 291.961 764.616 61.316 Weight 70.7 kg Intake: IV 173.0 1769.5 248.5 ACETAMINOPHEN IV (For NPO 100 ) 1,000 mg In Empty Bag 1 bag @ 400 mls/hr IVPB Q6HR [facility] Rx#:[id number] Albumin Human 5% 250 ml 250 In Empty Bag 1 bag @ 250 mls/hr IVPB Q1HR PRN Rx#: [id number] Calcium Gluconate 2 gm In 100 Sodium Chloride 0.9% 100 ml @ 100 mls/hr IVPB ONCE PRN Rx#:[id number] Cardiac Output 20 210 20 Lactated Ringers 1,000 ml 100 600 150 @ 20 mls/hr IV .Q24H [facility] Rx#:[id number] Nitroglycerin-D5w Pmx 50 3.0 1.5 1.5 mg In Dextrose/Water 1 250ml.bag @ 5 MCG/MIN 1.5 mls/hr IV .Q24H [facility] Rx#: [id number] Potassium Chloride 10 meq 400 In Water For Injection 1 100ml.bag @ 100 mls/hr IVPB Q1H [facility] Rx#: [id number] Pressure Bags 18 108 27 ceFAZolin 2 gm In Sodium 50 Chloride 0.9% 50 ml @ 100 mls/hr IVPB Q8HR [facility] Rx# :[id number] Intake, IV Titration 1.961 176.116 142.816 Amount Clevidipine Butyrate 25 0.067 89.149 41.200 mg In Empty Bag 1 bag @ 1 MG/HR 2 mls/hr IV .Q24H [facility] Rx#:[id number] Insulin Regular 100 unit 1.894 27.531 1.616 In Sodium Chloride 0.9% 100 ml @ Per Protocol IV .Q0M [facility] Rx#:[id number] Propofol 1,000 mg In 59.436 100 Empty Bag 1 bag @ Titrate IV .Q0M [facility] Rx#: [id number] Blood Product 3647 1827 Ffp 24 Cpd Unit 315 [id number] Ffp 24 Cpd Unit 299 [id number] Ffp 24 Cpd Unit 285 [id number] Ffp 24 Cpd Unit 311 [id number] Ffp 24 Cpd Unit 314 [id number] Ffp 24 Cpd Unit 299 [id number] Ffp 24 Cpd Unit 317 [id number] Ffp 24 Cpd Unit 320 [id number] Platelet Irr Pheresis 0 268 Acda1 Unit [id number] Platelet Irr Pheresis 317 Acda1 Unit [id number] Platelet Pheresis Acda1 316 Unit [id number] Platelet Pheresis Acda1 244 Unit [id number] Platelet Pheresis Acda2 315 Unit [id number] Rc As-1 Unit 310 [id number] Rc As-3 Unit 310 [id number] Rc Pheresis 2 As3 Unit 0 [id number] Other 60 Output: Chest Tube Drainage 755 963 140 Bilateral Lateral Chest 55 373 60 Bilateral Mediastinal 700 590 80 Urine 575 2045 250 Estimated Blood Loss 2200 Other: Voiding Method Indwelling Catheter Indwelling Catheter Indwelling Catheter ABP, PAP, CO, CI - Last Documented Arterial Blood Pressure 106/43 Pulmonary Artery Pressure 28/15 Cardiac Output 5.4 Cardiac Index 3.5 - Constitutional General appearance: Present: cooperative, no acute distress - Respiratory Details: Lungs sounds diminished bilaterally. Respirations even, nonlabored. Currently on mechanical ventilation, assist control mode, FiO2 50%, tidal volume 400, re spiratory rate 12, PEEP 5. ABGs this morning 7.51/36/139/29/99%/5.6 on 60% FiO2 with a PEEP of 8 and respiratory rate 20. 8.0 ET tube present, 21 at the lip. Mediastinal chest tube present to continuous wall suction, 230 mL serosanguineous drainage overnight, 1200 mL since surgery, no air leak present. Left pleural chest tube to continuous wall suction, 200 mL serosanguineous drainage overnight, 450 mL since surgery, positive intermittent air leak present. - Cardiovascular Details: S1, S2 present. Regular rate and rhythm, sinus rhythm on telemetry. Sternum stable. A/V epicardial pacemaker wires present, connected to generator, VVI mode with backup rate 50 bpm. Palpable peripheral pulses bilaterally. Trace generalized edema present. Right internal jugular [place], right radial arterial line present. Last CO/CI 5.4/3.5 with CVP 13. Heart hugger, antiembolism stockings, SCDs present. - Gastrointestinal Gastrointestinal Comment(s): Abdomen soft, nontender, nondistended. Hypoactive bowel sounds present 4 quadrants. OG tube present to low intermittent suction with minimal output. - Genitourinary Genitourinary Comment(s): Burton present draining clear, yellow urine. Output 50-150 mL per hour overnight - Integumentary Integumentary Comment(s): Skin is warm and dry with evidence of good perfusion. Anterior chest incision well approximated and covered with dry intact dressing. - Neurologic Neurologic Comment(s): Able to follow commands and move all extremities Neurologic: Present: CNII-XII intact - Musculoskeletal Musculoskeletal: Present: generalized weakness, strength equal bilaterally - Psychiatric Psychiatric Comment(s): Nods and shakes had appropriately to questions Psychiatric: Present: A&O x's 3 - Allied health notes Allied health notes reviewed: nursing - Labs CBC & Chem 7: 06/02/19 04:00 06/02/19 04:00 Labs: Abnormal Lab Results - Last 24 Hours (Table) 05/28/19 06/01/19 06/01/19 Range/Units 11:10 08:45 10:26 RBC (3.80-5.40) m/uL Hgb (11.4-16.0) gm/dL Hct (34.0-46.0) % Plt Count (150-450) k/uL Lymphocytes # (1.0-4.8) k/uL ABG pH (7.35-7.45) ABG pCO2 (35-45) mmHg ABG pO2 225 H 267 H (83-108) mmHg ABG HCO3 28 H 27 H (21-25) mmol/L ABG Total CO2 29 H 28 H (19-24) mmol/L ABG O2 Saturation 99.9 H 99.8 H (94-97) % ABG Hematocrit 31 L (34.0-46.0) % ABG Sodium (135-146) mmol/L ABG Ionized Calcium (4.5-5.3) mg/dL ABG Glucose 116 H (75-99) mg/dL ABG Lactic Acid (0.5-1.6) mmol/L Hemoglobin 11.3 L 10.2 L (11.4-16.0) gm/dL Chloride (98-107) mmol/L Carbon Dioxide (22-30) mmol/L Creatinine (0.52-1.04) mg/dL Glucose (74-99) mg/dL POC Glucose (mg/dL) (75-99) mg/dL Calcium (8.4-10.2) mg/dL Ionized Calcium Marcela (4.5-5.3) mg/dL Magnesium (1.6-2.3) mg/dL AST (14-36) U/L Total Protein (6.3-8.2) g/dL Albumin (3.5-5.0) g/dL Arterial Blood Glucose 116 H (75-99) mg/dL Crossmatch See Detail 06/01/19 06/01/19 06/01/19 Range/Units 10:55 11:25 12:13 RBC (3.80-5.40) m/uL Hgb (11.4-16.0) gm/dL Hct (34.0-46.0) % Plt Count (150-450) k/uL Lymphocytes # (1.0-4.8) k/uL ABG pH 7.26 L (7.35-7.45) ABG pCO2 54 H (35-45) mmHg ABG pO2 >420 H >420 H 371 H (83-108) mmHg ABG HCO3 (21-25) mmol/L ABG Total CO2 25 H 26 H (19-24) mmol/L ABG O2 Saturation 100.0 H 100.0 H 99.8 H (94-97) % ABG Hematocrit 21 L 22 L 24 L (34.0-46.0) % ABG Sodium 134 L (135-146) mmol/L ABG Ionized Calcium 3.9 L 4.4 L 4.3 L (4.5-5.3) mg/dL ABG Glucose 117 H 113 H 129 H (75-99) mg/dL ABG Lactic Acid (0.5-1.6) mmol/L Hemoglobin 7.0 L* 7.2 L 7.7 L (11.4-16.0) gm/dL Chloride (98-107) mmol/L Carbon Dioxide (22-30) mmol/L Creatinine (0.52-1.04) mg/dL Glucose (74-99) mg/dL POC Glucose (mg/dL) (75-99) mg/dL Calcium (8.4-10.2) mg/dL Ionized Calcium Marcela (4.5-5.3) mg/dL Magnesium (1.6-2.3) mg/dL AST (14-36) U/L Total Protein (6.3-8.2) g/dL Albumin (3.5-5.0) g/dL Arterial Blood Glucose 117 H 113 H 129 H (75-99) mg/dL Crossmatch 06/01/19 06/01/19 06/01/19 Range/Units 12:47 15:55 16:15 RBC 2.65 L 2.64 L (3.80-5.40) m/uL Hgb 8.2 L D 8.0 L (11.4-16.0) gm/dL Hct 24.0 L 23.9 L (34.0-46.0) % Plt Count 122 L 108 L (150-450) k/uL Lymphocytes # 0.2 L 0.3 L (1.0-4.8) k/uL ABG pH 7.26 L (7.35-7.45) ABG pCO2 58 H (35-45) mmHg ABG pO2 >420 H (83-108) mmHg ABG HCO3 26 H (21-25) mmol/L ABG Total CO2 28 H (19-24) mmol/L ABG O2 Saturation 99.9 H (94-97) % ABG Hematocrit 22 L (34.0-46.0) % ABG Sodium (135-146) mmol/L ABG Ionized Calcium 4.4 L (4.5-5.3) mg/dL ABG Glucose 172 H (75-99) mg/dL ABG Lactic Acid 2.2 H* (0.5-1.6) mmol/L Hemoglobin 7.2 L (11.4-16.0) gm/dL Chloride (98-107) mmol/L Carbon Dioxide (22-30) mmol/L Creatinine (0.52-1.04) mg/dL Glucose (74-99) mg/dL POC Glucose (mg/dL) (75-99) mg/dL Calcium (8.4-10.2) mg/dL Ionized Calcium Marcela (4.5-5.3) mg/dL Magnesium (1.6-2.3) mg/dL AST (14-36) U/L Total Protein (6.3-8.2) g/dL Albumin (3.5-5.0) g/dL Arterial Blood Glucose 172 H (75-99) mg/dL Crossmatch 06/01/19 06/01/19 06/01/19 Range/Units 16:15 17:16 17:38 RBC (3.80-5.40) m/uL Hgb (11.4-16.0) gm/dL Hct (34.0-46.0) % Plt Count (150-450) k/uL Lymphocytes # (1.0-4.8) k/uL ABG pH (7.35-7.45) ABG pCO2 54 H (35-45) mmHg ABG pO2 212 H (83-108) mmHg ABG HCO3 30 H (21-25) mmol/L ABG Total CO2 31 H (19-24) mmol/L ABG O2 Saturation 99.5 H (94-97) % ABG Hematocrit (34.0-46.0) % ABG Sodium (135-146) mmol/L ABG Ionized Calcium (4.5-5.3) mg/dL ABG Glucose (75-99) mg/dL ABG Lactic Acid (0.5-1.6) mmol/L Hemoglobin (11.4-16.0) gm/dL Chloride 108 H (98-107) mmol/L Carbon Dioxide 31 H (22-30) mmol/L Creatinine 0.49 L (0.52-1.04) mg/dL Glucose 154 H (74-99) mg/dL POC Glucose (mg/dL) 171 H (75-99) mg/dL Calcium 7.4 L (8.4-10.2) mg/dL Ionized Calcium Marcela 4.3 L (4.5-5.3) mg/dL Magnesium 3.0 H (1.6-2.3) mg/dL AST 42 H (14-36) U/L Total Protein 4.7 L (6.3-8.2) g/dL Albumin 2.7 L (3.5-5.0) g/dL Arterial Blood Glucose (75-99) mg/dL Crossmatch 06/01/19 06/01/19 06/01/19 Range/Units 18:04 19:16 19:59 RBC 2.92 L (3.80-5.40) m/uL Hgb 9.0 L (11.4-16.0) gm/dL Hct 26.6 L (34.0-46.0) % Plt Count (150-450) k/uL Lymphocytes # 0.3 L (1.0-4.8) k/uL ABG pH (7.35-7.45) ABG pCO2 (35-45) mmHg ABG pO2 (83-108) mmHg ABG HCO3 (21-25) mmol/L ABG Total CO2 (19-24) mmol/L ABG O2 Saturation (94-97) % ABG Hematocrit (34.0-46.0) % ABG Sodium (135-146) mmol/L ABG Ionized Calcium (4.5-5.3) mg/dL ABG Glucose (75-99) mg/dL ABG Lactic Acid (0.5-1.6) mmol/L Hemoglobin (11.4-16.0) gm/dL Chloride (98-107) mmol/L Carbon Dioxide (22-30) mmol/L Creatinine (0.52-1.04) mg/dL Glucose (74-99) mg/dL POC Glucose (mg/dL) 180 H 157 H (75-99) mg/dL Calcium (8.4-10.2) mg/dL Ionized Calcium Marcela (4.5-5.3) mg/dL Magnesium (1.6-2.3) mg/dL AST (14-36) U/L Total Protein (6.3-8.2) g/dL Albumin (3.5-5.0) g/dL Arterial Blood Glucose (75-99) mg/dL Crossmatch 06/01/19 06/01/19 06/01/19 Range/Units 20:00 21:13 21:59 RBC (3.80-5.40) m/uL Hgb (11.4-16.0) gm/dL Hct (34.0-46.0) % Plt Count (150-450) k/uL Lymphocytes # (1.0-4.8) k/uL ABG pH 7.46 H (7.35-7.45) ABG pCO2 (35-45) mmHg ABG pO2 (83-108) mmHg ABG HCO3 28 H (21-25) mmol/L ABG Total CO2 30 H (19-24) mmol/L ABG O2 Saturation 97.9 H (94-97) % ABG Hematocrit (34.0-46.0) % ABG Sodium (135-146) mmol/L ABG Ionized Calcium (4.5-5.3) mg/dL ABG Glucose (75-99) mg/dL ABG Lactic Acid (0.5-1.6) mmol/L Hemoglobin (11.4-16.0) gm/dL Chloride (98-107) mmol/L Carbon Dioxide (22-30) mmol/L Creatinine (0.52-1.04) mg/dL Glucose (74-99) mg/dL POC Glucose (mg/dL) 150 H 131 H (75-99) mg/dL Calcium (8.4-10.2) mg/dL Ionized Calcium Marcela (4.5-5.3) mg/dL Magnesium (1.6-2.3) mg/dL AST (14-36) U/L Total Protein (6.3-8.2) g/dL Albumin (3.5-5.0) g/dL Arterial Blood Glucose (75-99) mg/dL Crossmatch 06/01/19 06/02/19 06/02/19 Range/Units 23:47 00:38 01:44 RBC (3.80-5.40) m/uL Hgb (11.4-16.0) gm/dL Hct (34.0-46.0) % Plt Count (150-450) k/uL Lymphocytes # (1.0-4.8) k/uL ABG pH (7.35-7.45) ABG pCO2 (35-45) mmHg ABG pO2 (83-108) mmHg ABG HCO3 (21-25) mmol/L ABG Total CO2 (19-24) mmol/L ABG O2 Saturation (94-97) % ABG Hematocrit (34.0-46.0) % ABG Sodium (135-146) mmol/L ABG Ionized Calcium (4.5-5.3) mg/dL ABG Glucose (75-99) mg/dL ABG Lactic Acid (0.5-1.6) mmol/L Hemoglobin (11.4-16.0) gm/dL Chloride (98-107) mmol/L Carbon Dioxide (22-30) mmol/L Creatinine (0.52-1.04) mg/dL Glucose (74-99) mg/dL POC Glucose (mg/dL) 125 H 138 H 124 H (75-99) mg/dL Calcium (8.4-10.2) mg/dL Ionized Calcium Marcela (4.5-5.3) mg/dL Magnesium (1.6-2.3) mg/dL AST (14-36) U/L Total Protein (6.3-8.2) g/dL Albumin (3.5-5.0) g/dL Arterial Blood Glucose (75-99) mg/dL Crossmatch 06/02/19 06/02/19 06/02/19 Range/Units 02:33 04:00 04:00 RBC 2.15 L (3.80-5.40) m/uL Hgb 6.4 L* D (11.4-16.0) gm/dL Hct 19.3 L* (34.0-46.0) % Plt Count 133 L (150-450) k/uL Lymphocytes # 0.4 L (1.0-4.8) k/uL ABG pH (7.35-7.45) ABG pCO2 (35-45) mmHg ABG pO2 (83-108) mmHg ABG HCO3 (21-25) mmol/L ABG Total CO2 (19-24) mmol/L ABG O2 Saturation (94-97) % ABG Hematocrit (34.0-46.0) % ABG Sodium (135-146) mmol/L ABG Ionized Calcium (4.5-5.3) mg/dL ABG Glucose (75-99) mg/dL ABG Lactic Acid (0.5-1.6) mmol/L Hemoglobin (11.4-16.0) gm/dL Chloride (98-107) mmol/L Carbon Dioxide (22-30) mmol/L Creatinine (0.52-1.04) mg/dL Glucose (74-99) mg/dL POC Glucose (mg/dL) 120 H (75-99) mg/dL Calcium (8.4-10.2) mg/dL Ionized Calcium Marcela (4.5-5.3) mg/dL Magnesium 2.5 H (1.6-2.3) mg/dL AST 50 H (14-36) U/L Total Protein 5.2 L (6.3-8.2) g/dL Albumin 3.1 L (3.5-5.0) g/dL Arterial Blood Glucose (75-99) mg/dL Crossmatch 06/02/19 06/02/19 06/02/19 Range/Units 05:02 05:22 06:26 RBC (3.80-5.40) m/uL Hgb (11.4-16.0) gm/dL Hct (34.0-46.0) % Plt Count (150-450) k/uL Lymphocytes # (1.0-4.8) k/uL ABG pH 7.51 H (7.35-7.45) ABG pCO2 (35-45) mmHg ABG pO2 139 H (83-108) mmHg ABG HCO3 29 H (21-25) mmol/L ABG Total CO2 30 H (19-24) mmol/L ABG O2 Saturation 99.3 H (94-97) % ABG Hematocrit (34.0-46.0) % ABG Sodium (135-146) mmol/L ABG Ionized Calcium (4.5-5.3) mg/dL ABG Glucose (75-99) mg/dL ABG Lactic Acid (0.5-1.6) mmol/L Hemoglobin (11.4-16.0) gm/dL Chloride (98-107) mmol/L Carbon Dioxide (22-30) mmol/L Creatinine (0.52-1.04) mg/dL Glucose (74-99) mg/dL POC Glucose (mg/dL) 129 H 115 H (75-99) mg/dL Calcium (8.4-10.2) mg/dL Ionized Calcium Marcela (4.5-5.3) mg/dL Magnesium (1.6-2.3) mg/dL AST (14-36) U/L Total Protein (6.3-8.2) g/dL Albumin (3.5-5.0) g/dL Arterial Blood Glucose (75-99) mg/dL Crossmatch 06/02/19 06/02/19 Range/Units 07:29 08:38 RBC (3.80-5.40) m/uL Hgb (11.4-16.0) gm/dL Hct (34.0-46.0) % Plt Count (150-450) k/uL Lymphocytes # (1.0-4.8) k/uL ABG pH (7.35-7.45) ABG pCO2 (35-45) mmHg ABG pO2 (83-108) mmHg ABG HCO3 (21-25) mmol/L ABG Total CO2 (19-24) mmol/L ABG O2 Saturation (94-97) % ABG Hematocrit (34.0-46.0) % ABG Sodium (135-146) mmol/L ABG Ionized Calcium (4.5-5.3) mg/dL ABG Glucose (75-99) mg/dL ABG Lactic Acid (0.5-1.6) mmol/L Hemoglobin (11.4-16.0) gm/dL Chloride (98-107) mmol/L Carbon Dioxide (22-30) mmol/L Creatinine (0.52-1.04) mg/dL Glucose (74-99) mg/dL POC Glucose (mg/dL) 106 H 121 H (75-99) mg/dL Calcium (8.4-10.2) mg/dL Ionized Calcium Marcela (4.5-5.3) mg/dL Magnesium (1.6-2.3) mg/dL AST (14-36) U/L Total Protein (6.3-8.2) g/dL Albumin (3.5-5.0) g/dL Arterial Blood Glucose (75-99) mg/dL Crossmatch - Imaging and Cardiology Chest x-ray: report reviewed, image reviewed Assessment and Plan Assessment: 1. Ascending aortic aneurysm, status post replacement with 32 mm Gelweave tube graft with distal malik-arch reconstruction under circulatory arrest 2. Aortic valve insufficiency, status post bioprosthetic aortic valve replacement 3. Coronary artery disease, status post 1 vessel CABG, CORRALES to the LAD 4. History of hypertension 5. Hyperlipidemia 6. Left internal carotid artery stenosis 50-79% 7. Depression 8. History of uterine and skin cancer 9. Osteoarthritis 10. Family history of heart disease 11. Preoperative nasal swab positive for MRSA 12. Intra-and postoperative acute blood loss anemia and coagulopathy Plan: 1. Continue aspirin, statin. Will start Plavix tomorrow and decrease aspirin to 81 mg 2. Will start low-dose beta mary and increase as tolerated 3. Wean Cleviprex drip. Keep systolic blood pressure 110-120 4. Wean ventilator as tolerated. Ventilator management, bronchodilators per pulmonology. Once extubated encourage incentive spirometry use 10 times every hour while awake 5. Once extubated, increase activity as tolerated. PT/OT/cardiac rehab consulted 6. Will monitor daily labs and x-rays. Electrolyte replacement per protocol. Status post blood transfusion this morning, will recheck hemoglobin and evaluate for further blood transfusion 7. Insulin management per primary care service 8. Pain control with current medication regimen. No Toradol at this time 9. Keep chest tubes for another 24 hours 10. Keep Burton for another 24 hours for accurate intake and output 11. Zoloft added per patient's home regimen 12. More recommendations to follow Time with Patient: Greater than 30
[2019-06-02 10:03] LABS: ABG Base Excess 3.8 mmol/L; ABG HCO3 28 mmol/L (21-25); ABG Oxygen Saturation 98.9 % (94-97); ABG PCO2 42 mmHg (35-45); ABG PH 7.44 (7.35-7.45); ABG PO2 100 mmHg (83-108); ABG TCO2 29 mmol/L (19-24); Allen Test Performed? Yes
[2019-06-02 10:17] LABS: Glucose,Whole Blood 125 mg/dL (75-99)
[2019-06-02] MEDS: MUPIROCIN 2% OINT 22 GM TUBE NASAL SCH ×2 (10:18→20:16)
[2019-06-02 10:24] LABS: HCT 23.7 % (34.0-46.0); MCHC 34.2 g/dL (31.0-37.0); MCV 90.6 fL (80.0-100.0); Mean Platelet Volume 8.6; Platelet Count 135 k/uL (150-450); RBC 2.62 m/uL (3.80-5.40); RDW 13.5 % (11.5-15.5); WBC 8.4 k/uL (3.8-10.6)
[2019-06-02 10:27] LABS: HGB 8.1 gm/dL (11.4-16.0)
--- NOTE | 2019-06-02 11:10 | CONS ---
CONSULTATION Mrs. Najera is an 84-year-old female who was admitted yesterday to undergo aortic valve replacement, ascending aorta repair as well as single CORRALES to the LAD. She remains intubated because she had some postoperative bleeding that has stabilized. Hemodynamically she is in sinus mechanism. Her prior workup included a cardiac catheterization done in March and at that time was found to have moderate disease in the right coronary artery and the LAD with a 3+ aortic regurgitation and dilatation of the ascending aorta. Her prior history is remarkable for the history of progressive aortic regurgitation. She has a history of hypertension and hyperlipidemia. She is awake at this point, but remains intubated. Postoperatively, she had episodes of asystole and was paced, but her pacer is on backup now and she has her own rhythm. MEDICATION: Medications prior to the admission included simvastatin 10 mg daily, lisinopril 5 mg daily, diltiazem CD 120 mg daily, and aspirin. REVIEW OF SYSTEMS: Could not be obtained at this time. The patient in the past had no symptoms of GI or bleeding. No history of obstructive lung disease. PHYSICAL EXAMINATION: She is an 84-year-old female, intubated, no apparent distress. Blood pressure 111/51 with the heart rate in 70s. Opening her eyes to verbal stimuli. HEAD: Normocephalic. EYES: Sclerae anicteric. NECK: No bruit. LUNGS: Clear to auscultation anteriorly. HEART: Regular rate and rhythm. S1, S2. No S3. No rub appreciated. ABDOMEN: Soft, hypoactive bowel sounds. No organomegaly. EXTREMITIES: No edema. LAB DATA: Lab data revealed a hemoglobin of 6.4. Her BUN and creatinine 13 and 0.59. Her chest x-ray shows mild congestion with no infiltrate. IMPRESSION: 1. Status post aortic valve replacement, repair of the ascending aorta as well as CORRALES to the LAD. 2. History of hypertension. 3. History of hyperlipidemia. 4. Bradycardia postoperatively appears to be improving. At this time she is not had depending on her pacemaker. 5. Anemia postoperatively, may require transfusion. RECOMMENDATION: From the cardiac standpoint at this time, I am hoping that we can extubate her soon. We will continue to follow her rhythm. If she has evidence of significant bradyarrhythmia, then a permanent pacemaker implantation will be recommended. Otherwise, we will continue her present therapy and depending on her progress, further recommendation will be made. MMODL / IJN: [id number] /
[2019-06-02 11:24] LABS: Glucose,Whole Blood 105 mg/dL (75-99)
[2019-06-02] MEDS: HYDROcodone/APAP 5-325MG 1 EACH TAB PO PRN ×3 (11:46→22:42)
[2019-06-02 13:49] LABS: Glucose,Whole Blood 129 mg/dL (75-99)
[2019-06-02] MEDS ORDERED: fentaNYL (PF) 50 MCG/ML 2 ML AMP IVP ONE (13:58)
[2019-06-02 14:57] LABS: Glucose,Whole Blood 97 mg/dL (75-99)
[2019-06-02] MEDS: LIDOCAINE 5% PATCH TOPICAL SCH (16:24)
[2019-06-02 16:33] LABS: Glucose,Whole Blood 147 mg/dL (75-99)
[2019-06-02 20:04] LABS: Glucose,Whole Blood 332 mg/dL (75-99)
[2019-06-02] MEDS: SENNOSIDES-DOCUSATE SODIUM 1 EACH TAB PO SCH (20:11)
[2019-06-02] MEDS: KETOROLAC 30 MG/ML 1 ML VIAL IVP SCH (20:11)
[2019-06-02] MEDS ORDERED: FUROSEMIDE 10 MG/ML 2 ML VIAL IV ONE (20:44)
[2019-06-02 20:45] LABS: Glucose,Whole Blood 221 mg/dL (75-99)
--- NOTE | 2019-06-02 21:05 | PN ---
PROGRESS NOTE DATE OF SERVICE: 06/02/2019 This 83-year-old woman who was admitted after aortic surgery and aortic graft replacement is extubated. Patient still has chest tubes in situ. No chest pain. No palpitations. No fever. Patient being closely monitored. Blood sugars are well controlled. PHYSICAL EXAMINATION: Alert and oriented x3. Pulse is 71. Blood pressure 106/64, respiration 24, temperature normal, pulse ox 94% on 3 L. HEENT is conjunctivae normal. NECK: No JVD. CARDIOVASCULAR: S1, S2 muffled. RESPIRATORY: Breath sounds diminished in the bases. Scattered rhonchi and crackles. Abdomen soft. Nervous system: No focal deficits. LABS: Accu-Cheks noted 129, 97, 147, hemoglobin 8.1 and sodium 140. Potassium 4.4. ASSESSMENT: 1. Status post replacement of ascending aorta with graft with distal malik- reconstruction as well as aortic valve replacement with bovine pericardial process and CABG x1 with CORRALES to LAD. 2. Anemia, normocytic as expected. 3. Elevated blood sugar, was on insulin drip. 4. History of coronary artery disease. 5. Hypertension. 6. Hyperlipidemia. 7. History of degenerative joint disease. 8. History of ascending aortic aneurysm and severe aortic regurgitation. 9. History of uterine cancer. 10.History of anxiety. 11.FULL CODE. RECOMMENDATIONS AND DISCUSSION: Recommend to continue current medications, management and symptomatic treatment. Continue incentive spirometry. Bronchodilators. Continue rest of the medications. DVT prophylaxis. Monitor blood sugars closely. The rest of management per Cardiothoracic surgery and Pulmonology. Further recommendations to follow. MMODL / IJN: [id number] /
[2019-06-02 21:31] LABS: Glucose,Whole Blood 163 mg/dL (75-99)
[2019-06-02 23:44] LABS: Glucose,Whole Blood 110 mg/dL (75-99)
[2019-06-03 02:10] LABS: Glucose,Whole Blood 181 mg/dL (75-99)
[2019-06-03 03:11] LABS: Glucose,Whole Blood 166 mg/dL (75-99)
[2019-06-03] MEDS: ONDANSETRON 4 MG/2 ML VIAL IVP PRN ×2 (03:36→09:10)
[2019-06-03 04:15] LABS: Glucose,Whole Blood 137 mg/dL (75-99)
[2019-06-03 05:01] LABS: Glucose,Whole Blood 135 mg/dL (75-99)
[2019-06-03] MEDS: KETOROLAC 30 MG/ML 1 ML VIAL IVP SCH ×4 (05:25→18:40)
[2019-06-03] MEDS: HEPARIN SODIUM,PORCINE 5,000 UNIT/ML 1 ML VIAL SQ SCH ×3 (05:26→16:30)
[2019-06-03 06:05] LABS: Glucose,Whole Blood 116 mg/dL (75-99)
[2019-06-03 06:37] LABS: Basophils % (A) 0 %; Eosinophils % (A) 0 %; HCT 21.7 % (34.0-46.0); HGB 7.3 gm/dL (11.4-16.0); Lymphocytes # (A) 0.4 k/uL (1.0-4.8); Lymphocytes % (A) 4 %; MCHC 33.5 g/dL (31.0-37.0); MCV 92.5 fL (80.0-100.0); Mean Platelet Volume 9.8; Monocytes # (A) 0.4 k/uL (0-1.0); Monocytes % (A) 4 %; Neutrophils # (A) 8.7 k/uL (1.3-7.7); Neutrophils % (A) 90 %; Platelet Count 100 k/uL (150-450); RBC 2.34 m/uL (3.80-5.40); RDW 13.6 % (11.5-15.5); WBC 9.6 k/uL (3.8-10.6)
[2019-06-03 06:41] LABS: Ionized Calcium 4.9 mg/dL (4.5-5.3)
[2019-06-03 06:48] LABS: Albumin 2.9 g/dL (3.5-5.0); Calcium 8.3 mg/dL (8.4-10.2); Potassium 3.9 mmol/L (3.5-5.1); Total Bilirubin 0.7 mg/dL (0.2-1.3); Total Protein 4.9 g/dL (6.3-8.2)
[2019-06-03 06:53] LABS: Glucose,Whole Blood 130 mg/dL (75-99)
[2019-06-03] MEDS ORDERED: PANTOPRAZOLE 40 MG TABLET PO SCH (07:30)
--- NOTE | 2019-06-03 07:54 | PN ---
PROGRESS NOTE Mrs. Najera is an 84-year-old female who underwent aortic valve replacement and coronary bypass grafting. She is sitting up in the chair last night. She had an episode of dyspnea. She is feeling better this morning. She is paced at this time. She denies any dizziness or palpitation. She denies any nausea. She has no chest discomfort. She is on no vasopressor. She continues to be on aspirin, Lipitor 40 mg daily, metoprolol tartrate 12.5 mg twice a day. PHYSICAL EXAMINATION: Blood pressure running in the 100s with a heart rate in the 80s. LUNGS: With decreased breath sounds in both bases with a few crackles. HEART: Regular rate and rhythm, S1, S2. No S3. No rub appreciated. ABDOMEN: Soft, nontender. EXTREMITIES: No edema. LAB DATA: Revealed BUN and creatinine 20 and 0.93, potassium 3.9, hemoglobin of 7.3. IMPRESSION: 1. Status post aortic valve replacement and coronary bypass grafting with repair of the ascending aorta. 2. Episode of asystole. Patient had her own rhythm yesterday. ill continue to monitor her rhythm and make a decision if a permanent pacemaker is needed. 3. History of hypertension. 4. Hyperlipidemia. RECOMMENDATION: We will continue present therapy, follow her rhythm and if she continues to have episode of complete heart block and asystole, then a permanent pacemaker implantation will be needed. Depending on her progress, further recommendation will be made. YVONNE / RITA: [phone] /
--- NOTE | 2019-06-03 08:10 | XR ---
EXAMINATION TYPE: XR chest 1V portable DATE OF EXAM: 06/03/2019 COMPARISON: 06/02/2019 HISTORY: Status post cardiac surgery. Follow-up exam. TECHNIQUE: Single frontal view of the chest is obtained. FINDINGS: Enlarged cardiac mediastinal silhouette has progressively enlarged in comparison to the pr ior but shifted to the left secondary to patient rotation. Mediastinal drains and bilateral thoracost chay tubes are redemonstrated. No residual pneumothorax seen. Right-sided Barrow-Jaen catheter internal jugular sheath remains however the Barrow-Jane catheter itself has been removed. Enteric and endotrache al tubes have also been removed. Scattered areas of atelectasis remain. Extensive overlying subcutane ous emphysema has improved. Diffuse osseous demineralization is seen. IMPRESSION: Relative enlargement of the cardia mediastinal silhouette in comparison the prior althou gh exaggerated by rotation. Echocardiogram could assess for pericardial effusion.
[2019-06-03] MEDS: IPRATROPIUM-ALBUTEROL 3 ML NEB INHALATION SCH ×4 (08:39→20:24)
[2019-06-03] MEDS: POTASSIUM CHLORIDE 10 MEQ in WATER FOR INJECTION 1 100ML.BAG IVPB SCH ×2 (09:03→11:34)
[2019-06-03] MEDS: LIDOCAINE 5% PATCH TOPICAL SCH (09:05)
--- NOTE | 2019-06-03 09:06 | P.PN ---
Subjective Progress Note Date: 06/03/19 Principal diagnosis: Ascending aortic aneurysm, aortic valve insufficiency, coronary artery disease. Previous medical history of hypertension, hyperlipidemia, left internal carotid artery stenosis 50-79%, depression, uterine and skin cancer within the last 5 years, osteoarthritis, and family history of heart disease. Preoperative nasal swab positive for MRSA. POD #2 replacement of ascending aorta with 32 mm Gelweave tube graft with distal malik-arch reconstruction under circulatory arrest, replacement of aortic valve with 23 mm Avalus bovine pericardial bioprosthesis, coronary artery bypass grafting 1 with the left internal mammary artery to the left anterior descendin g artery, exclusion of the left atrial appendage with application of a 35 mm AtriCure clip, epi-aortic ultrasound, anterior mediastinal lymph node biopsy. Intra-and postoperative acute blood loss anemia and coagulopathy, expected outcome and given hemodilution, cardiopulmonary bypass pump, and circulatory arrest, status post transfusion Postoperative controlled atrial fibrillation, unexpected The patient is currently sitting up in a recliner on the cardiac stepdown unit in no acute distress. She was successfully extubated yesterday at 10:10 am. She states post surgical pain is better controlled today, denies shortness of breath. She did go into conrtrolled atrial fibrillation yesterday and amiodarone was initiated. Urine output decreased, she was given IV lasix with positive initial response of 150 mL, but urine output has started to drift down again. Blood pressure borderline, patient is being AV paced. She is alert and oriented but does feel like she's in a fog. Received 1 unit PRBCs yesterday for HGB 6.4, brought up to 8.1 after infusion, 7.3 this AM. Objective - Vital Signs Vital signs: Vital Signs Temp 97.8 F 06/03/19 02:30 Pulse 80 06/03/19 06:00 Resp 15 06/03/19 06:00 BP 99/51 06/03/19 06:00 Pulse Ox 97 06/03/19 06:00 Intake & Output 06/02/19 06/03/19 06/03/19 18:59 06:59 18:59 Intake Total 1524.571 816.602 Output Total 1205 820 Balance 319.571 -3.398 Weight 66.5 kg Intake: IV 723.5 592 Amiodarone Bolus 150 Cardiac Output 60 Lactated Ringers 1,000 ml 510 370 @ 20 mls/hr IV .Q24H DENISE Rx#:[id number] Nitroglycerin-D5w Pmx 50 1.5 mg In Dextrose/Water 1 250ml.bag @ 5 MCG/MIN 1.5 mls/hr IV .Q24H DENISE Rx#: [id number] Pressure Bags 102 72 ceFAZolin 2 gm In Sodium 50 Chloride 0.9% 50 ml @ 100 mls/hr IVPB Q8HR DENISE Rx# :[id number] Intake, IV Titration 181.071 24.602 Amount Clevidipine Butyrate 25 57.933 mg In Empty Bag 1 bag @ 1 MG/HR 2 mls/hr IV .Q24H DENISE Rx#:[id number] Insulin Regular 100 unit 7.584 24.602 In Sodium Chloride 0.9% 100 ml @ Per Protocol IV .Q0M DENISE Rx#:[id number] Propofol 1,000 mg In 115.554 Empty Bag 1 bag @ Titrate IV .Q0M DENISE Rx#: [id number] Oral 250 200 Blood Product 310 Rc Pheresis 2 As3 Unit 310 [id number] Other 60 Output: Chest Tube Drainage 590 360 Bilateral Lateral Chest 360 230 Bilateral Mediastinal 230 130 Urine 615 460 Other: Voiding Method Indwelling Catheter Indwelling Catheter ABP, PAP, CO, CI - Last Documented Arterial Blood Pressure 98/36 Pulmonary Artery Pressure 17/3 Cardiac Output 3.9 Cardiac Index 2.5 - Constitutional General appearance: Present: cooperative, no acute distress - Respiratory Details: Lungs sounds diminished bilaterally with faint crackles in the left base. Respirations even, nonlabored. Currently on 3LPM NC with oxygen saturation 93%. Able to achieve 750 mL on her incentive spirometry. Mediastinal chest tube present to continuous wall suction, 60 mL serosanguineous drainage overnight, 300 mL the last 24 hours, no air leak present. Left pleural chest tube to continuous wall suction, 100 mL serosanguineous drainage overnight, 500 mL since surgery, positive intermittent air leak present. - Cardiovascular Details: S1, S2 present. AV paced on telemetry with lack of underlying conduction. Sternum stable. A/V epicardial pacemaker wires present, connected to generator, DDD mode with rate 80 bpm, extra ventricular wires connected to second generator with VVI mode and backup rate 56 bpm. Palpable peripheral pulses bilaterally. Trace generalized edema present. Right internal jugular Cordis, right radial arterial line present. Heart hugger in place with patient demonstrating appropriate use, antiembolism stockings, SCDs present. - Gastrointestinal Gastrointestinal Comment(s): Abdomen soft, nontender, nondistended. Active bowel sounds present 4 quadrants. Tolerating diet. Positive flatus - Genitourinary Genitourinary Comment(s): Burton present draining clear, yellow urine. Output 150 milliliters last night after IV Lasix and then dwindled down to 15-20 mL per hour. - Integumentary Integumentary Comment(s): Skin is warm and dry with evidence of good perfusion. Anterior chest incision well approximated and covered with dry intact dressing. - Neurologic Neurologic: Present: CNII-XII intact - Musculoskeletal Musculoskeletal: Present: strength equal bilaterally - Psychiatric Psychiatric Comment(s): Patient has been in and out of confusion, this morning she did know where she was had in the year as well as that she had open heart surgery. She does need constant reminder that she can't get up without help. Occasionally confused. - Allied health notes Allied health notes reviewed: nursing - Labs CBC & Chem 7: 06/03/19 04:30 06/03/19 04:30 Labs: Abnormal Lab Results - Last 24 Hours (Table) 05/28/19 06/02/19 06/02/19 Range/Units 11:10 07:29 08:38 RBC (3.80-5.40) m/uL Hgb (11.4-16.0) gm/dL Hct (34.0-46.0) % Plt Count (150-450) k/uL Neutrophils # (1.3-7.7) k/uL Lymphocytes # (1.0-4.8) k/uL ABG HCO3 (21-25) mmol/L ABG Total CO2 (19-24) mmol/L ABG O2 Saturation (94-97) % Sodium (137-145) mmol/L BUN (7-17) mg/dL Glucose (74-99) mg/dL POC Glucose (mg/dL) 106 H 121 H (75-99) mg/dL Calcium (8.4-10.2) mg/dL AST (14-36) U/L Total Protein (6.3-8.2) g/dL Albumin (3.5-5.0) g/dL Crossmatch See Detail 06/02/19 06/02/19 06/02/19 Range/Units 09:05 09:22 10:01 RBC 2.62 L (3.80-5.40) m/uL Hgb 8.1 L D (11.4-16.0) gm/dL Hct 23.7 L (34.0-46.0) % Plt Count 135 L (150-450) k/uL Neutrophils # (1.3-7.7) k/uL Lymphocytes # (1.0-4.8) k/uL ABG HCO3 28 H (21-25) mmol/L ABG Total CO2 29 H (19-24) mmol/L ABG O2 Saturation 98.9 H (94-97) % Sodium (137-145) mmol/L BUN (7-17) mg/dL Glucose (74-99) mg/dL POC Glucose (mg/dL) 123 H (75-99) mg/dL Calcium (8.4-10.2) mg/dL AST (14-36) U/L Total Protein (6.3-8.2) g/dL Albumin (3.5-5.0) g/dL Crossmatch 06/02/19 06/02/19 06/02/19 Range/Units 10:15 11:23 13:45 RBC (3.80-5.40) m/uL Hgb (11.4-16.0) gm/dL Hct (34.0-46.0) % Plt Count (150-450) k/uL Neutrophils # (1.3-7.7) k/uL Lymphocytes # (1.0-4.8) k/uL ABG HCO3 (21-25) mmol/L ABG Total CO2 (19-24) mmol/L ABG O2 Saturation (94-97) % Sodium (137-145) mmol/L BUN (7-17) mg/dL Glucose (74-99) mg/dL POC Glucose (mg/dL) 125 H 105 H 129 H (75-99) mg/dL Calcium (8.4-10.2) mg/dL AST (14-36) U/L Total Protein (6.3-8.2) g/dL Albumin (3.5-5.0) g/dL Crossmatch 06/02/19 06/02/19 06/02/19 Range/Units 16:31 20:03 20:44 RBC (3.80-5.40) m/uL Hgb (11.4-16.0) gm/dL Hct (34.0-46.0) % Plt Count (150-450) k/uL Neutrophils # (1.3-7.7) k/uL Lymphocytes # (1.0-4.8) k/uL ABG HCO3 (21-25) mmol/L ABG Total CO2 (19-24) mmol/L ABG O2 Saturation (94-97) % Sodium (137-145) mmol/L BUN (7-17) mg/dL Glucose (74-99) mg/dL POC Glucose (mg/dL) 147 H 332 H 221 H (75-99) mg/dL Calcium (8.4-10.2) mg/dL AST (14-36) U/L Total Protein (6.3-8.2) g/dL Albumin (3.5-5.0) g/dL Crossmatch 06/02/19 06/02/19 06/03/19 Range/Units 21:30 23:44 02:09 RBC (3.80-5.40) m/uL Hgb (11.4-16.0) gm/dL Hct (34.0-46.0) % Plt Count (150-450) k/uL Neutrophils # (1.3-7.7) k/uL Lymphocytes # (1.0-4.8) k/uL ABG HCO3 (21-25) mmol/L ABG Total CO2 (19-24) mmol/L ABG O2 Saturation (94-97) % Sodium (137-145) mmol/L BUN (7-17) mg/dL Glucose (74-99) mg/dL POC Glucose (mg/dL) 163 H 110 H 181 H (75-99) mg/dL Calcium (8.4-10.2) mg/dL AST (14-36) U/L Total Protein (6.3-8.2) g/dL Albumin (3.5-5.0) g/dL Crossmatch 06/03/19 06/03/19 06/03/19 Range/Units 02:59 04:13 04:30 RBC 2.34 L (3.80-5.40) m/uL Hgb 7.3 L (11.4-16.0) gm/dL Hct 21.7 L (34.0-46.0) % Plt Count 100 L (150-450) k/uL Neutrophils # 8.7 H (1.3-7.7) k/uL Lymphocytes # 0.4 L (1.0-4.8) k/uL ABG HCO3 (21-25) mmol/L ABG Total CO2 (19-24) mmol/L ABG O2 Saturation (94-97) % Sodium (137-145) mmol/L BUN (7-17) mg/dL Glucose (74-99) mg/dL POC Glucose (mg/dL) 166 H 137 H (75-99) mg/dL Calcium (8.4-10.2) mg/dL AST (14-36) U/L Total Protein (6.3-8.2) g/dL Albumin (3.5-5.0) g/dL Crossmatch 06/03/19 06/03/19 06/03/19 Range/Units 04:30 04:59 06:04 RBC (3.80-5.40) m/uL Hgb (11.4-16.0) gm/dL Hct (34.0-46.0) % Plt Count (150-450) k/uL Neutrophils # (1.3-7.7) k/uL Lymphocytes # (1.0-4.8) k/uL ABG HCO3 (21-25) mmol/L ABG Total CO2 (19-24) mmol/L ABG O2 Saturation (94-97) % Sodium 136 L (137-145) mmol/L BUN 20 H (7-17) mg/dL Glucose 113 H (74-99) mg/dL POC Glucose (mg/dL) 135 H 116 H (75-99) mg/dL Calcium 8.3 L (8.4-10.2) mg/dL AST 64 H (14-36) U/L Total Protein 4.9 L (6.3-8.2) g/dL Albumin 2.9 L (3.5-5.0) g/dL Crossmatch 06/03/19 Range/Units 06:52 RBC (3.80-5.40) m/uL Hgb (11.4-16.0) gm/dL Hct (34.0-46.0) % Plt Count (150-450) k/uL Neutrophils # (1.3-7.7) k/uL Lymphocytes # (1.0-4.8) k/uL ABG HCO3 (21-25) mmol/L ABG Total CO2 (19-24) mmol/L ABG O2 Saturation (94-97) % Sodium (137-145) mmol/L BUN (7-17) mg/dL Glucose (74-99) mg/dL POC Glucose (mg/dL) 130 H (75-99) mg/dL Calcium (8.4-10.2) mg/dL AST (14-36) U/L Total Protein (6.3-8.2) g/dL Albumin (3.5-5.0) g/dL Crossmatch - Imaging and Cardiology Chest x-ray: report reviewed, image reviewed Assessment and Plan Assessment: 1. Ascending aortic aneurysm, status post replacement with 32 mm Gelweave tube graft with distal malik-arch reconstruction under circulatory arrest 2. Aortic valve insufficiency, status post bioprosthetic aortic valve replacement 3. Coronary artery disease, status post 1 vessel CABG, CORRALES to the LAD 4. History of hypertension 5. Hyperlipidemia 6. Left internal carotid artery stenosis 50-79% 7. Depression 8. History of uterine and skin cancer 9. Osteoarthritis 10. Family history of heart disease 11. Preoperative nasal swab positive for MRSA 12. Intra-and postoperative acute blood loss anemia and coagulopathy 13. Postoperative controlled atrial fibrillation, currently AV paced with underlying lack of conduction Plan: 1. Continue low dose aspirin, statin. Will start Plavix today 2. Beta mary discontinued secondary to lack of intrinsic rhythm. Patient may need permanent pacemaker 3. Will transition to oral amiodarone. No anticoagulation 4. Wean O2 as tolerated. Encourage incentive spirometry use 10 times every hour while awake 5. Increase activity as tolerated. PT/OT/cardiac rehab consulted 6. Will monitor daily labs and x-rays. Electrolyte replacement per protocol. 7. Insulin management per primary care service 8. Pain control with current medication regimen. Avoid narcotics 9. Will discontinue mediastinal chest tube. Will split left and right pleural chest tubes 10. Keep Burton for another 24 hours for accurate intake and output 11. Zoloft added per patient's home regimen 12. More recommendations to follow Time with Patient: Greater than 30
[2019-06-03] MEDS: CLOPIDOGREL 75 MG TAB PO SCH (09:26)
[2019-06-03] MEDS: SERTRALINE 50 MG TAB PO SCH (09:26)
[2019-06-03] MEDS: FERROUS SULFATE 325 MG TAB PO SCH ×2 (09:26→16:31)
[2019-06-03] MEDS: ATORVASTATIN 40 MG TAB PO SCH (09:26)
[2019-06-03] MEDS: MULTIVITAMINS, THERA 1 EACH TAB PO SCH (09:26)
[2019-06-03] MEDS: ASPIRIN 81 MG PO SCH (09:26)
[2019-06-03] MEDS: ASCORBIC ACID 500 MG TAB PO SCH ×2 (09:27→16:30)
[2019-06-03] MEDS: AMIODARONE 200 MG TAB PO SCH ×3 (09:28→20:50)
[2019-06-03] MEDS: FUROSEMIDE 10 MG/ML 2 ML VIAL IV SCH ×3 (09:28→20:50)
[2019-06-03] MEDS: MUPIROCIN 2% OINT 22 GM TUBE NASAL SCH ×2 (09:28→20:56)
[2019-06-03] MEDS: LACTATED RINGERS 1,000 ML IV SCH ×2 (09:30→16:31)
--- NOTE | 2019-06-03 11:23 | P.PN ---
Subjective Progress Note Date: 06/03/19 83-year-old female who presented with shortness of breath. She underwent cardiac catheterization. This demonstrated moderate coronary artery disease in the right and LAD systems. There was a markedly dilated ascending aorta. There was 3-4+ aortic valvular insufficiency. Patient underwent a CAT scan demonstrating 5.6 cm ascending aortic aneurysm extending from the sinotubular junction into the arch. There was significant calcification of the distal ascending and arch aorta. Elective surgery was scheduled. The patient was brought into the operating room today and intraoperatively the patient was found to have The ascending aorta was markedly dilated. There was significant calcification of the distal ascending and arch aorta. The dilatation extended all the way to the proximal arch. There was a Bovie arch with common takeoff of the innominate artery and left carotid arteries. The arch distal to the takeoff of the Bovie arch was relatively normal. Aortic valve was tricuspid and minimally calcified. LAD had proximal calcifications. The CORRALES was a good conduit. There were enlarged anthracotic lymph nodes overlying the innominate artery. Based on this, the patient underwent a Replacement of ascending aorta with a 32 mm Gelweave tube graft with distal malik-arch reconstruction under circulatory arrest, replacement of aortic valve with 23 mm Avalus bovine pericardial prosthesis, CABG 1 with CORRALES to LAD, exclusion of the left atrial appendage with application of a 35 mm AtriCure clip, epi-aortic ultrasound, anterior mediastinal lymph node biopsy. The patient is currently postop in the intensive care unit. Intraoperatively the patient received a total of 6 units of fresh frozen plasma and 2 units of packed RBC. Currently I have him on assist control mode of ventilation. I put him on a rate of 20 with a tidal volume of 400 and FiO2 of 60% with a PEEP of 8. Cardiac output is 4.4 with an index of 2.4. PA pressures are 2514. He is on clevidipine drip for blood pressure control which is running at 4 mg an hour. He is well sedated with propofol. He is currently paced at the rate of 80. Producing urine output adequately. He has 2 mediastinal chest tubes and 2 pleural chest tube. Output from the mediastinal chest tube is been 600 mL and output from the left/right chest has been 60 mL. She is currently receiving platelets. Insulin drip at 4 units per hour.. Lactated ringer's at 50 mls per hour. Pacemaker wires in place. DDD. Currently A pacing V sensing. Mean arterial pressure 75. White count 4.7. Hemoglobin 8.0. Platelet count 108.000. She is well sedated with propofol and she is calm and comfortable. Adequate urine output. No other significant events otherwise postop. She has a right [place]-Jane catheter. The chest x-ray shows all of the chest tubes are in place. The patient is a right pleural and left pleural and 2 mediastinal chest tubes. On today's evaluation of 06/02/2019 the patient is doing well. She is hemodynamically stable. She is still intubated on a mechanical ventilator. Blood gases from this morning showed a component of mild metabolic and respiratory alkalosis. PH was 7.5 with a pCO2 of 36 and pO2 of 139. I dropped a respiratory rate down to 14. She was started tidal volume of 400 with an FiO2 of 50% and a PEEP of 5. Chest x-ray from today shows no major abnormalities. Chest tubes are all in a good location. She is producing adequate amount of urine output. Cardiac index is 2.5 with a pulmonary artery pressure 20/70. The output from the chest tube has been in the order of 20-30 mL an hour from the pleural and mediastinal chest tubes. Her hemoglobin today is at 6.4 and she got a unit of blood transfusion. For now, we are the process of weaning suspicion of the mechanical ventilator. Her weaning parameters showed a bottle Of 488, R SBI of 59, minute ventilation of 7 L. The patient is currently on a pressure support of 5 and a PEEP of 5 and she is able to generate tidal volumes of about 400 with a respiratory rate of 15. As such, she may be potentially extubated today. No other significant events overnight. She is off the pacemaker sensing rhythm is sinus rhythm in the low 60s. On today's evaluation of 06/03/2019 patient is postop day #2. The patient was weaned off the mechanical ventilator and she was yesterday without any major difficulties. Note that overnight, the patient developed atrial fibrillation. She went into a controlled rate atrial fibrillation. She was given amiodarone and subsequently she became more bradycardic and urine output dropped. She was given a dose of Lasix IV and she produced a total of 150 mL of urine output. Urine output is on the lower rates this morning. She is currently AV paced at the rate of 80. She denies having any chest pain. She denies having any shortness of breath. Her hemoglobin was 6.4 and she was given a unit of packed RBC and hemoglobin is up to 8.1. Subsequent hemoglobin from today is at 7.3. Chest tubes are in place. Chest x-ray from today shows some atelectatic changes in the left lung base. THE CHEST TUBES HAS BEEN APPROXIMATELY 60 ML OVERNIGHT AND 300 ML OVER THE PAST 24 HOURS. MEDIASTINAL CHEST TUBE AND 500 ML OVER THE PAST 24 HOURS FROM THE LEFT-SIDED CHEST TUBE. THERE IS NO EVIDENCE OF ANY AIR LEAK. Objective - Vital Signs Vital signs: Vital Signs Temp 98.0 F 06/03/19 08:00 Pulse 80 06/03/19 10:00 Resp 18 06/03/19 10:00 BP 100/48 06/03/19 10:00 Pulse Ox 94 L 06/03/19 10:00 Intake & Output 06/02/19 06/03/19 06/03/19 18:59 06:59 18:59 Intake Total 1524.571 816.602 564 Output Total 1205 820 152 Balance 319.571 -3.398 412 Weight 66.5 kg 66.5 kg Intake: IV 723.5 592 564 Amiodarone 300 mg In 250 Dextrose 5% in Water 250 ml @ 0.5 MG/MIN 25 mls/hr IV .Q10H PRN Rx#: [id number] Amiodarone Bolus 150 Cardiac Output 60 Lactated Ringers 1,000 ml 510 370 90 @ 20 mls/hr IV .Q24H DENISE Rx#:[id number] Nitroglycerin-D5w Pmx 50 1.5 mg In Dextrose/Water 1 250ml.bag @ 5 MCG/MIN 1.5 mls/hr IV .Q24H DENISE Rx#: [id number] Potassium Chloride 10 meq 200 In Water For Injection 1 100ml.bag @ 100 mls/hr IVPB Q1H DENISE Rx#: [id number] Pressure Bags 102 72 24 ceFAZolin 2 gm In Sodium 50 Chloride 0.9% 50 ml @ 100 mls/hr IVPB Q8HR DENISE Rx# :[id number] Intake, IV Titration 181.071 24.602 Amount Clevidipine Butyrate 25 57.933 mg In Empty Bag 1 bag @ 1 MG/HR 2 mls/hr IV .Q24H DENISE Rx#:[id number] Insulin Regular 100 unit 7.584 24.602 In Sodium Chloride 0.9% 100 ml @ Per Protocol IV .Q0M DENISE Rx#:[id number] Propofol 1,000 mg In 115.554 Empty Bag 1 bag @ Titrate IV .Q0M DENISE Rx#: [id number] Oral 250 200 Blood Product 310 Rc Pheresis 2 As3 Unit 310 [id number] Other 60 Output: Chest Tube Drainage 590 360 110 Bilateral Lateral Chest 360 230 70 Bilateral Mediastinal 230 130 40 Urine 615 460 42 Other: Voiding Method Indwelling Catheter Indwelling Catheter ABP, PAP, CO, CI - Last Documented Arterial Blood Pressure 98/36 Pulmonary Artery Pressure 17/3 Cardiac Output 3.9 Cardiac Index 2.5 - Exam - Constitutional General appearance: Present: cooperative, no acute distress - Respiratory Details: Lungs sounds diminished bilaterally with faint crackles in the left base. Respirations even, nonlabored. Currently on 3LPM NC with oxygen saturation 93%. Able to achieve 750 mL on her incentive spirometry. Mediastinal chest tube present to continuous wall suction, 60 mL serosanguineous drainage overnight, 300 mL the last 24 hours, no air leak present. Left pleural chest tube to cont inuous wall suction, 100 mL serosanguineous drainage overnight, 500 mL since surgery, positive intermittent air leak present. - Cardiovascular Details: S1, S2 present. AV paced on telemetry with lack of underlying conduction. Sternum stable. A/V epicardial pacemaker wires present, connected to generator, DDD mode with rate 80 bpm, extra ventricular wires connected to second generator with VVI mode and backup rate 56 bpm. Palpable peripheral pulses bilaterally. Trace generalized edema present. Right internal jugular Cordis, right radial arterial line present. Heart hugger in place with patient demonstrating appropriate use, antiembolism stockings, SCDs present. - Gastrointestinal Gastrointestinal Comment(s): Abdomen soft, nontender, nondistended. Active bowel sounds present 4 quadrants. Tolerating diet. Positive flatus - Genitourinary Genitourinary Comment(s): Burton present draining clear, yellow urine. Output 150 milliliters last night after IV Lasix and then dwindled down to 15-20 mL per hour. - Integumentary Integumentary Comment(s): Skin is warm and dry with evidence of good perfusion. Anterior chest incision well approximated and covered with dry intact dressing. - Neurologic Neurologic: Present: CNII-XII intact - Musculoskeletal Musculoskeletal: Present: strength equal bilaterally - Psychiatric - Labs CBC & Chem 7: 06/03/19 04:30 06/03/19 04:30 Labs: Abnormal Lab Results - Last 24 Hours (Table) 05/28/19 06/02/19 06/02/19 Range/Units 11:10 11:23 13:45 RBC (3.80-5.40) m/uL Hgb (11.4-16.0) gm/dL Hct (34.0-46.0) % Plt Count (150-450) k/uL Neutrophils # (1.3-7.7) k/uL Lymphocytes # (1.0-4.8) k/uL Sodium (137-145) mmol/L BUN (7-17) mg/dL Glucose (74-99) mg/dL POC Glucose (mg/dL) 105 H 129 H (75-99) mg/dL Calcium (8.4-10.2) mg/dL AST (14-36) U/L Total Protein (6.3-8.2) g/dL Albumin (3.5-5.0) g/dL Crossmatch See Detail 06/02/19 06/02/19 06/02/19 Range/Units 16:31 20:03 20:44 RBC (3.80-5.40) m/uL Hgb (11.4-16.0) gm/dL Hct (34.0-46.0) % Plt Count (150-450) k/uL Neutrophils # (1.3-7.7) k/uL Lymphocytes # (1.0-4.8) k/uL Sodium (137-145) mmol/L BUN (7-17) mg/dL Glucose (74-99) mg/dL POC Glucose (mg/dL) 147 H 332 H 221 H (75-99) mg/dL Calcium (8.4-10.2) mg/dL AST (14-36) U/L Total Protein (6.3-8.2) g/dL Albumin (3.5-5.0) g/dL Crossmatch 03/11/20 03/11/20 03/12/20 Range/Units 21:30 23:44 02:09 RBC (3.80-5.40) m/uL Hgb (11.4-16.0) gm/dL Hct (34.0-46.0) % Plt Count (150-450) k/uL Neutrophils # (1.3-7.7) k/uL Lymphocytes # (1.0-4.8) k/uL Sodium (137-145) mmol/L BUN (7-17) mg/dL Glucose (74-99) mg/dL POC Glucose (mg/dL) 163 H 110 H 181 H (75-99) mg/dL Calcium (8.4-10.2) mg/dL AST (14-36) U/L Total Protein (6.3-8.2) g/dL Albumin (3.5-5.0) g/dL Crossmatch 06/03/19 06/03/19 06/03/19 Range/Units 02:59 04:13 04:30 RBC 2.34 L (3.80-5.40) m/uL Hgb 7.3 L (11.4-16.0) gm/dL Hct 21.7 L (34.0-46.0) % Plt Count 100 L (150-450) k/uL Neutrophils # 8.7 H (1.3-7.7) k/uL Lymphocytes # 0.4 L (1.0-4.8) k/uL Sodium (137-145) mmol/L BUN (7-17) mg/dL Glucose (74-99) mg/dL POC Glucose (mg/dL) 166 H 137 H (75-99) mg/dL Calcium (8.4-10.2) mg/dL AST (14-36) U/L Total Protein (6.3-8.2) g/dL Albumin (3.5-5.0) g/dL Crossmatch 06/03/19 06/03/19 06/03/19 Range/Units 04:30 04:59 06:04 RBC (3.80-5.40) m/uL Hgb (11.4-16.0) gm/dL Hct (34.0-46.0) % Plt Count (150-450) k/uL Neutrophils # (1.3-7.7) k/uL Lymphocytes # (1.0-4.8) k/uL Sodium 136 L (137-145) mmol/L BUN 20 H (7-17) mg/dL Glucose 113 H (74-99) mg/dL POC Glucose (mg/dL) 135 H 116 H (75-99) mg/dL Calcium 8.3 L (8.4-10.2) mg/dL AST 64 H (14-36) U/L Total Protein 4.9 L (6.3-8.2) g/dL Albumin 2.9 L (3.5-5.0) g/dL Crossmatch 06/03/19 Range/Units 06:52 RBC (3.80-5.40) m/uL Hgb (11.4-16.0) gm/dL Hct (34.0-46.0) % Plt Count (150-450) k/uL Neutrophils # (1.3-7.7) k/uL Lymphocytes # (1.0-4.8) k/uL Sodium (137-145) mmol/L BUN (7-17) mg/dL Glucose (74-99) mg/dL POC Glucose (mg/dL) 130 H (75-99) mg/dL Calcium (8.4-10.2) mg/dL AST (14-36) U/L Total Protein (6.3-8.2) g/dL Albumin (3.5-5.0) g/dL Crossmatch Assessment and Plan Plan: 1 replacement of ascending aorta with a malik-arch reconstruction, aortic valve replacement with a bovine recovered a prosthesis and coronary artery bypass 1 with CORRALES to LAD and left atrial appendage clipping along with an anterior mediastinal lymph node biopsy. The patient is postop day #2 2 severe aortic regurgitation with a ascending aortic aneurysm and coronary artery disease 3 post thoracotomy and the patient is currently extubated and currently on nasal cannula. Chest x-ray from today shows some atelectatic changes and left lung b ase. Chest tubes are still in place and output has been noticed. 4 paroxysmal atrial fibrillation treated with amiodarone and currently his rhythm is the pacer rate of 80 5 hypertension currently off the clevidipine drip and the patient subsequently became hypotensive. Urine output has accordingly dropped also. 6 anemia, due to intraoperative blood loss, expected outcome surgery and the patient was transfused with a current hemoglobin is at 7.3. 7 coagulopathy post transfusion with a 6 units of fresh frozen plasma 8 chronic anxiety 9 osteoarthritis Plan IV albumin 5% for blood pressure urine output Keep the patient the pacer rate of 80 Oxygen by nasal cannula and continues incentive spirometer Keep the chest tube in place Status and the patient oral amiodarone Hold on the beta blockers due to the intrinsic rhythm Continue aspirin and start Plavix today Chest x-ray was reviewed Overall pulmonary status is stable We'll continue to follow. Critically care evaluation was done in the morning and 30 minutes. The case was discussed with cardiothoracic surgery. Time with Patient: Greater than 30
[2019-06-03 12:06] LABS: Glucose,Whole Blood 153 mg/dL (75-99)
[2019-06-03] MEDS: METOCLOPRAMIDE 5 MG/ML 2 ML VIAL IVP PRN (12:34)
[2019-06-03] MEDS: INSULIN ASPART (NovoLOG) 100 UNIT/ML VIAL SQ SCH ×3 (12:34→20:56)
[2019-06-03 18:24] LABS: Glucose,Whole Blood 113 mg/dL (75-99)
[2019-06-03] MEDS: SENNOSIDES-DOCUSATE SODIUM 1 EACH TAB PO SCH (20:50)
[2019-06-03] MEDS: ACETAMINOPHEN TAB 500 MG TAB PO PRN (20:50)
[2019-06-03] MEDS: MELATONIN 3 MG TABLET PO SCH (20:50)
[2019-06-03 20:53] LABS: Glucose,Whole Blood 123 mg/dL (75-99)
--- NOTE | 2019-06-03 22:05 | PN ---
PROGRESS NOTE DATE OF SERVICE: 06/03/2019 This 84-year-old woman who was admitted after aortic valve replacement as well as reconstruction of the aortic root is being closely monitored. No chest pain. No palpitations. No fever. The patient is being closely monitored in the ICU. The patient is complaining of occasional cough at this time. Blood sugars are well controlled. The chest x-ray was noted. Past medical history reviewed. PHYSICAL EXAMINATION: Patient is alert and oriented x2. Pulse is 80, blood pressure 118/60, respirations 23, temperature 97.7, pulse ox 91% on 6 L. HEENT: Conjunctivae normal. NECK: No jugular venous distention. CARDIOVASCULAR: S1, S2 muffled, especially in the bases. A few scattered rhonchi. No crackles. ABDOMEN: Soft, non-tender. LEGS: No edema. No swelling. NERVOUS SYSTEM: No focal deficits. LABS: WBC 9.6, hemoglobin 7.3. Sodium 136, albumin 2.9. ASSESSMENT: 1. Status post replacement of the ascending aorta with a graft to the distal malik- reconstruction as well as aortic valve replacement with a bovine pericardial prosthesis with coronary artery bypass graft x1, CORRALES to LAD. 2. Anemia, normocytic, as expected. 3. Elevated blood sugar; was on insulin drip. 4. History of coronary artery disease. 5. Hypertension. 6. Hyperlipidemia. 7. History of degenerative joint disease. 8. History of ascending aortic aneurysm and severe aortic regurgitation. 9. History of uterine cancer. 10.History of anxiety. 11.FULL CODE. RECOMMENDATIONS AND DISCUSSION: I recommend to continue current medications, continue with symptomatic treatment, continue with the incentive spirometry. Bronchodilators. Continue the rest of the medications. Monitor blood sugars closely. Further recommendations to follow. MMODL / IJN: [id number] /
[2019-06-04] MEDS: KETOROLAC 30 MG/ML 1 ML VIAL IVP SCH ×2 (00:19→06:36)
[2019-06-04] MEDS: HEPARIN SODIUM,PORCINE 5,000 UNIT/ML 1 ML VIAL SQ SCH ×4 (00:20→23:28)
[2019-06-04] MEDS: ACETAMINOPHEN TAB 500 MG TAB PO PRN ×3 (04:44→17:55)
[2019-06-04] MEDS: METOCLOPRAMIDE 5 MG/ML 2 ML VIAL IVP PRN (04:54)
[2019-06-04 04:58] LABS: Basophils % (A) 0 %; Eosinophils % (A) 0 %; HGB 7.7 gm/dL (11.4-16.0); Lymphocytes # (A) 0.6 k/uL (1.0-4.8); Lymphocytes % (A) 5 %; MCH 31.3 pg (25.0-35.0); MCHC 33.4 g/dL (31.0-37.0); MCV 93.6 fL (80.0-100.0); Mean Platelet Volume 9.4; Monocytes # (A) 0.6 k/uL (0-1.0); Monocytes % (A) 4 %; Neutrophils # (A) 11.4 k/uL (1.3-7.7); Neutrophils % (A) 90 %; Platelet Count 103 k/uL (150-450); RBC 2.46 m/uL (3.80-5.40); RDW 13.6 % (11.5-15.5); WBC 12.7 k/uL (3.8-10.6)
[2019-06-04 05:06] LABS: Ionized Calcium 4.9 mg/dL (4.5-5.3)
[2019-06-04 05:19] LABS: Calcium 8.2 mg/dL (8.4-10.2); Magnesium 2.3 mg/dL (1.6-2.3); Potassium 4.4 mmol/L (3.5-5.1); Total Bilirubin 0.6 mg/dL (0.2-1.3); Total Protein 5.1 g/dL (6.3-8.2)
[2019-06-04] MEDS: INSULIN ASPART (NovoLOG) 100 UNIT/ML VIAL SQ SCH ×4 (06:32→21:22)
[2019-06-04] MEDS: FERROUS SULFATE 325 MG TAB PO SCH ×2 (06:36→17:49)
[2019-06-04] MEDS: ASCORBIC ACID 500 MG TAB PO SCH ×2 (06:36→17:49)
[2019-06-04] MEDS: IPRATROPIUM-ALBUTEROL 3 ML NEB INHALATION SCH ×4 (07:09→20:01)
--- NOTE | 2019-06-04 07:42 | XR ---
EXAMINATION TYPE: XR chest 1V portable DATE OF EXAM: 06/04/2019 COMPARISON: 06/03/2019 HISTORY: Post cardiac surgery TECHNIQUE: Single frontal view of the chest is obtained. FINDINGS: Mediastinal drains have been removed. Bilateral thoracostomy tubes remain in place. Right- sided internal jugular central venous catheter sheath also remains in place. Patient rotation to the left shifts the mediastinum towards the left. Retrocardiac opacity is unchanged. Improved subcutaneou s emphysema. Diffuse osseous demineralization. IMPRESSION: Persistent retrocardiac opacity that may represent atelectasis and/or trace pleural effu keyur
--- NOTE | 2019-06-04 08:49 | P.PN ---
Subjective Progress Note Date: 06/04/19 83-year-old female who presented with shortness of breath. She underwent cardiac catheterization. This demonstrated moderate coronary artery disease in the right and LAD systems. There was a markedly dilated ascending aorta. There was 3-4+ aortic valvular insufficiency. Patient underwent a CAT scan demonstrating 5.6 cm ascending aortic aneurysm extending from the sinotubular junction into the arch. There was significant calcification of the distal ascending and arch aorta. Elective surgery was scheduled. The patient was brought into the operating room today and intraoperatively the patient was found to have The ascending aorta was markedly dilated. There was significant calcification of the distal ascending and arch aorta. The dilatation extended all the way to the proximal arch. There was a Bovie arch with common takeoff of the innominate artery and left carotid arteries. The arch distal to the takeoff of the Bovie arch was relatively normal. Aortic valve was tricuspid and minimally calcified. LAD had proximal calcifications. The CORRALES was a good conduit. There were enlarged anthracotic lymph nodes overlying the innominate artery. Based on this, the patient underwent a Replacement of ascending aorta with a 32 mm Gelweave tube graft with distal malik-arch reconstruction under circulatory arrest, replacement of aortic valve with 23 mm Avalus bovine pericardial prosthesis, CABG 1 with CORRALES to LAD, exclusion of the left atrial appendage with application of a 35 mm AtriCure clip, epi-aortic ultrasound, anterior mediastinal lymph node biopsy. The patient is currently postop in the intensive care unit. Intraoperatively the patient received a total of 6 units of fresh frozen plasma and 2 units of packed RBC. Currently I have him on assist control mode of ventilation. I put him on a rate of 20 with a tidal volume of 400 and FiO2 of 60% with a PEEP of 8. Cardiac output is 4.4 with an index of 2.4. PA pressures are 2514. He is on clevidipine drip for blood pressure control which is running at 4 mg an hour. He is well sedated with propofol. He is currently paced at the rate of 80. Producing urine output adequately. He has 2 mediastinal chest tubes and 2 pleural chest tube. Output from the mediastinal chest tube is been 600 mL and output from the left/right chest has been 60 mL. She is currently receiving platelets. Insulin drip at 4 units per hour.. Lactated ringer's at 50 mls per hour. Pacemaker wires in place. DDD. Currently A pacing V sensing. Mean arterial pressure 75. White count 4.7. Hemoglobin 8.0. Platelet count 108.000. She is well sedated with propofol and she is calm and comfortable. Adequate urine output. No other significant events otherwise postop. She has a right [place] catheter. The chest x-ray shows all of the chest tubes are in place. The patient is a right pleural and left pleural and 2 mediastinal chest tubes. On today's evaluation of 06/02/2019 the patient is doing well. She is hemodynamically stable. She is still intubated on a mechanical ventilator. Blood gases from this morning showed a component of mild metabolic and respiratory alkalosis. PH was 7.5 with a pCO2 of 36 and pO2 of 139. I dropped a respiratory rate down to 14. She was started tidal volume of 400 with an FiO2 of 50% and a PEEP of 5. Chest x-ray from today shows no major abnormalities. Chest tubes are all in a good location. She is producing adequate amount of urine output. Cardiac index is 2.5 with a pulmonary artery pressure 20/70. The output from the chest tube has been in the order of 20-30 mL an hour from the pleural and mediastinal chest tubes. Her hemoglobin today is at 6.4 and she got a unit of blood transfusion. For now, we are the process of weaning suspicion of the mechanical ventilator. Her weaning parameters showed a bottle Of 488, R SBI of 59, minute ventilation of 7 L. The patient is currently on a pressure support of 5 and a PEEP of 5 and she is able to generate tidal volumes of about 400 with a respiratory rate of 15. As such, she may be potentially extubated today. No other significant events overnight. She is off the pacemaker sensing rhythm is sinus rhythm in the low 60s. On today's evaluation of 06/03/2019 patient is postop day #2. The patient was weaned off the mechanical ventilator and she was yesterday without any major difficulties. Note that overnight, the patient developed atrial fibrillation. She went into a controlled rate atrial fibrillation. She was given amiodarone and subsequently she became more bradycardic and urine output dropped. She was given a dose of Lasix IV and she produced a total of 150 mL of urine output. Urine output is on the lower rates this morning. She is currently AV paced at the rate of 80. She denies having any chest pain. She denies having any shortness of breath. Her hemoglobin was 6.4 and she was given a unit of packed RBC and hemoglobin is up to 8.1. Subsequent hemoglobin from today is at 7.3. Chest tubes are in place. Chest x-ray from today shows some atelectatic changes in the left lung base. THE CHEST TUBES HAS BEEN APPROXIMATELY 60 ML OVERNIGHT AND 300 ML OVER THE PAST 24 HOURS. MEDIASTINAL CHEST TUBE AND 500 ML OVER THE PAST 24 HOURS FROM THE LEFT-SIDED CHEST TUBE. THERE IS NO EVIDENCE OF ANY AIR LEAK. On 06/04/2019 the patient is postop day #3. She is currently on oxygen at 4 L. Chest x-ray shows some atelectatic change in the left lung base. There is a right and left pleural chest tube. The mediastinal chest tubes have been removed. Output from the right chest tube is 200 over the past 24 hours. Output from the left chest tube is 30 mL over the past 24 hours. Her blood p ressure is improved. She is producing adequate amount of urine output. She is on Lasix 10 mg IV every 12 hours. Her underlying intrinsic rhythm is sinus at the rate of 70. She has some gaseous distention in her abdomen. Passing flatus. No bowel movements yet. No nausea. No vomiting. No diarrhea. No altered mentation. Hemoglobin stable at 7.7. No other significant events overnight for now. Renal function stable with a creatinine of 1.07. Objective - Vital Signs Vital signs: Vital Signs Temp 98.4 F 06/04/19 04:00 Pulse 86 06/04/19 07:18 Resp 10 L 06/04/19 07:00 BP 145/70 06/04/19 07:00 Pulse Ox 94 L 06/04/19 06:00 Intake & Output 06/03/19 06/04/19 06/04/19 18:59 06:59 18:59 Intake Total 852 330 30 Output Total 402 715 208 Balance 450 385 -178 Weight 66.5 kg 66.7 kg Intake: IV 852 330 30 Amiodarone 300 mg In 250 Dextrose 5% in Water 250 ml @ 0.5 MG/MIN 25 mls/hr IV .Q10H PRN Rx#: [id number] Lactated Ringers 1,000 ml 330 330 30 @ 20 mls/hr IV .Q24H DENISE Rx#:[id number] Potassium Chloride 10 meq 200 In Water For Injection 1 100ml.bag @ 100 mls/hr IVPB Q1H [facility] Rx#: [id number] Pressure Bags 72 Output: Chest Tube Drainage 130 45 133 Bilateral Lateral Chest 70 Bilateral Mediastinal 40 Chest Tube Left 0 0 30 Right Chest Tube 20 45 103 Urine 272 670 75 Other: Voiding Method Indwelling Catheter Indwelling Catheter ABP, PAP, CO, CI - Last Documented Arterial Blood Pressure 98/36 Pulmonary Artery Pressure 17/3 Cardiac Output 3.9 Cardiac Index 2.5 - Exam - Constitutional General appearance: Present: cooperative, no acute distress - Respiratory Details: Lungs sounds diminished bilaterally with faint crackles in the left base. Respirations even, nonlabored. Currently on 4 liters per minute and the patient has a right pleural and left pleural chest tubes and output has been 24 hour output has been noted and mentioned in my dictation note. - Cardiovascular Details: S1, S2 present. AV paced on telemetry with lack of underlying conduction. Sternum stable. A/V epicardial pacemaker wires present, connected to generator, and the patient is interested greater than of sinus with a rate of mid 70s., extra ventricular wires connected to second generator with VVI mode and backup rate 50 bpm. Palpable peripheral pulses bilaterally. Trace generalized edema present. Right internal jugular Cordis, right radial arterial line present. Heart hugger in place with patient demonstrating appropriate use, antiembolism stockings, SCDs present. - Gastrointestinal Gastrointestinal Comment(s): Abdomen soft, nontender, nondistended. Active bowel sounds present 4 quadrants. Tolerating diet. Positive flatus - Genitourinary Genitourinary Comment(s): Burton present draining clear, yellow urine. 60-70 mL an hour of urine output.. - Integumentary Integumentary Comment(s): Skin is warm and dry with evidence of good perfusion. Anterior chest incision well approximated and covered with dry intact dressing. - Neurologic Neurologic: Present: CNII-XII intact - Musculoskeletal Musculoskeletal: Present: strength equal bilaterally - Psychiatric, no anxiety, no depression - Labs CBC & Chem 7: 06/04/19 04:50 06/04/19 04:50 Labs: Abnormal Lab Results - Last 24 Hours (Table) 06/03/19 06/03/19 06/03/19 Range/Units 12:05 18:24 20:52 WBC (3.8-10.6) k/uL RBC (3.80-5.40) m/uL Hgb (11.4-16.0) gm/dL Hct (34.0-46.0) % Plt Count (150-450) k/uL Neutrophils # (1.3-7.7) k/uL Lymphocytes # (1.0-4.8) k/uL Sodium (137-145) mmol/L BUN (7-17) mg/dL Creatinine (0.52-1.04) mg/dL Glucose (74-99) mg/dL POC Glucose (mg/dL) 153 H 113 H 123 H (75-99) mg/dL Calcium (8.4-10.2) mg/dL AST (14-36) U/L Total Protein (6.3-8.2) g/dL Albumin (3.5-5.0) g/dL 06/04/19 06/04/19 Range/Units 04:50 04:50 WBC 12.7 H (3.8-10.6) k/uL RBC 2.46 L (3.80-5.40) m/uL Hgb 7.7 L (11.4-16.0) gm/dL Hct 23.0 L (34.0-46.0) % Plt Count 103 L (150-450) k/uL Neutrophils # 11.4 H (1.3-7.7) k/uL Lymphocytes # 0.6 L (1.0-4.8) k/uL Sodium 134 L (137-145) mmol/L BUN 33 H (7-17) mg/dL Creatinine 1.07 H (0.52-1.04) mg/dL Glucose 119 H (74-99) mg/dL POC Glucose (mg/dL) (75-99) mg/dL Calcium 8.2 L (8.4-10.2) mg/dL AST 54 H (14-36) U/L Total Protein 5.1 L (6.3-8.2) g/dL Albumin 3.0 L (3.5-5.0) g/dL Assessment and Plan Plan: 1 replacement of ascending aorta with a malik-arch reconstruction, aortic valve replacement with a bovine recovered a prosthesis and coronary artery bypass 1 with CORRALES to LAD and left atrial appendage clipping along with an anterior mediastinal lymph node biopsy. The patient is postop day #3 2 severe aortic regurgitation with a ascending aortic aneurysm and coronary artery disease 3 post thoracotomy and the patient is currently extubated and currently on nasal cannula. Chest x-ray from today shows some atelectatic changes and left lung base. Chest tubes are still in place and output has been noticed. On today's chest x-ray there is no major change in the chest x-ray finding. Atelectatic changes and left lung base. The patient is pulling approximately 500 on the incentive spirometer. Ultrasound the chest tube has been noted. 4 paroxysmal atrial fibrillation treated with amiodarone and currently his rhythm is sinus and the mid 70s with a backup VVI at the rate of 50 5 hypertension currently off the clevidipine drip and the patient subsequently became hypotensive. Urine output has accordingly dropped also. 6 anemia, due to intraoperative blood loss, expected outcome surgery and the patient was transfused with a current hemoglobin is at 7.7. 7 coagulopathy post transfusion with a 6 units of fresh frozen plasma 8 chronic anxiety 9 osteoarthritis Plan Enteral diuresis Incentive spirometer Monitor the output from the chest tube Oxygen at 4 L Chest x-ray reviewed Aspirin and Plavix Oral amiodarone 400 mg by mouth twice a day in the rhythm is sinus We'll continue to follow, chest tube management per cardiothoracic surgery
[2019-06-04] MEDS ORDERED: PANTOPRAZOLE 40 MG/10 ML VIAL IVP SCH (09:00)
--- NOTE | 2019-06-04 09:36 | PN ---
PROGRESS NOTE Mrs. Najera is an 84-year-old female who underwent aortic valve replacement and coronary artery bypass grafting and repair of the ascending aorta. She had episode of asystole postoperatively requiring temporary pacing. Subsequently, in the next 24 hours, she was in sinus mechanism, but she had an episode of atrial fibrillation requiring amiodarone and she became very bradycardic. She is paced at this time at 100%. She has mild dyspnea. No chest pain. She denies any dizziness or palpitation. She denies any nausea. She continues to be at this time on amiodarone 400 mg orally twice a day, aspirin once a day, Lipitor 40 mg daily, Plavix 75 mg daily, and she received IV furosemide. Her beta mary is on hold at this point. PHYSICAL EXAMINATION: Blood pressure running in the 130s to 140s with the heart rate paced at 80. LUNGS: A few crackles at the bases. HEART: Regular rate and rhythm. S1, S2. No S3 with a systolic murmur. No diastolic murmur. ABDOMEN: Soft, nontender. EXTREMITIES: No edema. LAB DATA: Lab data revealed BUN and creatinine 33 and 1.07. Potassium 4.4. Hemoglobin 7.7 that has been stable. IMPRESSION: 1. Status post aortic valve replacement, coronary artery bypass grafting and repair of the ascending aorta. 2. Episode of asystole paced at this time. Patient has recovered within the first 24 hours. 3. Paroxysmal atrial fibrillation, in sinus mechanism. 4. Postoperative anemia. RECOMMENDATION: We will continue present therapy. Will follow her rhythm. If she has persistent severe bradycardia and asystole then a permanent pacemaker implantation will be needed. In the meantime, will continue incentive spirometry, increase her level of activity and depending on her progress, further recommendation will be made. MMODL / IJN: [id number] /
--- NOTE | 2019-06-04 10:06 | P.PN ---
Subjective Progress Note Date: 06/04/19 Principal diagnosis: Ascending aortic aneurysm, aortic valve insufficiency, coronary artery disease. Past medical history significant for hypertension, hyperlipidemia, left internal carotid artery stenosis 50-79%, depression, uterine and skin cancer within the last 5 years, osteoarthritis, and family history of heart disease. Preoperative nasal swab positive for MRSA, treated. POD #3 replacement of ascending aorta with 32 mm Gelweave tube graft with distal malik-arch reconstruction under circulatory arrest, replacement of aortic valve with 23 mm Avalus bovine pericardial bioprosthesis, coronary artery bypass grafting 1 with the left internal mammary artery to the left anterior descending coronary artery, exclusion of the left atrial appendage with application of a 35 mm AtriCure clip, epi-aortic ultrasound, and anterior mediastinal lymph node biopsy. Intraoperative and postoperative acute blood loss anemia and coagulopathy, expected outcome and given hemodilution, cardiopulmonary bypass pump, and circulatory arrest, status post transfusion. Postoperative controlled atrial fibrillation, unexpected. The patient is sitting up to the bedside chair in the intensive care unit. She is in no acute distress. He currently denies any complaints of surgical type p ain or shortness of breath. The patient does report that she is having some abdominal discomfort and feels like she has to have a bowel movement. She is passing gas and belching. Her mediastinal chest tubes were removed yesterday. She remains with atrial and ventricular epicardial pacemaker wires in place with the pacemaker generator currently on a VVI backup of 50 and her intrinsic rhythm showing on the bedside monitor normal sinus rhythm with a bundle branch block heart rate 76. Oxygen saturations are 94% on 4 L nasal cannula. She is achieving 750 mL on her incentive spirometry with encouragement. She remains with left and right pleural chest tubes in place draining thin serosanguineous drainage. No air leak is present. Right pleural chest tube put out 100 mL in the last 8 hours, 210 mL output in the last 24 hours. The left pleural chest tube drained 30 mL output in the last 24 hours. Burton catheter remains in place for accurate I&O draining clear yellow urine with 550 mL output the last 8 hours. She remains hemodynamically stable and is currently on no inotropic or pressor support, she has been afebrile for the last 24 hours. Objective - Vital Signs Vital signs: Vital Signs Temp 98.4 F 06/04/19 04:00 Pulse 86 06/04/19 07:18 Resp 10 L 06/04/19 07:00 BP 145/70 06/04/19 07:00 Pulse Ox 94 L 06/04/19 06:00 Intake & Output 06/03/19 06/04/19 06/04/19 18:59 06:59 18:59 Intake Total 852 330 30 Output Total 402 715 208 Balance 450 -385 -178 Weight 66.5 kg 66.7 kg Intake: IV 852 330 30 Amiodarone 300 mg In 250 Dextrose 5% in Water 250 ml @ 0.5 MG/MIN 25 mls/hr IV .Q10H PRN Rx#: [id number] Lactated Ringers 1,000 ml 330 330 30 @ 20 mls/hr IV .Q24H [facility] Rx#:[id number] Potassium Chloride 10 meq 200 In Water For Injection 1 100ml.bag @ 100 mls/hr IVPB Q1H [facility] Rx#: [id number] Pressure Bags 72 Output: Chest Tube Drainage 130 45 133 Bilateral Lateral Chest 70 Bilateral Mediastinal 40 Chest Tube Left 0 0 30 Right Chest Tube 20 45 103 Urine 272 670 75 Other: Voiding Method Indwelling Catheter Indwelling Catheter ABP, PAP, CO, CI - Last Documented Arterial Blood Pressure 98/36 Pulmonary Artery Pressure 17/3 Cardiac Output 3.9 Cardiac Index 2.5 - Constitutional General appearance: Present: cooperative, no acute distress - Respiratory Details: Lung sounds diminished to bilateral bases with some few scattered crackles. Respirations are symmetrical and nonlabored. Oxygen saturation are 94% on 4 L nasal cannula. Achieving 750 mL on her incentive spirometry. Left and right pleural chest tubes remain in place to low continuous wall suction -20 cm H2O. No air leak is present. Draining thin serosanguineous drainage. - Cardiovascular Details: Regular rhythm and rate. S1 and S2 present, negative for S3, gallop or murmur. Sternum is stable. Atrial and ventricular epicardial pacemaker wires are in place and connected to a backup pacemaker generator with a VVI 50. No edema present. Knee-high AMANDA hose and sequential compression devices in place to bilateral lower extremities. Heart hugger is in place and she is demonstrating appropriate use. - Gastrointestinal Gastrointestinal Comment(s): Abdomen is soft, nontender and nondistended. Active bowel sounds present in all 4 abdominal quadrants. Passing flatus. Tolerating oral intake. No guarding or rigidity. - Genitourinary Genitourinary Comment(s): Burton catheter for accurate I&O. Draining clear yellow urine with 550 mL output in the last 8 hours. - Integumentary Integumentary Comment(s): Skin is warm and dry. No clubbing or cyanosis is present. Midline sternal incision is clean, dry and approximated. No drainage or redness is present. Dr delgado is clean and intact. - Neurologic Neurologic Comment(s): No neurological deficits. Neurologic: Present: CNII-XII intact - Musculoskeletal Musculoskeletal: Present: gait normal, generalized weakness, strength equal bilaterally - Psychiatric Psychiatric: Present: A&O x's 3, appropriate affect, intact judgment & insight - Allied health notes Allied health notes reviewed: nursing - Labs CBC & Chem 7: 06/04/19 04:50 06/04/19 04:50 Labs: Abnormal Lab Results - Last 24 Hours (Table) 06/03/19 06/03/19 06/03/19 Range/Units 12:05 18:24 20:52 WBC (3.8-10.6) k/uL RBC (3.80-5.40) m/uL Hgb (11.4-16.0) gm/dL Hct (34.0-46.0) % Plt Count (150-450) k/uL Neutrophils # (1.3-7.7) k/uL Lymphocytes # (1.0-4.8) k/uL Sodium (137-145) mmol/L BUN (7-17) mg/dL Creatinine (0.52-1.04) mg/dL Glucose (74-99) mg/dL POC Glucose (mg/dL) 153 H 113 H 123 H (75-99) mg/dL Calcium (8.4-10.2) mg/dL AST (14-36) U/L Total Protein (6.3-8.2) g/dL Albumin (3.5-5.0) g/dL 06/04/19 06/04/19 Range/Units 04:50 04:50 WBC 12.7 H (3.8-10.6) k/uL RBC 2.46 L (3.80-5.40) m/uL Hgb 7.7 L (11.4-16.0) gm/dL Hct 23.0 L (34.0-46.0) % Plt Count 103 L (150-450) k/uL Neutrophils # 11.4 H (1.3-7.7) k/uL Lymphocytes # 0.6 L (1.0-4.8) k/uL Sodium 134 L (137-145) mmol/L BUN 33 H (7-17) mg/dL Creatinine 1.07 H (0.52-1.04) mg/dL Glucose 119 H (74-99) mg/dL POC Glucose (mg/dL) (75-99) mg/dL Calcium 8.2 L (8.4-10.2) mg/dL AST 54 H (14-36) U/L Total Protein 5.1 L (6.3-8.2) g/dL Albumin 3.0 L (3.5-5.0) g/dL - Imaging and Cardiology Chest x-ray: report reviewed, image reviewed Assessment and Plan Assessment: 1. Ascending aortic aneurysm, status post replacement with 32 mm Gelweave tube graft with distal malik-arch reconstruction under circulatory arrest 2. Aortic valve insufficiency, status post bioprosthetic aortic valve replacement 3. Coronary artery disease, status post 1 vessel CABG, CORRALES to the LAD 4. History of hypertension 5. Hyperlipidemia 6. Left internal carotid artery stenosis 50-79% 7. Depression 8. History of uterine and skin cancer 9. Osteoarthritis 10. Family history of heart disease 11. Preoperative nasal swab positive for MRSA, treated 12. Intraoperative and postoperative acute blood loss anemia and coagulopathy 13. Postoperative controlled atrial fibrillation, currently AV paced with underlying lack of conduction Plan: 1. Continue low dose aspirin, Plavix and statin. 2. Atrial and ventricular epicardial pacemaker wires in place and connected to a backup bedside pacemaker generator at a VVI 50. 3. Continue amiodarone for atrial fibrillation prophylaxis. No anticoagulation. 4. Wean O2 as tolerated. Encourage incentive spirometry use 10 times every hour while awake. 5. Increase activity as tolerated. PT/OT/cardiac rehab following. 6. Will monitor daily labs and chest x-rays. Electrolyte replacement per protocol. No transfusions at this time. 7. Insulin management per primary care service. 8. Pain control with current medication regimen. Continue to avoid narcotics. Discontinue Toradol as her BUN and creatinine are trending up. 9. Will discontinue left pleural chest tube. Keep right pleural chest tube in place for now to low continuous wall suction -20 cm H2O. 10. Discontinue Burton catheter. 11. Continue Zoloft per patient's home medication regimen. 12. Metoprolol 12.5 mg by mouth twice a day start today. 13. More recommendations to follow based on patient's clinical course. Time with Patient: Greater than 30
[2019-06-04] MEDS: FUROSEMIDE 10 MG/ML 2 ML VIAL IV SCH (10:10)
[2019-06-04] MEDS: ATORVASTATIN 40 MG TAB PO SCH (10:10)
[2019-06-04] MEDS: CLOPIDOGREL 75 MG TAB PO SCH (10:10)
[2019-06-04] MEDS: ASPIRIN 81 MG PO SCH (10:10)
[2019-06-04] MEDS: SERTRALINE 50 MG TAB PO SCH (10:11)
[2019-06-04] MEDS: AMIODARONE 200 MG TAB PO SCH ×2 (10:11→21:37)
[2019-06-04] MEDS: MUPIROCIN 2% OINT 22 GM TUBE NASAL SCH ×2 (10:18→21:44)
[2019-06-04] MEDS: LIDOCAINE 5% PATCH TOPICAL SCH (10:23)
[2019-06-04] MEDS: METOPROLOL TARTRATE 12.5 MG TAB PO SCH ×2 (10:24→22:03)
[2019-06-04] MEDS: MULTIVITAMINS, THERA 1 EACH TAB PO SCH (10:24)
[2019-06-04 12:47] LABS: Glucose,Whole Blood 132 mg/dL (75-99)
[2019-06-04 17:13] LABS: Glucose,Whole Blood 132 mg/dL (75-99)
[2019-06-04] MEDS: LACTATED RINGERS 1,000 ML IV SCH (17:50)
[2019-06-04] MEDS: ONDANSETRON 4 MG/2 ML VIAL IVP PRN (18:37)
[2019-06-04 21:05] LABS: Glucose,Whole Blood 126 mg/dL (75-99)
--- NOTE | 2019-06-04 21:09 | PN ---
PROGRESS NOTE DATE OF SERVICE: 06/04/2019 This 84 -year-old woman was admitted after aortic valve replacement, aortic graft and aortic root replacement, is being closely monitored. The patient only had [address] Blood sugar has been monitored. Only one value was 180 during the past 24 hours. The patient does not have any personal history of diabetes mellitus. The patient had family history of diabetes. No chest pain. No palpitations. No fever. PHYSICAL EXAMINATION: Alert and oriented times three. Pulse 62. Blood pressure 104/59, respiration 23, temperature normal. Pulse ox 100 percent on 4 L. HEENT: Conjunctivae normal. NECK: No JVD. CARDIOVASCULAR: S1, S2 muffled. RESPIRATIONS: Breath sounds diminished in the bases. A few scattered rhonchi. ABDOMEN soft. Nervous system: No focal deficits. LABS: LFTs 12.2, hemoglobin 7.7 and creatinine is 1.77. ASSESSMENT: 1. Status post replacement of ascending aorta as well as graft to distal malik reconstructed as well as aortic valve replacement with bovine pericardial prosthesis with CABG x1, CORRALES to LAD. 2. Anemia, normocytic as expected postoperatively. 3. Elevated blood sugar was on insulin drip, improving. 4. History of coronary artery disease. 5. Hypertension. 6. Hyperlipidemia. 7. History of degenerative joint disease. 8. History of ascending aortic aneurysm, severe aortic regurgitation. 9. History of uterine cancer. 10.History of anxiety. 11.FULL CODE. RECOMMENDATIONS AND DISCUSSION: Recommend to continue current medications, management and symptomatic treatment. Incentive spirometry. Continue to monitor Accu-Cheks a.c. and at bedtime. Cover for the screen. Otherwise, continue to monitor. Further recommendations to follow. MMODL / IJN: [id number] /
[2019-06-04] MEDS: MELATONIN 3 MG TABLET PO SCH (21:37)
[2019-06-04] MEDS: SENNOSIDES-DOCUSATE SODIUM 1 EACH TAB PO SCH (21:37)
[2019-06-05] MEDS: ACETAMINOPHEN TAB 500 MG TAB PO PRN ×2 (01:04→20:17)
[2019-06-05 05:31] LABS: Basophils % (A) 0 %; Eosinophils % (A) 0 %; HCT 21.3 % (34.0-46.0); HGB 7.1 gm/dL (11.4-16.0); Lymphocytes # (A) 0.5 k/uL (1.0-4.8); Lymphocytes % (A) 6 %; MCH 31.6 pg (25.0-35.0); MCHC 33.5 g/dL (31.0-37.0); MCV 94.3 fL (80.0-100.0); Mean Platelet Volume 9.4; Monocytes # (A) 0.4 k/uL (0-1.0); Monocytes % (A) 5 %; Neutrophils # (A) 7.9 k/uL (1.3-7.7); Neutrophils % (A) 88 %; Platelet Count 103 k/uL (150-450); RBC 2.26 m/uL (3.80-5.40); RDW 13.9 % (11.5-15.5); WBC 8.9 k/uL (3.8-10.6)
[2019-06-05 05:46] LABS: Albumin 2.5 g/dL (3.5-5.0); Calcium 8.1 mg/dL (8.4-10.2); Magnesium 2.5 mg/dL (1.6-2.3); Potassium 4.2 mmol/L (3.5-5.1); Total Bilirubin 0.6 mg/dL (0.2-1.3); Total Protein 4.4 g/dL (6.3-8.2)
[2019-06-05 06:55] LABS: Glucose,Whole Blood 125 mg/dL (75-99)
[2019-06-05] MEDS: INSULIN ASPART (NovoLOG) 100 UNIT/ML VIAL SQ SCH ×4 (06:58→20:29)
[2019-06-05] MEDS: ASCORBIC ACID 500 MG TAB PO SCH ×2 (07:00→18:00)
[2019-06-05] MEDS: PANTOPRAZOLE 40 MG TABLET PO SCH (07:00)
[2019-06-05] MEDS: FERROUS SULFATE 325 MG TAB PO SCH ×2 (07:00→18:00)
[2019-06-05] MEDS: IPRATROPIUM-ALBUTEROL 3 ML NEB INHALATION SCH ×4 (07:14→20:12)
[2019-06-05] MEDS ORDERED: SENNOSIDES-DOCUSATE SODIUM 1 EACH TAB PO PRN (07:22)
--- NOTE | 2019-06-05 08:06 | XR ---
EXAMINATION TYPE: XR chest 1V portable DATE OF EXAM: 06/05/2019 COMPARISON: 06/04/2019 HISTORY: Status post cardiac surgery. TECHNIQUE: Single frontal view of the chest is obtained. FINDINGS: Redemonstration of a retrocardiac opacity. Shifting of the mediastinum to the left seconda ry to patient rotation. Right-sided thoracostomy tube remains with no residual pneumothorax visualize d. Scattered areas of right-sided subsegmental linear atelectasis. Diffuse osseous demineralization. IMPRESSION: Persistent and unchanged retrocardiac opacity that may represent pneumonia or pleural ef fusion and atelectasis. Scattered subsegmental right-sided atelectasis.
[2019-06-05] MEDS: ATORVASTATIN 40 MG TAB PO SCH (08:25)
[2019-06-05] MEDS: AMIODARONE 200 MG TAB PO SCH ×2 (08:25→20:17)
[2019-06-05] MEDS: ASPIRIN 81 MG PO SCH (08:25)
[2019-06-05] MEDS: CLOPIDOGREL 75 MG TAB PO SCH (08:25)
[2019-06-05] MEDS: HEPARIN SODIUM,PORCINE 5,000 UNIT/ML 1 ML VIAL SQ SCH ×2 (08:30→18:00)
[2019-06-05] MEDS: METOPROLOL TARTRATE 12.5 MG TAB PO SCH ×2 (08:30→20:28)
[2019-06-05] MEDS: MULTIVITAMINS, THERA 1 EACH TAB PO SCH (08:30)
[2019-06-05] MEDS: MUPIROCIN 2% OINT 22 GM TUBE NASAL SCH ×2 (08:32→20:29)
[2019-06-05] MEDS: SERTRALINE 50 MG TAB PO SCH (08:32)
--- NOTE | 2019-06-05 11:53 | PN ---
PROGRESS NOTE The patient's clinical panels, lab tests reviewed. This patient is status post aortic valve replacement and repair of the ascending aorta. The patient is sitting comfortably in the bed. Vital signs remained stable. Patient currently is in normal sinus rhythm. Patient has developed new bundle branch block. Blood pressure is 125/59 mmHg. First and second heart sounds are normal. Lungs are fairly clear to auscultation and percussion. Patient's medications are reviewed. Continue the current medications. If the patient has any evidence of a high-degree AV block, she will be a candidate for permanent pacemaker. MMODL / IJN: [id number] /
[2019-06-05] MEDS: FUROSEMIDE 10 MG/ML 2 ML VIAL IV SCH ×2 (12:04→20:15)
[2019-06-05 12:10] LABS: Glucose,Whole Blood 128 mg/dL (75-99)
[2019-06-05] MEDS: ONDANSETRON 4 MG/2 ML VIAL IVP PRN ×2 (12:16→20:14)
[2019-06-05] MEDS ORDERED: CALCIUM GLUCONATE 1 GM in SODIUM CHLORIDE 0.9% 100 ML IVPB ONE (12:22)
[2019-06-05] MEDS: LACTATED RINGERS 1,000 ML IV SCH (12:41)
--- NOTE | 2019-06-05 12:57 | P.PN ---
Subjective Progress Note Date: 06/05/19 Principal diagnosis: Ascending aortic aneurysm, aortic valve insufficiency, coronary artery disease. Previous medical history of hypertension, hyperlipidemia, left internal carotid artery stenosis 50-79%, depression, uterine and skin cancer within the last 5 years, osteoarthritis, and family history of heart disease. Preoperative nasal swab positive for MRSA. POD #4 replacement of ascending aorta with 32 mm Gelweave tube graft with distal malik-arch reconstruction under circulatory arrest, replacement of aortic valve with 23 mm Avalus bovine pericardial bioprosthesis, coronary artery bypass grafting 1 with the left internal mammary artery to the left anterior descendin g artery, exclusion of the left atrial appendage with application of a 35 mm AtriCure clip, epi-aortic ultrasound, anterior mediastinal lymph node biopsy. Intra-and postoperative acute blood loss anemia and coagulopathy, expected outcome and given hemodilution, cardiopulmonary bypass pump, and circulatory arrest, status post transfusion Postoperative controlled atrial fibrillation, unexpected The patient is currently sitting up in bed in the ICU in no acute distress. She states post surgical pain is controlled on current medication, denies shortness of breath. She remains in normal sinus rhythm and hemodynamically stable, no further afib. No new concerns Objective - Vital Signs Vital signs: Vital Signs Temp 98.0 F 06/05/19 04:00 Pulse 77 06/05/19 11:15 Resp 22 06/05/19 09:00 BP 157/66 06/05/19 09:00 Pulse Ox 100 06/05/19 09:00 Intake & Output 06/04/19 06/05/19 06/05/19 18:59 06:59 18:59 Intake Total 360 590 60 Output Total 1283 400 130 Balance -923 190 -70 Weight 66.7 kg 63.9 kg Intake: IV 360 350 60 Lactated Ringers 1,000 ml 360 350 60 @ 20 mls/hr IV .Q24H [facility] Rx#:[id number] Oral 240 Output: Chest Tube Drainage 283 130 Chest Tube Left 60 Right Chest Tube 223 130 Urine 1000 400 Other: Voiding Method Indwelling Catheter Bedpan Bedpan # Voids 1 0 1 # Bowel Movements 3 1 1 ABP, PAP, CO, CI - Last Documented Arterial Blood Pressure 98/36 Pulmonary Artery Pressure 17/3 Cardiac Output 3.9 Cardiac Index 2.5 - Constitutional General appearance: Present: cooperative, no acute distress - Respiratory Details: Lungs sounds diminished bilaterally. Respirations even, nonlabored. Currently on 3LPM NC with oxygen saturation 95%. Able to achieve 750 mL on her incentive spirometry. Right pleural chest tube to continuous wall suction, 70 mL serosanguineous drainage overnight, 230 mL in the last 24 hours, no air leak present. - Cardiovascular Details: S1, S2 present. Regular rate and rhythm, normal sinus rhythm on telemetry. Mitchel rnum stable. A/V epicardial pacemaker wires present, connected to generator, VVI mode with backup rate 50 bpm. Palpable peripheral pulses bilaterally. Trace generalized edema present. Right internal jugular Cordis present. Heart hugger in place with patient demonstrating appropriate use, antiembolism stockings, SCDs present. - Gastrointestinal Gastrointestinal Comment(s): Abdomen soft, nontender, nondistended. Active bowel sounds present 4 quadran ts. Tolerating diet. Positive bowel movement - Genitourinary Genitourinary Comment(s): Burton discontinued yesterday, patient continues to void clear yellow urine - Integumentary Integumentary Comment(s): Skin is warm and dry with evidence of good perfusion. Anterior chest incision well approximated and covered with dry intact dressing. - Neurologic Neurologic: Present: CNII-XII intact - Musculoskeletal Musculoskeletal: Present: generalized weakness, strength equal bilaterally - Psychiatric Psychiatric: Present: A&O x's 3, appropriate affect - Allied health notes Allied health notes reviewed: nursing - Labs CBC & Chem 7: 06/05/19 04:22 06/05/19 04:22 Labs: Abnormal Lab Results - Last 24 Hours (Table) 06/04/19 06/04/19 06/04/19 Range/Units 12:45 17:12 21:04 RBC (3.80-5.40) m/uL Hgb (11.4-16.0) gm/dL Hct (34.0-46.0) % Plt Count (150-450) k/uL Neutrophils # (1.3-7.7) k/uL Lymphocytes # (1.0-4.8) k/uL Sodium (137-145) mmol/L BUN (7-17) mg/dL POC Glucose (mg/dL) 132 H 132 H 126 H (75-99) mg/dL Calcium (8.4-10.2) mg/dL Magnesium (1.6-2.3) mg/dL AST (14-36) U/L Total Protein (6.3-8.2) g/dL Albumin (3.5-5.0) g/dL 06/05/19 06/05/19 06/05/19 Range/Units 04:22 04:22 06:53 RBC 2.26 L (3.80-5.40) m/uL Hgb 7.1 L (11.4-16.0) gm/dL Hct 21.3 L (34.0-46.0) % Plt Count 103 L (150-450) k/uL Neutrophils # 7.9 H (1.3-7.7) k/uL Lymphocytes # 0.5 L (1.0-4.8) k/uL Sodium 133 L (137-145) mmol/L BUN 35 H (7-17) mg/dL POC Glucose (mg/dL) 125 H (75-99) mg/dL Calcium 8.1 L (8.4-10.2) mg/dL Magnesium 2.5 H (1.6-2.3) mg/dL AST 38 H (14-36) U/L Total Protein 4.4 L (6.3-8.2) g/dL Albumin 2.5 L (3.5-5.0) g/dL 06/05/19 Range/Units 12:09 RBC (3.80-5.40) m/uL Hgb (11.4-16.0) gm/dL Hct (34.0-46.0) % Plt Count (150-450) k/uL Neutrophils # (1.3-7.7) k/uL Lymphocytes # (1.0-4.8) k/uL Sodium (137-145) mmol/L BUN (7-17) mg/dL POC Glucose (mg/dL) 128 H (75-99) mg/dL Calcium (8.4-10.2) mg/dL Magnesium (1.6-2.3) mg/dL AST (14-36) U/L Total Protein (6.3-8.2) g/dL Albumin (3.5-5.0) g/dL - Imaging and Cardiology Chest x-ray: report reviewed, image reviewed Assessment and Plan Assessment: 1. Ascending aortic aneurysm, status post replacement with 32 mm Gelweave tube graft with distal malik-arch reconstruction under circulatory arrest 2. Aortic valve insufficiency, status post bioprosthetic aortic valve replacement 3. Coronary artery disease, status post 1 vessel CABG, CORRALES to the LAD 4. History of hypertension 5. Hyperlipidemia 6. Left internal carotid artery stenosis 50-79% 7. Depression 8. History of uterine and skin cancer 9. Osteoarthritis 10. Family history of heart disease 11. Preoperative nasal swab positive for MRSA 12. Intra-and postoperative acute blood loss anemia and coagulopathy 13. Postoperative controlled atrial fibrillation, currently in sinus rhythm Plan: 1. Continue low dose aspirin, plavix, statin, low dose beta mary. 2. Continue oral amiodarone. No anticoagulation 3. Wean O2 as tolerated. Encourage incentive spirometry use 10 times every ho ur while awake 4. Increase activity as tolerated. PT/OT/cardiac rehab consulted 5. Will monitor daily labs and x-rays. Electrolyte replacement per protocol. 6. Insulin management per primary care service 7. Pain control with current medication regimen. Avoid narcotics 8. Will discontinue right pleural chest tube. 9. Will DC cordis 10. Lasix 10 mg IV BID 11. More recommendations to follow Time with Patient: Greater than 30
--- NOTE | 2019-06-05 13:19 | P.PN ---
Subjective Progress Note Date: 06/05/19 83-year-old female who presented with shortness of breath. She underwent cardiac catheterization. This demonstrated moderate coronary artery disease in the right and LAD systems. There was a markedly dilated ascending aorta. There was 3-4+ aortic valvular insufficiency. Patient underwent a CAT scan demonstrating 5.6 cm ascending aortic aneurysm extending from the sinotubular junction into the arch. There was significant calcification of the distal ascending and arch aorta. Elective surgery was scheduled. The patient was brought into the operating room today and intraoperatively the patient was found to have The ascending aorta was markedly dilated. There was significant calcification of the distal ascending and arch aorta. The dilatation extended all the way to the proximal arch. There was a Bovie arch with common takeoff of the innominate artery and left carotid arteries. The arch distal to the takeoff of the Bovie arch was relatively normal. Aortic valve was tricuspid and minimally calcified. LAD had proximal calcifications. The CORRALES was a good conduit. There were enlarged anthracotic lymph nodes overlying the innominate artery. Based on this, the patient underwent a Replacement of ascending aorta with a 32 mm Gelweave tube graft with distal malik-arch reconstruction under circulatory arrest, replacement of aortic valve with 23 mm Avalus bovine pericardial prosthesis, CABG 1 with CORRALES to LAD, exclusion of the left atrial appendage with application of a 35 mm AtriCure clip, epi-aortic ultrasound, anterior mediastinal lymph node biopsy. The patient is currently postop in the intensive care unit. Intraoperatively the patient received a total of 6 units of fresh frozen plasma and 2 units of packed RBC. Currently I have him on assist control mode of ventilation. I put him on a rate of 20 with a tidal volume of 400 and FiO2 of 60% with a PEEP of 8. Cardiac output is 4.4 with an index of 2.4. PA pressures are 2514. He is on clevidipine drip for blood pressure control which is running at 4 mg an hour. He is well sedated with propofol. He is currently paced at the rate of 80. Producing urine output adequately. He has 2 mediastinal chest tubes and 2 pleural chest tube. Output from the mediastinal chest tube is been 600 mL and output from the left/right chest has been 60 mL. She is currently receiving platelets. Insulin drip at 4 units per hour.. Lactated ringer's at 50 mls per hour. Pacemaker wires in place. DDD. Currently A pacing V sensing. Mean arterial pressure 75. White count 4.7. Hemoglobin 8.0. Platelet count 108.000. She is well sedated with propofol and she is calm and comfortable. Adequate urine output. No other significant events otherwise postop. She has a right Anna [place]-Jane catheter. The chest x-ray shows all of the chest tubes are in place. The patient is a right pleural and left pleural and 2 mediastinal chest tubes. On today's evaluation of 06/02/2019 the patient is doing well. She is hemodynamically stable. She is still intubated on a mechanical ventilator. Blood gases from this morning showed a component of mild metabolic and respiratory alkalosis. PH was 7.5 with a pCO2 of 36 and pO2 of 139. I dropped a respiratory rate down to 14. She was started tidal volume of 400 with an FiO2 of 50% and a PEEP of 5. Chest x-ray from today shows no major abnormalities. Chest tubes are all in a good location. She is producing adequate amount of urine output. Cardiac index is 2.5 with a pulmonary artery pressure 20/70. The output from the chest tube has been in the order of 20-30 mL an hour from the pleural and mediastinal chest tubes. Her hemoglobin today is at 6.4 and she got a unit of blood transfusion. For now, we are the process of weaning suspicion of the mechanical ventilator. Her weaning parameters showed a bottle Of 488, R SBI of 59, minute ventilation of 7 L. The patient is currently on a pressure support of 5 and a PEEP of 5 and she is able to generate tidal volumes of about 400 with a respiratory rate of 15. As such, she may be potentially extubated today. No other significant events overnight. She is off the pacemaker sensing rhythm is sinus rhythm in the low 60s. On today's evaluation of 06/03/2019 patient is postop day #2. The patient was weaned off the mechanical ventilator and she was yesterday without any major difficulties. Note that overnight, the patient developed atrial fibrillation. She went into a controlled rate atrial fibrillation. She was given amiodarone and subsequently she became more bradycardic and urine output dropped. She was given a dose of Lasix IV and she produced a total of 150 mL of urine output. Urine output is on the lower rates this morning. She is currently AV paced at the rate of 80. She denies having any chest pain. She denies having any shortness of breath. Her hemoglobin was 6.4 and she was given a unit of packed RBC and hemoglobin is up to 8.1. Subsequent hemoglobin from today is at 7.3. Chest tubes are in place. Chest x-ray from today shows some atelectatic changes in the left lung base. THE CHEST TUBES HAS BEEN APPROXIMATELY 60 ML OVERNIGHT AND 300 ML OVER THE PAST 24 HOURS. MEDIASTINAL CHEST TUBE AND 500 ML OVER THE PAST 24 HOURS FROM THE LEFT-SIDED CHEST TUBE. THERE IS NO EVIDENCE OF ANY AIR LEAK. On 06/04/2019 the patient is postop day #3. She is currently on oxygen at 4 L. Chest x-ray shows some atelectatic change in the left lung base. There is a right and left pleural chest tube. The mediastinal chest tubes have been removed. Output from the right chest tube is 200 over the past 24 hours. Output from the left chest tube is 30 mL over the past 24 hours. Her blood p ressure is improved. She is producing adequate amount of urine output. She is on Lasix 10 mg IV every 12 hours. Her underlying intrinsic rhythm is sinus at the rate of 70. She has some gaseous distention in her abdomen. Passing flatus. No bowel movements yet. No nausea. No vomiting. No diarrhea. No altered mentation. Hemoglobin stable at 7.7. No other significant events overnight for now. Renal function stable with a creatinine of 1.07. On 06/05/2019 the patient is postop day #4. Doing well. She did have some diarrhea yesterday and she had a total of 4 bouts. Currently she is doing well. No abdominal pain. No nausea or vomiting. Using incentive spirometer. Pulling more than a 500 mL. White cell count is at 8.9 with a hemoglobin of 7.1. Renal function is stable. Chest x-ray from today shows some retrocardiac/left lower lobe atelectatic,. The patient also had some atelectatic changes in lung bases bilaterally. No multiple status change. No hypotension. No cardiac arrhythmias. The patient is in a sinus rhythm with a bundle-branch block pattern. Objective - Vital Signs Vital signs: Vital Signs Temp 98.0 F 06/05/19 04:00 Pulse 77 06/05/19 11:15 Resp 22 03/14/20 09:00 BP 157/66 06/05/19 09:00 Pulse Ox 100 06/05/19 09:00 Intake & Output 06/04/19 06/05/19 06/05/19 18:59 06:59 18:59 Intake Total 360 590 60 Output Total 1283 400 130 Balance -923 190 -70 Weight 66.7 kg 63.9 kg Intake: IV 360 350 60 Lactated Ringers 1,000 ml 360 350 60 @ 20 mls/hr IV .Q24H [facility] Rx#:[id number] Oral 240 Output: Chest Tube Drainage 283 130 Chest Tube Left 60 Right Chest Tube 223 130 Urine 1000 400 Other: Voiding Method Indwelling Catheter Bedpan Bedpan # Voids 1 0 1 # Bowel Movements 3 1 1 ABP, PAP, CO, CI - Last Documented Arterial Blood Pressure 98/36 Pulmonary Artery Pressure 17/3 Cardiac Output 3.9 Cardiac Index 2.5 - Exam - Constitutional General appearance: Present: cooperative, no acute distress - Respiratory Details: Lungs sounds diminished bilaterally. Respirations even, nonlabored. Currently on 3LPM NC with oxygen saturation 95%. Able to achieve 750 mL on her incentive spirometry. Right pleural chest tube to continuous wall suction, 70 mL serosanguineous drainage overnight, 230 mL in the last 24 hours, no air leak present. - Cardiovascular Details: S1, S2 present. Regular rate and rhythm, normal sinus rhythm on telemetry. Sternum stable. A/V epicardial pacemaker wires present, connected to generator, VVI mode with backup rate 50 bpm. Palpable peripheral pulses bilaterally. Trace generalized edema present. Right internal jugular Cordis present. Heart hugger in place with patient demonstrating appropriate use, antiembolism stockings, SCDs present. - Gastrointestinal Gastrointestinal Comment(s): Abdomen soft, nontender, nondistended. Active bowel sounds present 4 quadrants. Tolerating diet. Positive bowel movement - Genitourinary Genitourinary Comment(s): Burton discontinued yesterday, patient continues to void clear yellow urine - Labs CBC & Chem 7: 06/05/19 04:22 06/05/19 04:22 Labs: Abnormal Lab Results - Last 24 Hours (Table) 06/04/19 06/04/19 06/05/19 Range/Units 17:12 21:04 04:22 RBC 2.26 L (3.80-5.40) m/uL Hgb 7.1 L (11.4-16.0) gm/dL Hct 21.3 L (34.0-46.0) % Plt Count 103 L (150-450) k/uL Neutrophils # 7.9 H (1.3-7.7) k/uL Lymphocytes # 0.5 L (1.0-4.8) k/uL Sodium (137-145) mmol/L BUN (7-17) mg/dL POC Glucose (mg/dL) 132 H 126 H (75-99) mg/dL Calcium (8.4-10.2) mg/dL Magnesium (1.6-2.3) mg/dL AST (14-36) U/L Total Protein (6.3-8.2) g/dL Albumin (3.5-5.0) g/dL 06/05/19 06/05/19 06/05/19 Range/Units 04:22 06:53 12:09 RBC (3.80-5.40) m/uL Hgb (11.4-16.0) gm/dL Hct (34.0-46.0) % Plt Count (150-450) k/uL Neutrophils # (1.3-7.7) k/uL Lymphocytes # (1.0-4.8) k/uL Sodium 133 L (137-145) mmol/L BUN 35 H (7-17) mg/dL POC Glucose (mg/dL) 125 H 128 H (75-99) mg/dL Calcium 8.1 L (8.4-10.2) mg/dL Magnesium 2.5 H (1.6-2.3) mg/dL AST 38 H (14-36) U/L Total Protein 4.4 L (6.3-8.2) g/dL Albumin 2.5 L (3.5-5.0) g/dL Assessment and Plan Plan: 1 replacement of ascending aorta with a malik-arch reconstruction, aortic valve replacement with a bovine recovered a prosthesis and coronary artery bypass 1 with CORRALES to LAD and left atrial appendage clipping along with an anterior mediastinal lymph node biopsy. The patient is postop day #4 2 severe aortic regurgitation with a ascending aortic aneurysm and coronary artery disease 3 post thoracotomy and the patient is currently extubated and currently on nasal cannula. Chest x-ray from today shows some atelectatic changes and left lung base. Chest tubes are still in place and output has been noticed. On today's chest x-ray there is no major change in the chest x-ray finding. Atelectatic changes and left lung base. The patient is pulling approximately 500 on the incentive spirometer. Ultrasound the chest tube has been noted. 4 paroxysmal atrial fibrillation treated with amiodarone and currently his rhythm is sinus 5 hypertension currently off the clevidipine drip and the patient subsequently became hypotensive. Urine output has accordingly dropped also. 6 anemia, due to intraoperative blood loss, expected outcome surgery and the pa gina was transfused with a current hemoglobin is at 7.1 7 coagulopathy post transfusion with a 6 units of fresh frozen plasma 8 chronic anxiety 9 osteoarthritis 10 new onset diarrhea Plan We'll check stool for C. diff Continue aspirin and Plavix and low-dose beta blockers Continue amiodarone and there is no anticoagulation for now Lasix Incentive spirometer Monitor electrolytes Pulmonary status is stable. She needs to work harder her incentive spirometer Monitor hemoglobin We'll continue to follow
[2019-06-05 17:02] LABS: Glucose,Whole Blood 108 mg/dL (75-99)
[2019-06-05] MEDS: LIDOCAINE 5% PATCH TOPICAL SCH (17:25)
[2019-06-05] MEDS: MELATONIN 3 MG TABLET PO SCH (20:17)
[2019-06-05 20:28] LABS: Glucose,Whole Blood 120 mg/dL (75-99)
--- NOTE | 2019-06-05 21:18 | PN ---
PROGRESS NOTE DATE OF SERVICE: 06/05/2019 This 84-year-old woman was admitted with aortic valve replacement, aortic graft and aortic root replacement, CAD/CABG, is being closely monitored. The patient is was slightly confused yesterday. Sensorium is improved. No chest pain. No palpitations. No fever. PHYSICAL EXAMINATION: Alert and oriented x2. Pulse 69. Blood pressure 139/46. Respirations 17, temperature normal, pulse ox 99% on 2 L. HEENT: Conjunctivae normal. NECK: No JVD. CARDIOVASCULAR: S1, S2 muffled. RESPIRATION: Breath sounds diminished in the bases. A few scattered rhonchi and crackles. ABDOMEN is soft, nontender. LEGS: No edema. No swelling. CENTRAL NERVOUS SYSTEM: No focal deficits. LABS: WBC 8.2, hemoglobin 7.1, sodium 133, calcium 8.1, albumin is 2.5. ASSESSMENT: 1. Status post aortic valve replacement as well as ascending aortic replacement with graft and distal reconstruction with aortic root replacement with bovine pericardial prosthesis, coronary artery bypass grafting with CORRALES to LAD. 2. Anemia, normocytic as expected postoperatively. 3. Elevated blood sugars improved. 4. History of coronary artery disease. 5. Hypertension. 6. Metabolic encephalopathy. 7. Hyperlipidemia. 8. History of degenerative joint disease. 9. History of ascending aortic aneurysm with severe aortic regurgitation. 10.History of uterine cancer. 11.History of anxiety. 12.FULL CODE. RECOMMENDATIONS AND DISCUSSION: Recommend to continue current medications, symptomatic treatment. Otherwise, incentive spirometry. DVT prophylaxis. Monitor blood sugars closely. Closely follow with Cardiothoracic Surgery. Further recommendations to follow. MMODL / IJN: [id number] /
[2019-06-06] MEDS: HEPARIN SODIUM,PORCINE 5,000 UNIT/ML 1 ML VIAL SQ SCH ×3 (00:19→16:44)
[2019-06-06 04:28] LABS: Calcium 8.1 mg/dL (8.4-10.2); Potassium 3.5 mmol/L (3.5-5.1)
[2019-06-06 04:32] LABS: HCT 20.7 % (34.0-46.0); MCH 30.9 pg (25.0-35.0); MCHC 32.8 g/dL (31.0-37.0); MCV 94.3 fL (80.0-100.0); Mean Platelet Volume 8.4; Platelet Count 125 k/uL (150-450); RBC 2.19 m/uL (3.80-5.40); RDW 14.5 % (11.5-15.5); WBC 7.6 k/uL (3.8-10.6)
[2019-06-06 04:40] LABS: HGB 6.8 gm/dL (11.4-16.0)
[2019-06-06 06:16] LABS: HCT 22.8 % (34.0-46.0); HGB 7.3 gm/dL (11.4-16.0); MCH 30.7 pg (25.0-35.0); MCHC 32.2 g/dL (31.0-37.0); MCV 95.2 fL (80.0-100.0); Mean Platelet Volume 8.9; Platelet Count 123 k/uL (150-450); RBC 2.39 m/uL (3.80-5.40); RDW 14.2 % (11.5-15.5)
[2019-06-06 06:53] LABS: Glucose,Whole Blood 109 mg/dL (75-99)
--- NOTE | 2019-06-06 07:31 | P.PN ---
Subjective Progress Note Date: 06/06/19 83-year-old female who presented with shortness of breath. She underwent cardiac catheterization. This demonstrated moderate coronary artery disease in the right and LAD systems. There was a markedly dilated ascending aorta. There was 3-4+ aortic valvular insufficiency. Patient underwent a CAT scan demonstrating 5.6 cm ascending aortic aneurysm extending from the sinotubular junction into the arch. There was significant calcification of the distal ascending and arch aorta. Elective surgery was scheduled. The patient was brought into the operating room today and intraoperatively the patient was found to have The ascending aorta was markedly dilated. There was significant calcification of the distal ascending and arch aorta. The dilatation extended all the way to the proximal arch. There was a Bovie arch with common takeoff of the innominate artery and left carotid arteries. The arch distal to the takeoff of the Bovie arch was relatively normal. Aortic valve was tricuspid and minimally calcified. LAD had proximal calcifications. The CORRALES was a good conduit. There were enlarged anthracotic lymph nodes overlying the innominate artery. Based on this, the patient underwent a Replacement of ascending aorta with a 32 mm Gelweave tube graft with distal malik-arch reconstruction under circulatory arrest, replacement of aortic valve with 23 mm Avalus bovine pericardial prosthesis, CABG 1 with CORRALES to LAD, exclusion of the left atrial appendage with application of a 35 mm AtriCure clip, epi-aortic ultrasound, anterior mediastinal lymph node biopsy. The patient is currently postop in the intensive care unit. Intraoperatively the patient received a total of 6 units of fresh frozen plasma and 2 units of packed RBC. Currently I have him on assist control mode of ventilation. I put him on a rate of 20 with a tidal volume of 400 and FiO2 of 60% with a PEEP of 8. Cardiac output is 4.4 with an index of 2.4. PA pressures are 2514. He is on clevidipine drip for blood pressure control which is running at 4 mg an hour. He is well sedated with propofol. He is currently paced at the rate of 80. Producing urine output adequately. He has 2 mediastinal chest tubes and 2 pleural chest tube. Output from the mediastinal chest tube is been 600 mL and output from the left/right chest has been 60 mL. She is currently receiving platelets. Insulin drip at 4 units per hour.. Lactated ringer's at 50 mls per hour. Pacemaker wires in place. DDD. Currently A pacing V sensing. Mean arterial pressure 75. White count 4.7. Hemoglobin 8.0. Platelet count 108.000. She is well sedated with propofol and she is calm and comfortable. Adequate urine output. No other significant events otherwise postop. She has a right [place]-Jane catheter. The chest x-ray shows all of the chest tubes are in place. The patient is a right pleural and left pleural and 2 mediastinal chest tubes. On today's evaluation of 06/02/2019 the patient is doing well. She is hemodynamically stable. She is still intubated on a mechanical ventilator. Blood gases from this morning showed a component of mild metabolic and respiratory alkalosis. PH was 7.5 with a pCO2 of 36 and pO2 of 139. I dropped a respiratory rate down to 14. She was started tidal volume of 400 with an FiO2 of 50% and a PEEP of 5. Chest x-ray from today shows no major abnormalities. Chest tubes are all in a good location. She is producing adequate amount of urine output. Cardiac index is 2.5 with a pulmonary artery pressure 20/70. The output from the chest tube has been in the order of 20-30 mL an hour from the pleural and mediastinal chest tubes. Her hemoglobin today is at 6.4 and she got a unit of blood transfusion. For now, we are the process of weaning suspicion of the mechanical ventilator. Her weaning parameters showed a bottle Of 488, R SBI of 59, minute ventilation of 7 L. The patient is currently on a pressure support of 5 and a PEEP of 5 and she is able to generate tidal volumes of about 400 with a respiratory rate of 15. As such, she may be potentially extubated today. No other significant events overnight. She is off the pacemaker sensing rhythm is sinus rhythm in the low 60s. On today's evaluation of 06/03/2019 patient is postop day #2. The patient was weaned off the mechanical ventilator and she was yesterday without any major difficulties. Note that overnight, the patient developed atrial fibrillation. She went into a controlled rate atrial fibrillation. She was given amiodarone and subsequently she became more bradycardic and urine output dropped. She was given a dose of Lasix IV and she produced a total of 150 mL of urine output. Urine output is on the lower rates this morning. She is currently AV paced at the rate of 80. She denies having any chest pain. She denies having any shortness of breath. Her hemoglobin was 6.4 and she was given a unit of packed RBC and hemoglobin is up to 8.1. Subsequent hemoglobin from today is at 7.3. Chest tubes are in place. Chest x-ray from today shows some atelectatic changes in the left lung base. THE CHEST TUBES HAS BEEN APPROXIMATELY 60 ML OVERNIGHT AND 300 ML OVER THE PAST 24 HOURS. MEDIASTINAL CHEST TUBE AND 500 ML OVER THE PAST 24 HOURS FROM THE LEFT-SIDED CHEST TUBE. THERE IS NO EVIDENCE OF ANY AIR LEAK. On 06/04/2019 the patient is postop day #3. She is currently on oxygen at 4 L. Chest x-ray shows some atelectatic change in the left lung base. There is a right and left pleural chest tube. The mediastinal chest tubes have been removed. Output from the right chest tube is 200 over the past 24 hours. Output from the left chest tube is 30 mL over the past 24 hours. Her blood p ressure is improved. She is producing adequate amount of urine output. She is on Lasix 10 mg IV every 12 hours. Her underlying intrinsic rhythm is sinus at the rate of 70. She has some gaseous distention in her abdomen. Passing flatus. No bowel movements yet. No nausea. No vomiting. No diarrhea. No altered mentation. Hemoglobin stable at 7.7. No other significant events overnight for now. Renal function stable with a creatinine of 1.07. On 06/05/2019 the patient is postop day #4. Doing well. She did have some diarrhea yesterday and she had a total of 4 bouts. Currently she is doing well. No abdominal pain. No nausea or vomiting. Using incentive spirometer. Pulling more than a 500 mL. White cell count is at 8.9 with a hemoglobin of 7.1. Renal function is stable. Chest x-ray from today shows some retrocardiac/left lower lobe atelectatic,. The patient also had some atelectatic changes in lung bases bilaterally. No multiple status change. No hypotension. No cardiac arrhythmias. The patient is in a sinus rhythm with a bundle-branch block pattern. On 06/06/2019 the patient is postop day #5. She is calm and comfortable. Chest x-ray shows no acute abnormalities. Chest tubes have been removed. She is still using incentive spirometer and she is producing approximately 500 the volume. No cardiac arrhythmias. Underlying cardiac rhythm is sinus. She is h aving loose diarrhea. Unable to collect a stool for C. diff sample as the sample was contaminated with urine. No fever. No chills. No hypotension. No altered mentation. Sternum stable clean and intact.A repeat CBC today showed a white cell count of 8.0 with a hemoglobin of 7.3. Platelet count is stable at 123. The creatinine is stable at 0.8. Objective - Vital Signs Vital signs: Vital Signs Temp 98.8 F 06/06/19 04:00 Pulse 74 06/06/19 07:00 Resp 17 06/06/19 07:00 BP 139/62 06/06/19 07:00 Pulse Ox 99 06/06/19 07:00 Intake & Output 06/05/19 06/06/19 06/06/19 18:59 06:59 18:59 Intake Total 582 180 Output Total 630 0 0 Balance -48 180 0 Weight 64.1 kg Intake: IV 260 180 Lactated Ringers 1,000 ml 260 180 @ 20 mls/hr IV .Q24H [facility] Rx#:[id number] Intake, IV Titration 100 Amount Calcium Gluconate 1 gm In 100 Sodium Chloride 0.9% 100 ml @ 100 mls/hr IVPB ONCE ONE Rx#:[id number] Oral 222 Output: Chest Tube Drainage 130 Right Chest Tube 130 Urine 500 0 0 Other: Voiding Method Bedside Commode Bedpan Bedpan # Voids 1 1 # Bowel Movements 1 1 ABP, PAP, CO, CI - Last Documented Arterial Blood Pressure 98/36 Pulmonary Artery Pressure 17/3 Cardiac Output 3.9 Cardiac Index 2.5 - Exam - Constitutional General appearance: Present: cooperative, no acute distress Head exam was generally normal. There was no scleral icterus or corneal arcus. Mucous membranes were moist. Neck was supple and without jugular venous distension, thyromegaly, or carotid bruits. Carotids were easily palpable bilaterally. There was no adenopathy. - Respiratory Details: Lungs sounds diminished bilaterally. Respirations even, nonlabored. Currently on 3LPM NC with oxygen saturation 95%. Able to achieve 750 mL on her incentive spirometry. - Cardiovascular Details: S1, S2 present. Regular rate and rhythm, normal sinus rhythm on telemetry. Sternum stable. A/V epicardial pacemaker wires present, connected to generator, VVI mode with backup rate 50 bpm. Palpable peripheral pulses bilaterally. Trace generalized edema present. Right internal jugular Cordis present. Heart hugger in place with patient demonstrating appropriate use, antiembolism stockings, SCDs present. - Gastrointestinal Gastrointestinal Comment(s): Abdomen soft, nontender, nondistended. Active bowel sounds present 4 quadrants. Tolerating diet. Positive bowel movement - Genitourinary Genitourinary Comment(s): Burton discontinued yesterday, patient continues to void clear yellow urine Examination of the skin revealed no evidence of significant rashes, suspicious appearing nevi or other concerning lesions. Neurologically patient is awake and alert and is no focal neurological deficit - Labs CBC & Chem 7: 06/06/19 05:18 06/06/19 04:08 Labs: Abnormal Lab Results - Last 24 Hours (Table) 06/05/19 06/05/19 06/05/19 Range/Units 12:09 17:01 20:26 RBC (3.80-5.40) m/uL Hgb (11.4-16.0) gm/dL Hct (34.0-46.0) % Plt Count (150-450) k/uL Carbon Dioxide (22-30) mmol/L BUN (7-17) mg/dL POC Glucose (mg/dL) 128 H 108 H 120 H (75-99) mg/dL Calcium (8.4-10.2) mg/dL 06/06/19 06/06/19 06/06/19 Range/Units 04:08 04:08 05:18 RBC 2.19 L 2.39 L (3.80-5.40) m/uL Hgb 6.8 L* 7.3 L (11.4-16.0) gm/dL Hct 20.7 L 22.8 L (34.0-46.0) % Plt Count 125 L 123 L (150-450) k/uL Carbon Dioxide 31 H (22-30) mmol/L BUN 24 H (7-17) mg/dL POC Glucose (mg/dL) (75-99) mg/dL Calcium 8.1 L (8.4-10.2) mg/dL 06/06/19 Range/Units 06:51 RBC (3.80-5.40) m/uL Hgb (11.4-16.0) gm/dL Hct (34.0-46.0) % Plt Count (150-450) k/uL Carbon Dioxide (22-30) mmol/L BUN (7-17) mg/dL POC Glucose (mg/dL) 109 H (75-99) mg/dL Calcium (8.4-10.2) mg/dL Assessment and Plan Plan: 1 replacement of ascending aorta with a malik-arch reconstruction, aortic valve replacement with a bovine recovered a prosthesis and coronary artery bypass 1 with CORRALES to LAD and left atrial appendage clipping along with an anterior mediastinal lymph node biopsy. The patient is postop day #5 2 severe aortic regurgitation with a ascending aortic aneurysm and coronary a rtery disease 3 post thoracotomy and the patient is currently extubated and currently on nasal cannula. She is currently on 2 L of oxygen by nasal cannula. All of the chest tubes are out. 4 paroxysmal atrial fibrillation treated with amiodarone and currently his rhythm is sinus , she is in sinus rhythm with a bundle-branch block pattern 5 hypertension, with a well-controlled blood pressure 6 anemia, due to intraoperative blood loss, expected outcome surgery and the patient was transfused with a current hemoglobin is still above 7 and the patient overall has received a total of 3 units of packed RBC postop 7 coagulopathy post transfusion with a 6 units of fresh frozen plasma 8 chronic anxiety 9 osteoarthritis 10 new onset diarrhea, improving Plan We'll check stool for C. diff Continue aspirin and Plavix and low-dose beta blockers Continue amiodarone and there is no anticoagulation for now Lasix per CT surgery Incentive spirometer Monitor electrolytes Pulmonary status is stable. She needs to work harder her incentive spirometer
--- NOTE | 2019-06-06 07:40 | XR ---
EXAMINATION TYPE: XR chest 1V portable DATE OF EXAM: 06/06/2019 COMPARISON: 06/05/2019 HISTORY: Post cardiac surgery TECHNIQUE: Single frontal view of the chest is obtained. FINDINGS: Right-sided chest tube has been removed with no sizable pneumothorax. Bilateral consolidat ion small effusion greater on the left noted. There is a postoperative change. Atherosclerotic change aorta. Arthropathy of the shoulders and diffuse osteopenia. IMPRESSION: Stable findings suggestive of pneumonia. Correlate clinically. Mild underlying venous co ngestion suspected.
[2019-06-06] MEDS: IPRATROPIUM-ALBUTEROL 3 ML NEB INHALATION SCH ×4 (07:53→19:14)
--- NOTE | 2019-06-06 08:08 | P.PN ---
Subjective Progress Note Date: 06/06/19 Principal diagnosis: Ascending aortic aneurysm, aortic valve insufficiency, coronary artery disease. Previous medical history of hypertension, hyperlipidemia, left internal carotid artery stenosis 50-79%, depression, uterine and skin cancer within the last 5 years, osteoarthritis, and family history of heart disease. Preoperative nasal swab positive for MRSA. POD #5 replacement of ascending aorta with 32 mm Gelweave tube graft with distal malik-arch reconstruction under circulatory arrest, replacement of aortic valve with 23 mm Avalus bovine pericardial bioprosthesis, coronary artery bypass grafting 1 with the left internal mammary artery to the left anterior descendin g artery, exclusion of the left atrial appendage with application of a 35 mm AtriCure clip, epi-aortic ultrasound, anterior mediastinal lymph node biopsy. Intra-and postoperative acute blood loss anemia and coagulopathy, expected outcome and given hemodilution, cardiopulmonary bypass pump, and circulatory arrest, status post transfusion Postoperative controlled atrial fibrillation, unexpected The patient is currently sitting up in the recliner in the ICU in no acute distress. She states post surgical pain is controlled on current medication, denies shortness of breath. She remains in normal sinus rhythm and hemodynamically stable, no further afib. Continues to have diarrhea although it is slowing down, and no C. diff sample sent yet. No other new concerns Objective - Vital Signs Vital signs: Vital Signs Temp 98.8 F 06/06/19 04:00 Pulse 74 06/06/19 07:00 Resp 17 06/06/19 07:00 BP 139/62 06/06/19 07:00 Pulse Ox 99 06/06/19 07:00 Intake & Output 06/05/19 06/06/19 06/06/19 18:59 06:59 18:59 Intake Total 582 180 Output Total 630 0 0 Balance -48 180 0 Weight 64.1 kg Intake: IV 260 180 Lactated Ringers 1,000 ml 260 180 @ 20 mls/hr IV .Q24H [facility] Rx#:[id number] Intake, IV Titration 100 Amount Calcium Gluconate 1 gm In 100 Sodium Chloride 0.9% 100 ml @ 100 mls/hr IVPB ONCE ONE Rx#:[id number] Oral 222 Output: Chest Tube Drainage 130 Right Chest Tube 130 Urine 500 0 0 Other: Voiding Method Bedside Commode Bedpan Bedpan # Voids 1 1 # Bowel Movements 1 1 ABP, PAP, CO, CI - Last Documented Arterial Blood Pressure 98/36 Pulmonary Artery Pressure 17/3 Cardiac Output 3.9 Cardiac Index 2.5 - Constitutional General appearance: Present: cooperative, no acute distress - Respiratory Details: Lungs sounds diminished bilaterally. Respirations even, nonlabored. Currently on 2LPM NC with oxygen saturation 99%. Able to achieve 750 mL on her incentive spirometry. Strong cough. - Cardiovascular Details: S1, S2 present. Regular rate and rhythm, normal sinus rhythm with bundle branch block on telemetry. Sternum stable. A/V epicardial pacemaker wires present, connected to generator, VVI mode with backup rate 50 bpm. Palpable peripheral pulses bilaterally. Trace generalized edema present. Heart hugger in place with patient demonstrating appropriate use, antiembolism stockings, SCDs pr esent. - Gastrointestinal Gastrointestinal Comment(s): Abdomen soft, nontender, nondistended. Active bowel sounds present 4 quadrants. Tolerating diet. Positive loose stools, becoming less frequent - Genitourinary Genitourinary Comment(s): Continues to void clear yellow urine - Integumentary Integumentary Comment(s): Skin is warm and dry with evidence of good perfusion. Anterior chest incision well approximated and covered with dry intact dressing. - Neurologic Neurologic: Present: CNII-XII intact - Musculoskeletal Musculoskeletal: Present: generalized weakness, strength equal bilaterally - Psychiatric Psychiatric: Present: A&O x's 3, appropriate affect - Allied health notes Allied health notes reviewed: nursing - Labs CBC & Chem 7: 06/06/19 05:18 06/06/19 05:18 Labs: Abnormal Lab Results - Last 24 Hours (Table) 06/05/19 06/05/19 06/05/19 Range/Units 12:09 17:01 20:26 RBC (3.80-5.40) m/uL Hgb (11.4-16.0) gm/dL Hct (34.0-46.0) % Plt Count (150-450) k/uL Carbon Dioxide (22-30) mmol/L BUN (7-17) mg/dL POC Glucose (mg/dL) 128 H 108 H 120 H (75-99) mg/dL Calcium (8.4-10.2) mg/dL 06/06/19 06/06/19 06/06/19 Range/Units 04:08 04:08 05:18 RBC 2.19 L 2.39 L (3.80-5.40) m/uL Hgb 6.8 L* 7.3 L (11.4-16.0) gm/dL Hct 20.7 L 22.8 L (34.0-46.0) % Plt Count 125 L 123 L (150-450) k/uL Carbon Dioxide 31 H (22-30) mmol/L BUN 24 H (7-17) mg/dL POC Glucose (mg/dL) (75-99) mg/dL Calcium 8.1 L (8.4-10.2) mg/dL 06/06/19 Range/Units 06:51 RBC (3.80-5.40) m/uL Hgb (11.4-16.0) gm/dL Hct (34.0-46.0) % Plt Count (150-450) k/uL Carbon Dioxide (22-30) mmol/L BUN (7-17) mg/dL POC Glucose (mg/dL) 109 H (75-99) mg/dL Calcium (8.4-10.2) mg/dL - Imaging and Cardiology Chest x-ray: report reviewed, image reviewed Assessment and Plan Assessment: 1. Ascending aortic aneurysm, status post replacement with 32 mm Gelweave tube graft with distal malik-arch reconstruction under circulatory arrest 2. Aortic valve insufficiency, status post bioprosthetic aortic valve replacement 3. Coronary artery disease, status post 1 vessel CABG, CORRALES to the LAD 4. History of hypertension 5. Hyperlipidemia 6. Left internal carotid artery stenosis 50-79% 7. Depression 8. History of uterine and skin cancer 9. Osteoarthritis 10. Family history of heart disease 11. Preoperative nasal swab positive for MRSA 12. Intra-and postoperative acute blood loss anemia and coagulopathy 13. Postoperative controlled atrial fibrillation, currently in sinus rhythm Plan: 1. Continue low dose aspirin, plavix, statin, low dose beta mary. Will add low dose ARB 2. Continue oral amiodarone. No anticoagulation 3. Wean O2 as tolerated. Encourage incentive spirometry use 10 times every hour while awake 4. Increase activity as tolerated. PT/OT/cardiac rehab consulted 5. Will monitor daily labs and x-rays. Electrolyte replacement per protocol. No transfusion at this time. 6. Insulin management per primary care service 7. Pain control with current medication regimen. Avoid narcotics 8. Ground epicardial pacemaker wires. Will discontinue tomorrow 9. Lasix 10 mg IV BID 10. Will place transfer orders for [address] [place] [address] cardiac stepdown unit. May transfer when bed available. 11. Discharge planning in progress. Anticipate discharge to [facility] versus home with home care tomorrow. Dr. Avila consulted 12. More recommendations to follow Time with Patient: Greater than 30
[2019-06-06 08:10] LABS: Calcium 8.4 mg/dL (8.4-10.2); Potassium 3.5 mmol/L (3.5-5.1)
[2019-06-06] MEDS: FUROSEMIDE 10 MG/ML 2 ML VIAL IV SCH ×2 (08:19→16:44)
[2019-06-06] MEDS: FERROUS SULFATE 325 MG TAB PO SCH ×2 (09:26→16:44)
[2019-06-06] MEDS: PANTOPRAZOLE 40 MG TABLET PO SCH (09:26)
[2019-06-06] MEDS: ASCORBIC ACID 500 MG TAB PO SCH ×2 (09:26→16:44)
[2019-06-06] MEDS: AMIODARONE 200 MG TAB PO SCH ×2 (09:27→20:53)
[2019-06-06] MEDS: ASPIRIN 81 MG PO SCH (09:27)
[2019-06-06] MEDS: ACETAMINOPHEN TAB 500 MG TAB PO PRN ×2 (09:27→22:07)
[2019-06-06] MEDS: ATORVASTATIN 40 MG TAB PO SCH (09:27)
[2019-06-06] MEDS: METOPROLOL TARTRATE 12.5 MG TAB PO SCH ×2 (09:27→20:53)
[2019-06-06] MEDS: CLOPIDOGREL 75 MG TAB PO SCH (09:28)
[2019-06-06] MEDS: MUPIROCIN 2% OINT 22 GM TUBE NASAL SCH ×2 (09:28→20:53)
[2019-06-06] MEDS: INSULIN ASPART (NovoLOG) 100 UNIT/ML VIAL SQ SCH ×4 (09:28→20:50)
[2019-06-06] MEDS: LIDOCAINE 5% PATCH TOPICAL SCH (09:28)
[2019-06-06] MEDS: MULTIVITAMINS, THERA 1 EACH TAB PO SCH (09:28)
[2019-06-06] MEDS: SERTRALINE 50 MG TAB PO SCH (09:28)
[2019-06-06] MEDS ORDERED: POTASSIUM CHLORIDE ER 20 MEQ TAB.ER PO STA (10:01)
[2019-06-06] MEDS: LOSARTAN 25 MG TAB PO SCH (11:26)
[2019-06-06 11:53] LABS: Glucose,Whole Blood 148 mg/dL (75-99)
--- NOTE | 2019-06-06 11:57 | PN ---
PROGRESS NOTE This patient's electronic medical records and clinical panels reviewed. The progress notes in the chart is reviewed. Please refer to the patient's electronic medical records for further details. Patient is status post aortic valve replacement. The patient is doing well. She is sitting comfortably in the bed without any problem. The patient remains in normal sinus rhythm with a left bundle branch block pattern. Blood pressure is 139/62 mmHg. First and second heart sounds are normal. Lungs are clear to auscultation and percussion. The patient will be ambulated and continue the current medications. MMODL / IJN: [id number] /
[2019-06-06 16:57] LABS: Glucose,Whole Blood 88 mg/dL (75-99)
--- NOTE | 2019-06-06 20:09 | PN ---
PROGRESS NOTE DATE OF SERVICE: 06/06/2019 This 84-year-old woman who was admitted with aortic valve replacement, ascending aortic repair is being closely monitored. No chest pain. No palpitations. No fever. PHYSICAL EXAMINATION: Alert and oriented x3. Pulse is 72. Blood pressure 120/59. Respirations 18. Temp 97.6. Pulse ox 100 percent on 2 L. HEENT exam: Conjunctivae normal. NECK: No JVD. CARDIOVASCULAR: S1, S2 muffled. RESPIRATIONS: Breath sounds diminished in the bases. A few scattered rhonchi. ABDOMEN: Soft. NERVOUS SYSTEM: No focal deficits. LAB: Hemoglobin 9, sodium 130. ASSESSMENT: 1. Status post aortic valve replacement as well as ascending aortic replacement with graft and reconstruction with aortic root replacement with bovine pericardial processes of the aortic valve and as well as coronary artery bypass grafting with CORRALES to LAD. 2. Anemia, normocytic as expected postoperatively. 3. Elevated blood sugars, improved. 4. History of coronary artery disease. 5. Hypertension. 6. Gait dysfunction. 7. Metabolic encephalopathy, confusion. 8. Hyperlipidemia. 9. History of degenerative joint disease. 10.History of ascending aortic aneurysm with severe aortic regurgitation. 11.History of uterine cancer. 12.History of anxiety. 13.FULL CODE. RECOMMENDATIONS AND DISCUSSION: Recommend to continue current medications, management and symptomatic treatment. Continue the current medications. Supplement vitamins. Otherwise DVT prophylaxis. Closely follow. Discussed with cardiovascular surgery. PT/OT evaluation. Possible inpatient rehab with Dr. Avila. Further recommendations to follow. MMODL / IJN: [id number] /
[2019-06-06 20:20] LABS: Glucose,Whole Blood 111 mg/dL (75-99)
[2019-06-06] MEDS: MELATONIN 3 MG TABLET PO SCH (20:53)
[2019-06-06] MEDS: ONDANSETRON 4 MG/2 ML VIAL IVP PRN (22:07)
[2019-06-07 06:11] LABS: Glucose,Whole Blood 101 mg/dL (75-99)
[2019-06-07] MEDS: FUROSEMIDE 10 MG/ML 2 ML VIAL IV SCH (06:37)
[2019-06-07] MEDS: ASCORBIC ACID 500 MG TAB PO SCH (06:37)
[2019-06-07] MEDS: PANTOPRAZOLE 40 MG TABLET PO SCH (06:37)
[2019-06-07] MEDS: INSULIN ASPART (NovoLOG) 100 UNIT/ML VIAL SQ SCH ×2 (06:37→12:42)
[2019-06-07] MEDS: FERROUS SULFATE 325 MG TAB PO SCH (06:37)
--- NOTE | 2019-06-07 06:46 | P.CONS ---
History of Present Illness - Chief Complaint Cardiac debility - History of Present Illness I had the opportunity to see patient for inpatient rehab consultation with regard to cardiac debility. She was admitted to [facility] May 31 underwent elective a standing aortic aneurysm repair and aortic valve replacement by Dr. Mcduffie. Chest x-rays followed for pneumonia versus congestion. Seen in consultation by Dr. Norton and, Rishi and cardiology. PT reports minimal assistance for transfers and gait 86 feet, hand-held. OT reports maximal assistance for upper and lower dressing and bathing. Total assistance for toileting and 2 person minimal assistance for transfer. Nurse reports standby assist for transfer to bedside Concha chair this a.m. Previous functional history as elicited from patient: 84-year-old right-handed white female who is lives and 2 floor home with son and son's family. [id number] does the cooking and laundry. Patient prefers not to drive. Independent standing shower and gait without device. Dr. Mcgarry is regular doctor. Denies tobacco or alcohol. Family history of father with aneurysm. Review of Systems Review of systems: ENT: Denies sneezes or discharge. Eyes: Denies discharge or photophobia. Cardiac: At least mild sternal discomfort. Pulmonary: Mild shortness of breath. Breast: Denies discharge or lumps. Gastrointestinal: Denies nausea, emesis, constipation, diarrhea. Genitourinary: Denies discharge or frequency. Musculoskeletal: Denies muscle or bone aches. Neurologic: General weakness. Endocrine: Denies shakes or sweats. Oncology: Denies cancers. Dermatologic: Denies rash, itching, pruritus. ALLERGY/immunology: Denies sneezes, rashes. Past Medical History Past Medical History: Coronary Artery Disease (CAD), Cancer, Hyperlipidemia, Hypertension, Osteoarthritis (OA) Additional Past Medical History / Comment(s): CAD, ascending aortic aneurysm, severe aortic regurgitation, uterine cancer, History of Any Multi-Drug Resistant Organisms: None Reported Past Surgical History: Adenoidectomy, Bladder Surgery, Cholecystectomy, Heart Catheterization, Hysterectomy, Orthopedic Surgery, Tonsillectomy Additional Past Surgical History / Comment(s): bladder suspension, knee arthroscopy-desmond, desmond cataracts, 3-15-16 rt hip hemiarthroplasty Past Anesthesia/Blood Transfusion Reactions: No Reported Reaction Past Psychological History: Anxiety Additional Psychological History / Comment(s): pt is living with son jose Smoking Status: Never smoker Past Alcohol Use History: Occasional Past Drug Use History: None Reported - Past Family History Mother Family Medical History: Osteoarthritis (OA) Additional Family Medical History / Comment(s): low bp Father Family Medical History: Hypertension Additional Family Medical History / Comment(s): enlarged heart Daughter(s) Family Medical History: Myocardial Infarction (AR) Medications and Allergies Home Medications Medication Instructions Recorded Confirmed Type Diltiazem HCl [Cardizem] 120 mg PO DAILY 05/25/14 05/24/19 History HYDROcodone/APAP 5-325MG [[place] 1 tab PO QID 05/25/14 05/24/19 History 5-325] Multivitamins, Thera [Multivitamin 1 tab PO DAILY 06/02/15 05/24/19 History (formulary)] Aspirin [Adult Low Dose Aspirin EC] 81 mg PO DAILY 04/02/19 06/01/19 History Nitroglycerin Sl Tabs [Nitrostat] 0.4 mg SUBLINGUAL Q5M PRN 04/02/19 05/24/19 History Sertraline HCl [Zoloft] 50 mg PO DAILY 04/02/19 05/24/19 History Turmeric Root Extract [Turmeric] 500 mg PO BID 04/02/19 05/24/19 History Lisinopril [Zestril] 5 mg PO DAILY #90 tab 04/05/19 05/24/19 Rx Calcium Carbonate/Vitamin D3 2 each PO DAILY 05/24/19 05/24/19 History [Calcium 600-Vit D3 800 Caplet] Mupirocin 2% Oint [Bactroban 2% 1 applic NASAL BID 05/24/19 05/24/19 History Oint] Simvastatin [Zocor] 10 mg PO HS 05/24/19 05/24/19 History Allergies Allergy/AdvReac Type Severity Reaction Status Date / Time bee venom protein (honey bee) Allergy Swelling Verified 05/24/19 14:15 sulfamethoxazole Allergy Rash/Hives Verified 05/24/19 14:15 [From Bactrim] trimethoprim [From Bactrim] Allergy Rash/Hives Verified 05/24/19 14:15 Physical Exam Vitals: Vital Signs Temp Pulse Pulse Pulse Resp BP BP 06/07/19 04:00 98.8 F 75 16 06/07/19 00:00 99.0 F 79 79 17 110/56 06/06/19 20:00 98.4 F 83 83 18 120/51 06/06/19 19:27 82 16 06/06/19 19:14 80 16 06/06/19 16:00 97.6 F 72 18 121/59 06/06/19 15:26 72 06/06/19 15:16 68 06/06/19 14:41 21 06/06/19 13:00 63 21 06/06/19 12:00 99 F 66 21 115/58 06/06/19 11:00 78 22 125/57 06/06/19 10:00 79 23 140/56 06/06/19 09:00 75 14 131/63 06/06/19 08:11 70 06/06/19 08:00 99 F 73 17 145/67 06/06/19 07:55 76 06/06/19 07:00 74 17 139/62 BP Pulse Ox 06/07/19 04:00 153/68 96 06/07/19 00:00 94 L 06/06/19 20:00 95 06/06/19 19:27 06/06/19 19:14 06/06/19 16:00 100 06/06/19 15:26 06/06/19 15:16 06/06/19 14:41 06/06/19 13:00 96 06/06/19 12:00 100 06/06/19 11:00 97 06/06/19 10:00 97 06/06/19 09:00 96 06/06/19 08:11 06/06/19 08:00 100 06/06/19 07:55 06/06/19 07:00 99 Intake and Output 06/06/19 06/06/19 06/07/19 14:59 22:59 06:59 Intake Total 437 Output Total 500 Balance -63 Intake: Oral 437 Output: Urine 500 Other: Voiding Method Toilet # Voids 1 1 0 # Bowel Movements 1 Weight 68.5 kg Skin: Atrophic, intact. General: Medium build and comfortable appearance. Head: Normocephalic, atraumatic. Eyes: Symmetric. Pupils equal round. Ears: Symmetric. Hearing within normal limits. Mouth: Clear. Neck: Supple. Carotid without bruit. Cardiac: Regular rate and rhythm. Lungs: Clear anteriorly and posteriorly. Abdomen: Soft active nontender. Extremities: Normal tone. Neurological: Mental status: Alert, cooperative, pleasant. Cranial nerves: Symmetric facial tone and trapezius. Motor: Active movement all 4 limbs. Sensation: Intact throughout. DTRs: Symmetric and equal throughout. Mobility: Nurse report standby assist to 5% minimal assist for transfers to bed side Concha chair this a.m. Results CBC & Chem 7: 06/06/19 05:18 06/06/19 05:18 Labs: Abnormal Lab Results - Last 24 Hours (Table) 06/06/19 06/06/19 06/06/19 Range/Units 05:18 06:51 11:52 BUN 24 H (7-17) mg/dL POC Glucose (mg/dL) 109 H 148 H (75-99) mg/dL 06/06/19 06/07/19 Range/Units 20:18 06:10 BUN (7-17) mg/dL POC Glucose (mg/dL) 111 H 101 H (75-99) mg/dL Assessment and Plan (1) Aortic valve replaced Current Visit: Yes Status: Acute Code(s): Z95.2 - PRESENCE OF PROSTHETIC HEART VALVE SNOMED Code(s): 9779375314125 Plan: Impression: 1. Cardiac debility. 2. Status post ascending aortic arch repair and aortic valve replacement 3. Hypertension. 4. Osteoarthritis. 5. Coronary artery disease. Comments and plan: At this time PT and OT are ongoing. Safety concerns noted. Discussed possible inpatient rehab with patient and she seems agreeable.
[2019-06-07 07:01] LABS: HCT 23.9 % (34.0-46.0); HGB 7.5 gm/dL (11.4-16.0); MCH 30.5 pg (25.0-35.0); MCHC 31.4 g/dL (31.0-37.0); MCV 97.2 fL (80.0-100.0); Mean Platelet Volume 8.3; Platelet Count 154 k/uL (150-450); RBC 2.46 m/uL (3.80-5.40); RDW 14.7 % (11.5-15.5); WBC 8.9 k/uL (3.8-10.6)
[2019-06-07 07:09] LABS: Calcium 8.1 mg/dL (8.4-10.2); Potassium 3.5 mmol/L (3.5-5.1)
[2019-06-07] MEDS ORDERED: CALCIUM GLUCONATE 1 GM in SODIUM CHLORIDE 0.9% 100 ML IVPB ONE (07:16)
[2019-06-07] MEDS ORDERED: POTASSIUM CHLORIDE ER 20 MEQ TAB.ER PO STA (07:16)
--- NOTE | 2019-06-07 07:46 | XR ---
EXAMINATION TYPE: XR chest 2V DATE OF EXAM: 06/07/2019 COMPARISON: 06/06/2019 HISTORY: Status post cardiac surgery TECHNIQUE: Frontal and lateral views of the chest are obtained. FINDINGS: Cardiomediastinal silhouette is enlarged with post CABG change. There is diffuse osseous d emineralization. Improving left basilar opacity with trace left pleural effusion remaining. Trace rig ht pleural effusion blunts the costophrenic angle. Biapical lucency of underlying COPD. Scattered per ihilar linear atelectasis. IMPRESSION: Improving left basilar opacity, likely atelectasis, and stable trace pleural effusions.
--- NOTE | 2019-06-07 08:41 | P.PN ---
Subjective Progress Note Date: 06/07/19 Principal diagnosis: Ascending aortic aneurysm, aortic valve insufficiency, coronary artery disease. Previous medical history of hypertension, hyperlipidemia, left internal carotid artery stenosis 50-79%, depression, uterine and skin cancer within the last 5 years, osteoarthritis, and family history of heart disease. Preoperative nasal swab positive for MRSA. POD #6 replacement of ascending aorta with 32 mm Gelweave tube graft with distal malik-arch reconstruction under circulatory arrest, replacement of aortic valve with 23 mm Avalus bovine pericardial bioprosthesis, coronary artery bypass grafting 1 with the left internal mammary artery to the left anterior descendin g artery, exclusion of the left atrial appendage with application of a 35 mm AtriCure clip, epi-aortic ultrasound, anterior mediastinal lymph node biopsy. Intra-and postoperative acute blood loss anemia and coagulopathy, expected outcome and given hemodilution, cardiopulmonary bypass pump, and circulatory arrest, status post transfusion Postoperative controlled atrial fibrillation, unexpected The patient is currently sitting up in the recliner on the cardiac stepdown unit in no acute distress. She states post surgical pain is controlled on current medication without narcotics, denies shortness of breath. She remains in normal sinus rhythm and hemodynamically stable, no further afib. Diarrhea has stopped, Cdiff negative. No other new concerns Objective - Vital Signs Vital signs: Vital Signs Temp 98.8 F 06/07/19 04:00 Pulse 75 06/07/19 04:00 Resp 16 06/07/19 04:00 BP 153/68 06/07/19 04:00 Pulse Ox 96 06/07/19 04:00 Intake & Output 06/06/19 06/07/19 06/07/19 18:59 06:59 18:59 Intake Total 437 Output Total 500 Balance -63 Weight 68.5 kg Intake: Oral 437 Output: Urine 500 Other: Voiding Method Toilet # Voids 1 0 # Bowel Movements 1 ABP, PAP, CO, CI - Last Documented Arterial Blood Pressure 98/36 Pulmonary Artery Pressure 17/3 Cardiac Output 3.9 Cardiac Index 2.5 - Constitutional General appearance: Present: cooperative, no acute distress - Respiratory Details: Lungs sounds diminished bilaterally. Respirations even, nonlabored. Currently on 2LPM NC with oxygen saturation 96%, 87% on room air this morning. Able to achieve 750-1000 mL on her incentive spirometry. Strong cough. - Cardiovascular Details: S1, S2 present. Regular rate and rhythm, normal sinus rhythm with bundle branch block on telemetry. Sternum stable. A/V epicardial pacemaker wires present, grounded. Palpable peripheral pulses bilaterally. Trace generalized edema present. Heart hugger in place with patient demonstrating appropriate use, antiembolism stockings, SCDs present. - Gastrointestinal Gastrointestinal Comment(s): Abdomen soft, nontender, nondistended. Active bowel sounds present 4 quadrants. Tolerating diet. Diarrhea resolved - Genitourinary Genitourinary Comment(s): Continues to void clear yellow urine - Integumentary Integumentary Comment(s): Skin is warm and dry with evidence of good perfusion. Anterior chest incision well approximated and covered with dry intact dressing. - Neurologic Neurologic: Present: CNII-XII intact - Musculoskeletal Musculoskeletal Comment(s): Shuffling gait. Ambulated patient 150 feet this morning Musculoskeletal: Present: gait normal, generalized weakness, strength equal bilaterally - Psychiatric Psychiatric Comment(s): Forgetful at times Psychiatric: Present: A&O x's 3, appropriate affect - Allied health notes Allied health notes reviewed: nursing - Labs CBC & Chem 7: 06/07/19 06:35 06/07/19 06:35 Labs: Abnormal Lab Results - Last 24 Hours (Table) 06/06/19 06/06/19 06/07/19 Range/Units 11:52 20:18 06:10 RBC (3.80-5.40) m/uL Hgb (11.4-16.0) gm/dL Hct (34.0-46.0) % BUN (7-17) mg/dL POC Glucose (mg/dL) 148 H 111 H 101 H (75-99) mg/dL Calcium (8.4-10.2) mg/dL 06/07/19 06/07/19 Range/Units 06:35 06:35 RBC 2.46 L (3.80-5.40) m/uL Hgb 7.5 L (11.4-16.0) gm/dL Hct 23.9 L (34.0-46.0) % BUN 19 H (7-17) mg/dL POC Glucose (mg/dL) (75-99) mg/dL Calcium 8.1 L (8.4-10.2) mg/dL - Imaging and Cardiology Chest x-ray: report reviewed, image reviewed Assessment and Plan Assessment: 1. Ascending aortic aneurysm, status post replacement with 32 mm Gelweave tube graft with distal malik-arch reconstruction under circulatory arrest 2. Aortic valve insufficiency, status post bioprosthetic aortic valve replacement 3. Coronary artery disease, status post 1 vessel CABG, CORRALES to the LAD 4. History of hypertension 5. Hyperlipidemia 6. Left internal carotid artery stenosis 50-79% 7. Depression 8. History of uterine and skin cancer 9. Osteoarthritis 10. Family history of heart disease 11. Preoperative nasal swab positive for MRSA 12. Intra-and postoperative acute blood loss anemia and coagulopathy 13. Postoperative controlled atrial fibrillation, currently in sinus rhythm 14. Postoperative diarrhea, C. diff negative, resolving Plan: 1. Continue low dose aspirin, plavix, statin, low dose beta mary, Cozaar. 2. Continue oral amiodarone, decreased to 200 mg daily. No anticoagulation 3. Wean O2 as tolerated. Encourage incentive spirometry use 10 times every hour while awake 4. Increase activity as tolerated. PT/OT/cardiac rehab consulted 5. Will monitor daily labs and x-rays. Electrolyte replacement per protocol. No transfusion 6. Insulin management per primary care service 7. Pain control with current medication regimen. Avoid narcotics 8. Epicardial Pacemaker wires discontinued this morning. Patient tolerated well. Absolute bedrest 1 hour 9. Lasix 10 mg IV BID. Will transition to 10 mg by mouth daily upon discharge 10. Discharge planning in progress. Anticipate discharge to [facility] today. Dr. Avila consulted 11. More recommendations to follow Time with Patient: Greater than 30
[2019-06-07] MEDS: IPRATROPIUM-ALBUTEROL 3 ML NEB INHALATION SCH ×3 (08:43→16:09)
[2019-06-07] MEDS ORDERED: AMIODARONE 200 MG TAB PO SCH (09:00)
[2019-06-07] MEDS: CLOPIDOGREL 75 MG TAB PO SCH (09:44)
[2019-06-07] MEDS: ATORVASTATIN 40 MG TAB PO SCH (09:44)
[2019-06-07] MEDS: HEPARIN SODIUM,PORCINE 5,000 UNIT/ML 1 ML VIAL SQ SCH ×2 (09:44)
[2019-06-07] MEDS: ACETAMINOPHEN TAB 500 MG TAB PO PRN (09:44)
[2019-06-07] MEDS: ASPIRIN 81 MG PO SCH (09:45)
[2019-06-07] MEDS: METOPROLOL TARTRATE 12.5 MG TAB PO SCH (09:45)
[2019-06-07] MEDS: MULTIVITAMINS, THERA 1 EACH TAB PO SCH (09:45)
[2019-06-07] MEDS: SERTRALINE 50 MG TAB PO SCH (09:46)
[2019-06-07] MEDS: LIDOCAINE 5% PATCH TOPICAL SCH (09:47)
[2019-06-07 10:13] VITALS: RESP 18
[2019-06-07 10:34] VITALS: BMI 29.5
--- NOTE | 2019-06-07 10:52 | P.PN ---
Subjective Progress Note Date: 06/07/19 On 06/07/2019 patient seen in follow-up on selective care unit. Today is postoperative day 6 status post replacement of the ascending aorta with a 32 mm Gelweave tube graft with distal malik-arch reconstruction under circulatory arrest, replacement of aortic valve with a 23 mm bovine bioprosthesis, CABG 1 with CORRALES to LAD, left atrial appendage exclusion with a clip, and anterior mediastinal lymph node biopsy. Patient is awake and alert, she is on 2 L of oxygen and the pulse ox of 95%, hemodynamically stable, and a sinus mechanism, with a rate of 74, afebrile, lung sounds reveal scattered basilar crackles, no rhonchi, no wheezing, patient is working on incentive spirometer. Denies any acute complaints, other than some mild stomach bloating especially after eating, she is still having some loose stools, she had 2 episodes today, and C. diff by PCR was negative, today's labs have been reviewed, showing white blood cell count of 8.9, hemoglobin of 7.5, electrolytes were within normal limits, BUN of 19 creatinine 0.76. Today's chest x-ray has been reviewed showing left basilar opacity which is improving, and stable trace pleural effusions. All chest tubes have been discontinued, Burton catheter has been discontinued, patient has been up in a chair and ambulating, tolerating activity fairly well. Discharge planning is in progress for discharge to subacute rehab possibly in the next 24 hours Objective - Vital Signs Vital signs: Vital Signs Temp 98.4 F 06/07/19 08:00 Pulse 74 06/07/19 08:00 Resp 18 06/07/19 08:00 BP 138/62 06/07/19 08:00 Pulse Ox 95 06/07/19 08:00 Intake & Output 06/06/19 06/07/19 06/07/19 18:59 06:59 18:59 Intake Total 437 240 Output Total 500 Balance -63 240 Weight 68.5 kg 68.5 kg Intake: Oral 437 240 Output: Urine 500 Other: Voiding Method Toilet # Voids 1 0 3 # Bowel Movements 1 ABP, PAP, CO, CI - Last Documented Arterial Blood Pressure 98/36 Pulmonary Artery Pressure 17/3 Cardiac Output 3.9 Cardiac Index 2.5 - Exam GENERAL EXAM: Alert, very pleasant, 84-year-old white female, on 2 L of oxygen, resting comfortably in bed comfortable in no apparent distress. HEAD: Normocephalic/atraumatic. EYES: Normal reaction of pupils, equal size. Conjunctiva pink, sclera white. NOSE: Clear with pink turbinates. THROAT: No erythema or exudates. NECK: No masses, no JVD, no thyroid enlargement, no adenopathy. CHEST: No chest wall deformity. Symmetrical expansion. Mid sternal and chest tube site incisions are clean dry and intact, sternum stable LUNGS: Equal air entry with no crackles, wheeze, rhonchi or dullness. CVS: Regular rate and rhythm, normal S1 and S2, no gallops, no murmurs, no rubs ABDOMEN: Soft, nontender. No hepatosplenomegaly, normal bowel sounds, no guarding or rigidity. EXTREMITIES: No clubbing, no edema, no cyanosis, 2+ pulses and upper and lower extremities. MUSCULOSKELETAL: Muscle strength and tone normal. SPINE: No scoliosis or deformity SKIN: No rashes CENTRAL NERVOUS SYSTEM: Alert and oriented -3. No focal deficits, tone is normal in all 4 extremities. PSYCHIATRIC: Alert and oriented -3. Appropriate affect. Intact judgment and insight. - Labs CBC & Chem 7: 06/07/19 06:35 06/07/19 06:35 Labs: Abnormal Lab Results - Last 24 Hours (Table) 06/06/19 06/06/19 06/07/19 Range/Units 11:52 20:18 06:10 RBC (3.80-5.40) m/uL Hgb (11.4-16.0) gm/dL Hct (34.0-46.0) % BUN (7-17) mg/dL POC Glucose (mg/dL) 148 H 111 H 101 H (75-99) mg/dL Calcium (8.4-10.2) mg/dL 06/07/19 06/07/19 Range/Units 06:35 06:35 RBC 2.46 L (3.80-5.40) m/uL Hgb 7.5 L (11.4-16.0) gm/dL Hct 23.9 L (34.0-46.0) % BUN 19 H (7-17) mg/dL POC Glucose (mg/dL) (75-99) mg/dL Calcium 8.1 L (8.4-10.2) mg/dL Assessment and Plan Plan: Assessment: 1 replacement of ascending aorta with a malik-arch reconstruction, aortic valve replacement with a bovine recovered a prosthesis and coronary artery bypass 1 with CORRALES to LAD and left atrial appendage clipping along with an anterior mediastinal lymph node biopsy. The patient is postop day #6 2 severe aortic regurgitation with a ascending aortic aneurysm and coronary artery disease 3 post thoracotomy and the patient is currently extubated and currently on nasal cannula. She is currently on 2 L of oxygen by nasal cannula. All of the chest tubes are out. 4 paroxysmal atrial fibrillation treated with amiodarone and currently his rhythm is sinus , she is in sinus rhythm with a bundle-branch block pattern 5 hypertension, with a well-controlled blood pressure 6 anemia, due to intraoperative blood loss, expected outcome surgery and the patient was transfused with a current hemoglobin is still above 7 and the patient overall has received a total of 3 units of packed RBC postop 7 coagulopathy post transfusion with a 6 units of fresh frozen plasma 8 chronic anxiety 9 osteoarthritis 10 new onset diarrhea, improving Plan: Continue current medical treatment, breathing is stable, encouraged deep breathing and coughing, today's chest x-ray has been reviewed showing improving left basilar atelectasis and stable small pleural effusions, hemodynamically stable, no acute events overnight, patient is tolerating ambulation with assistance. All chest tubes have been discontinued, incisions clean dry and intact, sternum stable. Patient is in sinus rhythm, with a controlled rate. Doing well, anticipate discharge to subacute rehab in the next 24 hours. I performed a history & physical examination of the patient and discussed their management with my nurse practitioner, Aracely Cr. I reviewed the nurse practitioner's note and agree with the documented findings and plan of care. Lung sounds are positive for a few basilar rales. The findings and the impress ion was discussed with the patient. I attest to the documentation by the nurse practitioner. Time with Patient: Less than 30
--- NOTE | 2019-06-07 11:11 | P.PN ---
Subjective Progress Note Date: 06/07/19 This is a pleasant 84-year-old female, postop day 6, status post replacement of the ascending aorta with a 32 mm Gelweave tube graft with distal malik-arch reconstruction under circulatory arrest, replacement of aortic valve with a 23 mm bovine bioprosthesis, CABG 1 with CORRALES to the LAD, left atrial appendage exclusion with clip, and anterior mediastinotomy lymph node biopsy. Patient was seen and examined this morning, complaining of some mild nausea this morning otherwise hemodynamically stable. Chest x-ray from today was reviewed showing left basilar obesity which is improving and some trace pleural effusions. Hemoglobin 7.5 today, potassium 3.5, BUN 19, creatinine 0.7. Objective - Vital Signs Vital signs: Vital Signs Temp 98.4 F 06/07/19 08:00 Pulse 74 06/07/19 08:00 Resp 18 06/07/19 08:00 BP 138/62 06/07/19 08:00 Pulse Ox 95 06/07/19 08:00 Intake & Output 06/06/19 06/07/19 06/07/19 18:59 06:59 18:59 Intake Total 437 240 Output Total 500 Balance -63 240 Weight 68.5 kg 68.5 kg Intake: Oral 437 240 Output: Urine 500 Other: Voiding Method Toilet # Voids 1 0 3 # Bowel Movements 1 ABP, PAP, CO, CI - Last Documented Arterial Blood Pressure 98/36 Pulmonary Artery Pressure 17/3 Cardiac Output 3.9 Cardiac Index 2.5 - Exam HEAD: Normocephalic/atraumatic. EYES: Normal reaction of pupils, equal size. Conjunctiva pink, sclera white. NOSE: Clear with pink turbinates. THROAT: No erythema or exudates. NECK: No masses, no JVD, no thyroid enlargement, no adenopathy. CHEST: No chest wall deformity. Symmetrical expansion. Mid sternal and chest tube site incisions are clean dry and intact, sternum stable LUNGS: Equal air entry with no crackles, wheeze, rhonchi or dullness. CVS: Regular rate and rhythm, normal S1 and S2, no gallops, no murmurs, no rubs ABDOMEN: Soft, nontender. No hepatosplenomegaly, normal bowel sounds, no guarding or rigidity. EXTREMITIES: No clubbing, no edema, no cyanosis, 2+ pulses and upper and lower extremities. MUSCULOSKELETAL: Muscle strength and tone normal. SPINE: No scoliosis or deformity SKIN: No rashes CENTRAL NERVOUS SYSTEM: Alert and oriented -3. No focal deficits, tone is normal in all 4 extremities. PSYCHIATRIC: Alert and oriented -3. Appropriate affect. Intact judgment and insight. - Labs CBC & Chem 7: 06/07/19 06:35 06/07/19 06:35 Labs: Abnormal Lab Results - Last 24 Hours (Table) 06/06/19 06/06/19 06/07/19 Range/Units 11:52 20:18 06:10 RBC (3.80-5.40) m/uL Hgb (11.4-16.0) gm/dL Hct (34.0-46.0) % BUN (7-17) mg/dL POC Glucose (mg/dL) 148 H 111 H 101 H (75-99) mg/dL Calcium (8.4-10.2) mg/dL 06/07/19 06/07/19 Range/Units 06:35 06:35 RBC 2.46 L (3.80-5.40) m/uL Hgb 7.5 L (11.4-16.0) gm/dL Hct 23.9 L (34.0-46.0) % BUN 19 H (7-17) mg/dL POC Glucose (mg/dL) (75-99) mg/dL Calcium 8.1 L (8.4-10.2) mg/dL Assessment and Plan Plan: Assessment and plan: #1 replacement of ascending aorta with a malik-arch reconstruction, aortic valve replacement with a bovine recovered a prosthesis and coronary artery bypass 1 with CORRALES to LAD and left atrial appendage clipping along with an anterior mediastinal lymph node biopsy. The patient is postop day #6 #2 severe aortic regurgitation with a ascending aortic aneurysm and coronary artery disease #3 post thoracotomy and the patient is currently extubated and currently on nasal cannula. She is currently on 2 L of oxygen by nasal cannula. All of the chest tubes are out. #4 paroxysmal atrial fibrillation treated with amiodarone , she is in sinus [facility] with a bundle-branch block pattern #5 hypertension #6 anemia Plan From cardiology's perspective we will continue the patient on her current medications. Continue incentive spirometry. DNP note has been reviewed, I agree with a documented findings and plan of care. Patient was seen and examined.
[2019-06-07] MEDS: LOSARTAN 25 MG TAB PO SCH (11:49)
[2019-06-07 11:59] VITALS: BP 125/66; PULSE 77; TEMP 98.3
[2019-06-07] MEDS ORDERED: FOLIC ACID 1 MG TAB PO SCH (12:00)
[2019-06-07] MEDS ORDERED: THIAMINE 100 MG TAB PO SCH (12:00)
[2019-06-07 12:21] LABS: Glucose,Whole Blood 104 mg/dL (75-99)
--- NOTE | 2019-06-07 13:33 | P.DS ---
Providers Date of admission: 06/01/19 05:40 Expected date of discharge: 06/07/19 Attending physician: Darius Mcduffie Consults: 06/01/19 16:41 Consult Physician Routine Consulting Provider: Bernie Norton Consult Reason/Comments: Manager Gaming Consult: post cardiac surgery Do you want consulting provider notified?: Yes Placement Type Exists?: Yes Consult Physician Routine Consulting Provider: Joseph Blackwell Consult Reason/Comments: md leigh; [facility] patient Do you want consulting provider notified?: Yes Placement Type Exists?: Yes Consult Physician Routine Consulting Provider: Lena Murphy Consult Reason/Comments: Server Assistant Consult: post cardiac surgery Do you want consulting provider notified?: Yes Placement Type Exists?: Yes 06/05/19 14:10 Consult Physician Routine Consulting Provider: Ajay Avila Consult Reason/Comments: IPR Do you want consulting provider notified?: Yes Primary care physician: Laly Mcgarry [facility] Course: FINAL DIAGNOSIS: 1. Ascending aortic aneurysm, aortic valve insufficiency, coronary artery disease 2. History of hypertension 3. Hyperlipidemia 4. Left internal carotid artery stenosis 50-79% 5. Depression 6. Uterine and skin cancer within the last 5 years 7. Osteoarthritis 8. Family history of heart disease 9. Preoperative nasal swab positive for MRSA 10. Intra-and postoperative acute blood loss anemia and coagulopathy, status post transfusion 11. Postoperative controlled paroxysmal atrial fibrillation, resolved PRINCIPAL PROCEDURE: 1. Replacement of ascending aorta with 32 mm Gelweave tube graft with distal malik-arch reconstruction under circulatory arrest 2. Replacement of aortic valve with 23 mm Avalus bovine pericardial bioprosthesis 3. Coronary artery bypass grafting 1 with the left internal mammary artery to the left anterior descending artery 4. Exclusion of the left atrial appendage with application of a 35 mm AtriCure clip 5. Epi-aortic ultrasound 6. Anterior mediastinal lymph node biopsy, benign HISTORY OF PRESENT ILLNESS: This is an 84-year-old very active female who follows on an outpatient basis with Dr. Laly Mcgarry. She lives with her son and their house is heated with wood, she hauls wood for the wood stoves. She began to experience fatigue and shortness of breath after hauling wood. She denied any anginal symptomatology or chest pain, she has been following with Dr. Murphy for aortic insufficiency for several years. Recently she underwent workup for coronary artery disease and was found to have mild to moderate coronary artery disease in the left anterior descending artery and right coronary system with mild disease in the right system but 70-80% proximal stenosis in the LAD,. Echocardiogram demonstrated trileaflet aortic valve with moderate aortic insufficiency, severely dilated left atrium, normal LV and right ventricular function, mild to moderate mitral regurgitation, and ascending aortic dilatation. Computed tomography scan of the chest confirmed presence of markedly dilated ascending aorta with maximal diameter 5.6 cm. There was noted calcification present in the distal ascending aorta and aortic arch. The jair fuentes was referred to Dr. Mcduffie from cardiothoracic surgery. She was recommended to undergo single vessel CABG from the CORRALES to the LAD, replacement of the ascending aorta, and replacement of the aortic valve with a tissue prosthesis. The usual perioperative course was discussed in detail with the patient and her family, all risks and benefits were explained, all questions were answered, and consent was obtained to proceed with surgery. The patient was scheduled for surgery at the earliest possible date. HOSPITAL COURSE: The patient was brought to the hospital on 06/01/2019, taken to the preoperative area, prepared in the usual fashion, and subsequently taken to the operating room where Dr. Mcduffie performed replacement of ascending aorta with 32 mm Gelweave tube graft with distal malik-arch reconstruction under circulatory arrest, replacement of aortic valve with 23 mm Avalus bovine pericardial bioprosthesis, coronary artery bypass grafting 1 with the left internal mammary artery to the left anterior descending artery, exclusion of the left atrial appendage with application of a 35 mm AtriCure clip, epi-aortic ultrasound, and anterior mediastinal lymph node biopsy which was benign. Upon completion of surgery the patient was transferred to the cardiovascular intensive care unit where she was recovered, monitored hemodynamically, and where she progressed to cardiac rehabilitation phase 1. She was extubated, all lines, tubes, and drips were discontinued when appropriate. She did experience intra-and postoperative acute blood loss anemia requiring transfusion of multipl e blood products. In addition she had a short run episode of controlled paroxysmal atrial fibrillation which resolved with amiodarone. She continued to recover uneventfully, and she was transferred to [facility] cardiac stepdown unit for further monitoring and rehabilitation. Her oxygen was titrated down although she continued to need 2 L nasal cannula, she continued to work with physical and occupational therapy, she was tolerating oral diet, her pain was controlled, and she was ready to be discharged to [facility] inpatient rehab on postoperative day #6. She received written and verbal instruction regarding her medications, activity restrictions, signs and symptoms requiring physician notification, and follow-up appointments. COMPLICATIONS: The patient experienced postoperative blood loss anemia requiring transfusion, and paroxysmal atrial fibrillation requiring amiodarone. Patient Condition at Discharge: Stable Plan - Discharge Summary Discharge Rx Participant: No New Discharge Prescriptions: New Amiodarone [Cordarone] 200 mg PO DAILY tab Losartan [Cozaar] 25 mg PO DAILY@1200 tab Ipratropium-Albuterol Nebulize [Duoneb 0.5 mg-3 mg/3 ml Soln] 3 ml INHALATION RT-QID ml Ipratropium-Albuterol Nebulize [Duoneb 0.5 mg-3 mg/3 ml Soln] 3 ml INHALATION RT-Q2H PRN ml PRN Reason: Shortness Of Breath Or Wheezing Folic Acid 1 mg PO DAILY@1200 tab Heparin Sodium,Porcine [Heparin Sodium] 5,000 unit SQ Q8HR vial Ferrous Sulfate [Iron (65 MG Elemental)] 325 mg PO BID-W/MEALS tab Potassium Chloride ER [K-Dur 20] 20 meq PO DAILY #30 tab Furosemide [Lasix] 10 mg PO DAILY #30 tab Lidocaine 5% Patch [Lidoderm 5% Patch] 1 patch TOPICAL DAILY patch Atorvastatin [Lipitor] 40 mg PO DAILY tab Metoprolol Tartrate [Lopressor] 12.5 mg PO BID tab Melatonin 3 mg PO HS tablet Clopidogrel [Plavix] 75 mg PO DAILY tab Pantoprazole [Protonix] 40 mg PO AC-BRKFST tablet. Acetaminophen Tab [Tylenol] 1,000 mg PO Q6HR PRN tab PRN Reason: Fever And/ Or Pain Thiamine [Vitamin B-1] 100 mg PO DAILY@1200 tab Ascorbic Acid [Vitamin C] 500 mg PO BID-W/MEALS tab Continue Multivitamins, Thera [Multivitamin (formulary)] 1 tab PO DAILY Aspirin [Adult Low Dose Aspirin EC] 81 mg PO DAILY Sertraline HCl [Zoloft] 50 mg PO DAILY Calcium Carbonate/Vitamin D3 [Calcium 600-Vit D3 800 Caplet] 2 each PO DAILY Discontinued Diltiazem HCl [Cardizem] 120 mg PO DAILY HYDROcodone/APAP 5-325MG [[place] 5-325] 1 tab PO QID Turmeric Root Extract [Turmeric] 500 mg PO BID Nitroglycerin Sl Tabs [Nitrostat] 0.4 mg SUBLINGUAL Q5M PRN PRN Reason: Chest Pain Lisinopril [Zestril] 5 mg PO DAILY #90 tab Simvastatin [Zocor] 10 mg PO HS Mupirocin 2% Oint [Bactroban 2% Oint] 1 applic NASAL BID Discharge Medication List Multivitamins, Thera [Multivitamin (formulary)] 1 tab PO DAILY 06/02/15 [History] Aspirin [Adult Low Dose Aspirin EC] 81 mg PO DAILY 04/02/19 [History] Sertraline HCl [Zoloft] 50 mg PO DAILY 04/02/19 [History] Calcium Carbonate/Vitamin D3 [Calcium 600-Vit D3 800 Caplet] 2 each PO DAILY 05/24/19 [History] Acetaminophen Tab [Tylenol] 1,000 mg PO Q6HR PRN tab 06/07/19 [Rx] Amiodarone [Cordarone] 200 mg PO DAILY tab 06/07/19 [Rx] Ascorbic Acid [Vitamin C] 500 mg PO BID-W/MEALS tab 06/07/19 [Rx] Atorvastatin [Lipitor] 40 mg PO DAILY tab 06/07/19 [Rx] Clopidogrel [Plavix] 75 mg PO DAILY tab 06/07/19 [Rx] Ferrous Sulfate [Iron (65 MG Elemental)] 325 mg PO BID-W/MEALS tab 06/07/19 [Rx] Folic Acid 1 mg PO DAILY@1200 tab 06/07/19 [Rx] Furosemide [Lasix] 10 mg PO DAILY #30 tab 06/07/19 [Rx] Heparin Sodium,Porcine [Heparin Sodium] 5,000 unit SQ Q8HR vial 06/07/19 [Rx] Ipratropium-Albuterol Nebulize [Duoneb 0.5 mg-3 mg/3 ml Soln] 3 ml INHALATION RT-Q2H PRN ml 06/07/19 [Rx] Ipratropium-Albuterol Nebulize [Duoneb 0.5 mg-3 mg/3 ml Soln] 3 ml INHALATION RT-QID ml 06/07/19 [Rx] Lidocaine 5% Patch [Lidoderm 5% Patch] 1 patch TOPICAL DAILY patch 06/07/19 [Rx] Losartan [Cozaar] 25 mg PO DAILY@1200 tab 06/07/19 [Rx] Melatonin 3 mg PO HS tablet 06/07/19 [Rx] Metoprolol Tartrate [Lopressor] 12.5 mg PO BID tab 06/07/19 [Rx] Pantoprazole [Protonix] 40 mg PO AC-BRKFST tablet. 06/07/19 [Rx] Potassium Chloride ER [K-Dur 20] 20 meq PO DAILY #30 tab 06/07/19 [Rx] Thiamine [Vitamin B-1] 100 mg PO DAILY@1200 tab 06/07/19 [Rx] Follow up Appointment(s)/Referral(s): Lena Murphy MD [STAFF PHYSICIAN] - 1 Week (Please make follow-up appointment upon discharge from inpatient rehab) Rehab Dannielle BETANCOURT,Cardiac [NON-STAFF] - 4 Weeks (You will receive a phone call 4 weeks after discharge to set up initial evaluation) Laly Mcgarry MD [Primary Care Provider] - 1 Week (Please make follow-up appointment upon discharge from inpatient rehab) Darius Mcduffie MD [STAFF PHYSICIAN] - 06/24/19 1:00 pm Isreal Rausch DO [Doctor of Osteopathic Medicine] - 1 Week (Please make follow- up appointment upon discharge from inpatient rehab) Activity/Diet/Wound Care/Special Instructions: Consultations at [facility] inpatient rehab: 1. Dr. Murphy for cardiology 2. Dr. Rausch for pulmonology ABSOLUTELY NO NARCOTICS WITHOUT DISCUSSING WITH CARDIOTHORACIC SURGERY FIRST DISCHARGE INSTRUCTIONS: 1. No driving for 4 weeks, or until physician gives their ok. 2. The patient should sleep in their own bed, no medical bed needed. 3. Stairs are not an issue. If the bedroom is upstairs, it is advised that the patient go up at night and down in the morning for the first week. Go slowly, using handrail and take 1 step at a time. 4. AMANDA hose are to be worn for 30 days or until physician discontinues. 5. Heart hugger is to be worn 100% of the time until physician discontinues.(except when showering) 6. No lifting, pushing, or pulling more than 10 pounds for 12 weeks. The physician will advise of any restriction changes. 7. The patient is expected to continue the prescribed walking program. 8. Continue pain control per as needed orders. 9. Continue with incentive spirometry and splinting/heart hugger until otherwise directed by the physician. 10. Must shower daily using liquid antibacterial soap and a separate white washcloth for each individual incision. 11. Routine sternal incision care. No powders, lotions, ointments on incisions. No dressings are necessary on incisions unless they are draining. Dermabond tape is to remain on sternal incision until surgeon follow-up. 12. Please call surgeon/EYELET RIVETER for temp greater than 101 F or purulent drainage from incisions. 13. All prescriptions given by surgeon for 30 days. Refills need to be filled through lubrication technician/primary care physician. 14. A Red armband has been placed on the patient. It should be worn for 30 days post surgery and will be removed by the cardiac surgeons. If an ER visit is necessary, please make sure the number on the Red armband is called. 15. You have been referred to and are expected to begin Cardiac Rehab in approximately 4-6 weeks. Inpatient rehab/HOME HEALTH SERVICES TO PROVIDE: RN SKILLED HOME CARE SERVICES FOR POST-OP SURGICAL PATIENTS WITH THE FOLLOWING: Coronary Artery Bypass Surgery (CABG), Mitral Valve Replacement/Repair ( MVR), Aortic Valve Replacement/Repair (AVR) RN TO CONTINUE EDUCATION FROM ``ROAD TO A HEALTH HEART PATIENT EDUCATION MANUAL (GIVEN TO PATIENT IN THE HOSPITAL) MEDICATION RECONCILIATION WITH EDUCATION NEEDED ON FIRST HOME VISIT EMPHASIZE IMPORTANCE OF WEARING BREAST SUPPORT/HEART HUGGER ENCOURAGE USE OF INCENTIVE SPIROMETER 10 X EVERY HOUR WHILE AWAKE ENCOURAGE UTILIZATION OF LOWER EXTREMITY COMPRESSION STOCKINGS/AMANDA HOSE and ELEVATE LEGS ABOVE LEVEL OF HEART WHILE AT REST. ENCOURAGE AMBULATION 3-5x/day INCREASING TOLERATES, WHILE AVOIDING EXTREMES IN TEMPERATURE FREQUENCY: RN TO OPEN THE PATIENT WITHIN 24 HOURS OF DISCHARGE FROM INPATIENT REHAB WITH TELEHEALTH INSTALLED AT [facility], RN TO VISIT 2-3 X A WEEK FOR 4 WEEKS ESTABLISHED BY PATIENT NEEDS. LABORATORY: CBC, CMP TO BE DRAWN PER REHAB PROTOCOL, (RAN STAT) FAX RESULTS TO [phone]. TELEHEALTH PARAMETERS: WEIGHT: NOTIFY MD OF WEIGHT GAIN OF 2 LBS IN 24 HOURS OR 5 LBS IN ONE WEEK HR: NOTIFY MD OF HR <55 BPM OR HR>100 BPM BP: NOTIFY MD IF BP <90/55 OR BP>140/100 O2 SAT: NOTIFY MD IF PO2<93% ON ROOM AIR SEND TELEHEALTH REPORT TO GEOLOGICAL SAMPLE TESTER AND CARDIOVASCULAR SURGEON THE FIRST WEEK OF CARE AND THEN BI-WEEKLY. PLEASE ADDITIONALLY COMMUNICATE ANY ABNORMALS AND NEW FINDINGS TO THE SURGEONS OFFICE. For any questions or concerns please call bakery worker Yuko @ or Dilshad @
--- NOTE | 2019-06-07 23:20 | PN ---
PROGRESS NOTE DATE OF SERVICE: 06/07/2019 This 84-year-old woman who was admitted with aortic valve replacement and aortic graft is improving significantly. No chest pain or palpitations. No fever. PHYSICAL EXAMINATION: Alert and oriented x3. Pulse 77, blood pressure 125/66, respirations 17, temperature 98.2, pulse ox 99% on 2 liters nasal cannula. HEENT: Conjunctivae normal. NECK: No jugular venous distention. CARDIOVASCULAR: S1, S2 muffled. Status post surgery. RESPIRATIONS: Breath sounds diminished in the bases. A few scattered rhonchi. No crackles. ABDOMEN: Soft, nontender. LEGS: No edema. No swelling. NERVOUS SYSTEM: No focal deficits. LABS: WBC 8.6, hemoglobin 7.5. ASSESSMENT: 1. Status post aortic valve replacement as well as ascending aortic arch replacement with a graft and reconstruction with aortic root replacement with bovine pericardial prosthesis aortic valve as well as CABG with CORRALES to LAD. 2. Anemia, normocytic, as expected postoperatively. 3. Elevated blood sugars, improved. 4. History of coronary artery disease. 5. Hypertension. 6. History of gait dysfunction. 7. History of metabolic encephalopathy, confusion acutely. 8. Hyperlipidemia. 9. History of degenerative joint disease. 10.History of ascending aortic aneurysm with severe aortic regurgitation. 11.History of uterine cancer. 12.History of anxiety. 13.FULL CODE. RECOMMENDATIONS AND DISCUSSION: I recommend to continue current medications, continue incentive spirometry, resume the rest of the medications. The patient is slated for inpatient rehab under Dr. Avila in [facility]. Otherwise, I would recommend to follow up with Dr. Mcgarry, who is the primary physician. MMODL / IJN: [id number] /
== END 2019-06-07 16:36 | DRG 219 ==
LOC: 2ORMAIN 05:40 → 2SICU 13:43 → 3SCARD 06-06 14:21
PROVIDERS: ADMIT Thoracic Surgery (Cardiothoracic Vascular Surgery); ATTEND Thoracic Surgery (Cardiothoracic Vascular Surgery)
PROC: 02RX08Z Replacement of Thoracic Aorta, Ascending/Arch with Zooplastic Tissue, Open Approach (ICD-10-PCS; principal; 2019-06-01 08:00)
PROC: 5A1223Z Performance of Cardiac Pacing, Continuous (ICD-10-PCS; principal; 2019-06-01 08:00)
PROC: 02100Z9 Bypass Coronary Artery, One Artery from Left Internal Mammary, Open Approach (ICD-10-PCS; principal; 2019-06-01 08:00)
PROC: 02L70CK Occlusion of Left Atrial Appendage with Extraluminal Device, Open Approach (ICD-10-PCS; principal; 2019-06-01 08:00)
PROC: 02RX0JZ Replacement of Thoracic Aorta, Ascending/Arch with Synthetic Substitute, Open Approach (ICD-10-PCS; principal; 2019-06-01 08:00)
PROC: 5A1221Z Performance of Cardiac Output, Continuous (ICD-10-PCS; principal; 2019-06-01 08:00)
PROC: 07B70ZZ Excision of Thorax Lymphatic, Open Approach (ICD-10-PCS; principal; 2019-06-01 08:00)
PROC: 30243R1 Transfusion of Nonautologous Platelets into Central Vein, Percutaneous Approach (ICD-10-PCS; 2019-06-01 08:00)
PROC: 30243K1 Transfusion of Nonautologous Frozen Plasma into Central Vein, Percutaneous Approach (ICD-10-PCS; 2019-06-01 08:00)
PROC: 30243N1 Transfusion of Nonautologous Red Blood Cells into Central Vein, Percutaneous Approach (ICD-10-PCS; 2019-06-02)
DX: I08.0 Rheumatic disorders of both mitral and aortic valves (principal); G93.41 Metabolic encephalopathy; I46.9 Cardiac arrest, cause unspecified; D62 Acute posthemorrhagic anemia; D68.9 Coagulation defect, unspecified; E87.3 Alkalosis; I97.120 Postprocedural cardiac arrest following cardiac surgery; I97.190 Other postprocedural cardiac functional disturbances following cardiac surgery; I25.10 Atherosclerotic heart disease of native coronary artery without angina pectoris; I71.2 Thoracic aortic aneurysm, without rupture; I95.9 Hypotension, unspecified; E78.5 Hyperlipidemia, unspecified; F32.9 Major depressive disorder, single episode, unspecified; F41.9 Anxiety disorder, unspecified; I10 Essential (primary) hypertension; I44.7 Left bundle-branch block, unspecified; I65.22 Occlusion and stenosis of left carotid artery; M19.90 Unspecified osteoarthritis, unspecified site; R05 Cough; R19.7 Diarrhea, unspecified; R26.9 Unspecified abnormalities of gait and mobility; I48.0 Paroxysmal atrial fibrillation; R73.9 Hyperglycemia, unspecified; R59.0 Localized enlarged lymph nodes; Z79.82 Long term (current) use of aspirin; Z79.899 Other long term (current) drug therapy; Z79.891 Long term (current) use of opiate analgesic; Z90.710 Acquired absence of both cervix and uterus; Z87.891 Personal history of nicotine dependence; Z85.828 Personal history of other malignant neoplasm of skin; Z85.42 Personal history of malignant neoplasm of other parts of uterus; Z90.49 Acquired absence of other specified parts of digestive tract; Z96.641 Presence of right artificial hip joint; Z88.2 Allergy status to sulfonamides; Z88.1 Allergy status to other antibiotic agents; Z91.030 Bee allergy status; Z98.42 Cataract extraction status, left eye; Z98.41 Cataract extraction status, right eye; Z96.1 Presence of intraocular lens; Z82.49 Family history of ischemic heart disease and other diseases of the circulatory system; Z83.3 Family history of diabetes mellitus; Z82.61 Family history of arthritis
CPT/HCPCS: 71045; 71046; 80048; 80053; 82330; 82805; 83735; 84132; 85025; 85027; 85384; 85520; 85610; 85730; 86850; 86891; 86900; 86901; 86920; 87324; 88305; 88311; 94002; 94003; 94640